=== PATIENT | female | born 1955 | race Caucasian/White ===

== ENCOUNTER 2016-05-24 12:43 | Emergency (ER) | payer MEDICARE, OTHER ==
[2016-05-24 13:16] VITALS: BP 137/92
[2016-05-24] MEDS ORDERED: ALPRAZolam 0.25 MG TABLET PO ONE (13:49)
--- NOTE | 2016-05-24 13:58 | ERNOTE ---
Psychological HPI - General Time Seen by Provider: 05/24/16 13:41 Source: patient Exam Limitations: no limitations Episode Description: Patient has a history of anxiety and depression. I last saw her about a week ago for depression with suicidal ideation. She went home with friends who took care of her medication at that time. She states that they still give her only 1- 2 days at a time. She will be moving in a site house in [place] in two days. AT that time the [employer] workers will be taking care of her medications. Even though she is looking forward to moving there she has been very anxious today and feels her heart racing. she used to be on Xanax and ativan, recently only been on vistaril which is not helping. She is scheduled to see her psychiatrist on four days and is still seeing a counsellor as well Timing/Duration: this morning - Immun/Allergies/Home Medication Immunization: IMMUNIZATION HX Immunizations Up to Date Yes History of Influenza Vaccine No Hx Pneumococcal Vaccination No Review of Systems - Review of Systems Constitutional: Absent: fever EENTM: Absent: sore throat Respiratory: Absent: short of breath Cardiology: Present: palpitations. Absent: chest pain Gastrointestinal/Abdominal: Absent: abdominal pain, nausea, vomiting Neurological: Absent: headache - Patient's Past Medical History Patient History - Medical: Anxiety, Chronic Pain, Depression, Migraines Patient History - Cardiac/Respiratory: Myocardial Infarction - per patient Patient History - Cancer: No Hx of Cancer Patient History - Surgical Procedures: Appendectomy, Cholecystectomy, , Hysterectomy, Other - Family History Father Family History - Medical: Diabetes Type 1, Other Family History - Cardiac/Respiratory: Asthma, Bronchitis, Cardiac Arrest, Coronary Heart Disease, COPD, Hypertension, Pneumonia - Social History Living Situations: home Smoking Status: Current every day smoker Have you smoked in the past 12 months: Yes Alcohol Use: none Drug Use: cocaine, marijuana Psychological Exam - Physical Exam General Appearance: Present: WD/WN, no apparent distress, anxious Neurological: Present: alert, normal mood/affect, oriented x 3 Thoughts/Hallucinations: Present: normal thought pattern, no apparent hallucination Behavior/Eye Contact/Speech: Present: cooperative, good eye contact, normal speech Respiratory: Present: lungs clear, normal breath sounds, no respiratory distress , no accessory muscle use Cardiovascular/Chest: Present: regular rate, rhythm, no murmur Skin Exam: Present: normal color, warm/dry ED Progress - PROGRESS/REASSESSMENT Chief Complaint: Anxiety - VITAL SIGNS Patient's Vital Signs:: I have reviewed the patient's vital signs. Vital Signs - Last Taken Temp 36.0 C L 05/24/16 13:13 Pulse 84 05/24/16 13:13 Resp 14 05/24/16 13:13 BP 137/92 05/24/16 13:13 Pulse Ox 98 05/24/16 13:13 Departure - Departure Clinical Impression: Anxiety attack Disposition: Home self-care Condition: Good Instructions: Panic Attacks, [id number] Additional Instructions: follow up with your psychiatrist and counselor as scheduled Referrals: Janell Galarza MD [Primary Care Provider] - Prescriptions: ALPRAZolam [Xanax] 1 mg PO TID PRN #6 tablet PRN Reason: Anxiety
[2016-05-24] MEDS ORDERED: ALPRAZolam 0.25 MG TABLET ONE (14:04)
== END 2016-05-24 14:12 | disposition home or self-care (01) ==
LOC: ER 12:43
DX: F41.0 Panic disorder [episodic paroxysmal anxiety] (principal); F17.210 Nicotine dependence, cigarettes, uncomplicated

== ENCOUNTER 2016-08-21 12:53 | Emergency (ER) | payer MEDICARE, OTHER ==
--- NOTE | 2016-08-21 13:35 | ERNOTE ---
Addendum entered and electronically signed by Jordy Thurman MD 08/22/16 03:12 : Pt here for court ordered psych eval. waiting for placement. She was given her usual night time meds from her supply once we checked the identity of the medication she had in her med organizer. Original Note: Psychological HPI - Date Date of Service: 08/21/16 - General Chief Complaint: Psychiatric Problem Source: Reports: patient, other - court committment papers Exam Limitations: Reports: clinical condition - Immun/Allergies/Home Medications Allergies/Adverse Reactions: Allergies propranolol [Propranolol] Allergy (Severe, Verified 05/24/16 13:16) Anaphylaxis rash swelling gabapentin [From Neurontin] Allergy (Unknown, Verified 05/24/16 13:16) ampicillin [Ampicillin] Adverse Reaction (Intermediate, Verified 05/24/16 13:16) Itching, rash, swelling aspirin Adverse Reaction (Intermediate, Verified 05/24/16 13:16) Shortness of Breath NSAIDS (Non-Steroidal Anti-Inflamma Adverse Reaction (Intermediate, Verified 07/09 13:16) Shortness of Breath prochlorperazine maleate [From Compazine] Adverse Reaction (Intermediate, Verified 05/24/16 13:16) Itching, rash, swelling codeine [Codeine] Adverse Reaction (Mild, Verified 05/24/16 13:16) Itching, rash, swelling diphenhydramine HCl [From Benadryl] Adverse Reaction (Mild, Verified 05/24/16 13 :16) hyper doxycycline Adverse Reaction (Mild, Verified 05/24/16 13:16) Itching ketorolac tromethamine [From Toradol] Adverse Reaction (Mild, Verified 05/24/16 13:16) rash metoclopramide HCl [From Reglan] Adverse Reaction (Mild, Verified 05/24/16 13:16 ) Itching Penicillins Adverse Reaction (Mild, Verified 05/24/16 13:16) Itching prochlorperazine edisylate [From Compazine] Adverse Reaction (Mild, Verified 07/09 13:16) Itching, rash, swelling promethazine HCl [From Phenergan] Adverse Reaction (Mild, Verified 05/24/16 13: 16) Itching Sulfa (Sulfonamide Antibiotics) [Sulfa(Sulfonamide Antibiotics)] Adverse Reaction (Mild, Verified 05/24/16 13:16) Itching trazadone Allergy (Severe, Uncoded 05/24/16 13:16) Anaphylaxis Home Medications: HOME MEDICATIONS lamoTRIgine [Lamictal Xr] 25 mg PO DAILY 03/17/16 [Last Taken 05/03/16 25 mg] Pantoprazole Sodium [Protonix] 40 mg PO DAILY 03/29/16 [Last Taken 05/03/16 40 mg] Ziprasidone HCl [Geodon] 60 mg PO HS 03/29/16 [Last Taken Unknown] Mirtazapine [Remeron] 15 mg PO HS 05/03/16 [Last Taken Unknown] Topiramate [Topiramate ER] 25 mg PO 05/03/16 [Last Taken Unknown] hydrOXYzine PAMOATE [Hydroxyzine Pamoate] 50 mg PO 05/03/16 [Last Taken 50 mg] Cyclobenzaprine HCl [Flexeril] 10 mg PO TID PRN #30 tab 05/14/16 [Last Taken Unknown] ALPRAZolam [Xanax] 1 mg PO TID PRN #6 tablet 05/24/16 [Last Taken Unknown] - History of Present Illness Narrative: Patient was brought to the [facility] ER by a law officer with court papers in hand. She is now residing in an [facility] residence. The papers alledge hallucinations , delusions and self harming behaviours, including refusing to followthrough with recommended cares. She denies all of this, and is tearful. Repeatedly says she hasn't been hurting anybody. Is worried about her son, who abuses meth and of whom she is afraid. Time Seen by Provider: 08/21/16 13:19 Arrived by: Reports: police Onset/duration: Reports: other Intent: Reports: other Prior Treament: Reports: similar symptoms before Review of Systems - Review of Systems Constitutional: Present: malaise EYE: Present: no symptoms reported ENT: Present: no symptoms reported Respiratory: Present: no symptoms reported Cardiology: Present: no symptoms reported, claudication Genitourinary: Present: no symptoms reported Musculoskeletal: Present: no symptoms reported Skin: Present: no symptoms reported Neurological: Present: emotional problems Endocrine: Present: no symptoms reported Hematologic/Lymphatic: Present: no symptoms reported Psych: Present: no symptoms reported All Other Systems: All systems neg except as marked - Patient's Past Medical History Patient History - Medical: Anxiety, Chronic Pain, Depression, Migraines Patient History - Cardiac/Respiratory: No pertinent hx Patient History - Cancer: No Hx of Cancer Patient History - Surgical Procedures: Appendectomy, Cholecystectomy, , Hysterectomy, Other Patient History - Other: None - Family History Father Family History - Medical: Diabetes Type 1, Other Family History - Cardiac/Respiratory: Asthma, Bronchitis, Cardiac Arrest, Coronary Heart Disease, COPD, Hypertension, Pneumonia - Social History Living Situations: home Abuse History: Hx of Substance Use Psych History: Hx of Anxiety, Hx of Depression Alcohol Use: none Drug Use: cocaine, marijuana - Immunizations Immunizations Up to Date: Yes Hx Pneumococcal Vaccination: No History of Influenza Vaccine: No Physical Exam - Physical Exam General Appearance: Present: wd/wn, alert, anxious Eye Exam: Normal inspection: bilateral, PERRL: bilateral, EOMI: bilateral Ears, Nose, Throat: Present: normal ENT inspection Neck: Present: nontender Respiratory: Present: no respiratory distress Cardiovascular/Chest: Present: regular rate, rhythm Gastrointestinal/Abdominal: Present: normal bowel sounds, nontender, nondistended, soft, no organomegaly Back Exam: Present: normal inspection Extremity Exam: Present: normal inspection, no edema Neurological Exam: Present: alert, disoriented to situation Skin Exam: Present: normal color, warm/dry ED Progress - Results and Orders Patient's Lab Results:: I have reviewed the patient's lab results. - Vital Signs Patient's Vital Signs:: I have reviewed the patient's vital signs. - EKG EKG: NSR EKG read: Interp. by me - Transfer of Care Physician Sign Out: Mario Payne Receiving Physician: Jordy Thurman - waiting on psych bed Expected Disposition: Transfer Departure Clinical Impression: Noncompliance by refusing service, Hallucinations, Delusions, Suicidal behavior - Departure
[2016-08-21 14:29] LABS: Hematocrit 39.9 % (37.0-47.0); Hemoglobin 13.9 gm/dL (12.5-16.0); Mean Cell Volume 85.1 fl (78-100); Mean Corpuscular Hemoglobin 29.6 pg (27-31); Mean Corpuscular Hgb Conc 34.8 g/dl (32-36); Mean Platelet Volume 10.9 fl (6.0-9.5); Neutrophil # 2.8 K/mm3 (1.3-6.0); Neutrophil % 54.3 % (42-75.0); Platelet Count 154 K/mm3 (150-450); Red Blood Count 4.69 M/mm3 (4.2-5.4); Red Cell Distribution Width 13.2 % (11.5-14.0); White Blood Count 5.1 K/mm3 (4.0-10.5)
[2016-08-21 14:45] LABS: ALT 40 U/L (19-67); AST 35 U/L (0-48); Alkaline Phosphatase * 75 U/L (50-170); BUN/Creatinine Ratio 8.1 (9.0-21.6); Bilirubin, Total 0.5 mg/dL (0.0-1.1); Blood Urea Nitrogen 8 mg/dL (3-23); Ca. Corrected For Albumin 9.2 mg/dL (8.4-10.2); Calcium * 9.5 mg/dL (7.9-10.9); Carbon Dioxide 28.3 mmol/L (24-32.6); Chloride 108 mmol/L (97-106); Glucose * 92 mg/dL (70-110); Potassium 3.3 mmol/L (3.4-4.6); Salicylate Less than 2.8 mg/dL (2.8-20.0); Sodium 146 mmol/L (132-142); TSH * 0.845 uIU/mL (0.358-3.74); Total Protein 7.4 gm/dL (6.2-8.2)
--- OUTSIDE RECORDS SUMMARY | 2016-08-21 14:53 | XMS REPORT | Continuity of Care Document ---
:1955 Demographics Address [address] [place] [address] Home Phone [phone] Home Phone [phone] Home Phone [phone] Home Phone [phone] Preferred Language Maltese Marital Status Non- or Amish Affiliation Unknown Race White or Ethnic Group Non- or Author Organization [place] [address] Care Team Providers Name Role Phone Provider, None Per Patient Primary Care Provider Unavailable Source Comments This disclosure is being made pursuant to the KeyOwner program and maynot contain all information available regarding this patient.[facility] Active Allergies and Adverse Reactions Allergen Noted Date Severity Reactions Comments Allopurinol 12/21/2011 Low Rash Codeine 12/21/2011 Low Rash Compazine 02/20/2012 Other (See Comments) Divalproex Sodium 12/21/2011 Low Rash Doxycycline 12/21/2011 Low Rash Erythromycin 12/21/2011 Low Rash Metoclopramide Hcl 12/21/2011 Low Rash Neurontin 01/11/2013 Medium Hallucinations Nsaids 12/21/2011 Other (See Comments) Liver disease Nsaids 03/29/2012 Low Rash Pcn 03/29/2012 High Anaphylaxis Penicillins 12/21/2011 Low Rash Promethazine Hcl 12/21/2011 Low Rash Propranolol 12/21/2011 High Anaphylaxis Sulfa Antibiotics 12/21/2011 Low Rash Sulfa Antibiotics 03/29/2012 Low Rash Tramadol 12/21/2011 Low Rash Trazodone 12/21/2011 High Anaphylaxis Trazodone 03/29/2012 High Anaphylaxis Current Medications Be aware that medications may not be up to date as of this document. Alwaysverify current medications with the patient. Prescription Sig. Disp. Refills Start Date End Date Status albuterol (PROVENTIL Inhale 2 puffs Active HFA;VENTOLIN HFA) 108 into the lungs (90 BASE) MCG/ACT every 6 (six) inhaler hours as needed. ALPRAZolam (XANAX) 0.25 Take 4 tablets by 30 tablet 0 11/14/2012 Active MG tablet mouth 4 (four) times daily as needed. PARoxetine (PAXIL) 20 Take 3 tablets by 90 tablet 0 11/14/2012 Active MG tablet mouth nightly. pantoprazole Sodium Take 40 mg by 05/04/2011 Active (PROTONIX) 40 MG pack mouth. ondansetron (ZOFRAN) 8 Take 8 mg by 01/04/2013 Active MG tablet mouth. clindamycin (CLEOCIN) Take 300 mg by Active 300 MG capsule mouth 4 (four) times daily. 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 Intractable nausea and vomiting 07/16/2012 Diarrhea 07/16/2012 Hypokalemia 07/16/2012 Bronchitis 07/16/2012 Urinary tract infection, site not specified 02/20/2012 Hepatitis C 02/20/2012 Migraine, unspecified, without mention of intractable migraine without 2011 mention of status migrainosus Pyelonephritis 02/20/2012 Nephrolithiasis Depression Anxiety Most Recent Encounters Date Type Specialty Providers Description 08/17/2016 Data Import Immunizations Name Dates Previously Given Next Due Tetanus Toxoid, Absorbed 05/23/2008 Social History Tobacco Use Types Packs/Day Years Used Date Current Every Day Smoker Quit: 08/04/2013 Smokeless Tobacco: Never Used Tobacco Cessation:Ready to Quit: Yes Comments: Alcohol Use Drinks/Week oz/Week Comments No Alcoholic Drinks/day: History of Alcohol Use Denied Last Filed Vital Signs Vital Sign Reading Time Taken Blood Pressure 143/101 09/21/2015 4:35 PM CDT Pulse 93 09/21/2015 4:35 PM CDT Temperature 37.1 C (98.8 F) 09/21/2015 4:44 PM CDT Respiratory Rate 20 09/21/2015 4:35 PM CDT Height 1.676 m (5' 6") 09/21/2015 4:35 PM CDT Weight 79.379 kg (175 lb) 09/21/2015 4:35 PM CDT Body Mass Index 28.26 09/21/2015 4:35 PM CDT Oxygen Saturation 100% 09/21/2015 4:35 PM CDT Plan of Care Health Maintenance Due Date Last Done Comments Mammogram 1955 Hepatitis C Screening 1974 Pneumococcal Medium Risk 19-64 yo (1 of 1 - PPSV23) 01/01/1976 Tetanus/Pertussis (1 - Tdap) 01/01/1976 Pap Smear 1977 Colonoscopy 2006 Well Adult Visit 2006 Influenza Immunization (#1) 2016 Results from Last 3 Months Not on file
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
[2016-08-21] MEDS ORDERED: POTASSIUM CHLORIDE 20 MEQ TABLET.SA PO ONE (15:05)
[2016-08-21] MEDS ORDERED: DEXTROSE 5 % IN WATER 1,000 ML IV ONE (15:10)
[2016-08-21] MEDS ORDERED: POTASSIUM CHLORIDE 20 MEQ TABLET.SA ONE (16:21)
--- NOTE | 2016-08-21 16:31 | OR ---
Anesthesia Procedure Note - Anesthesia Procedure Note Date of Service: 08/21/16 Narrative: Vital Signs - Last Taken Temp 37.0 C 08/21/16 13:01 Pulse 96 08/21/16 13:01 Resp 16 08/21/16 13:01 BP 100/48 08/21/16 13:01 Pulse Ox 94 08/21/16 13:01 O2 Oxygen Delivery Method Room Air 08/21/16 16:27 ANESTHESIA PROCEDURE NOTE Date of Procedure: 08/21/2016. Time of procedure: 1400. Performed by: Marshall Walton CRNA Final Rail Cutter: None. Preprocedure diagnosis: Difficult IV access. Post procedure diagnosis: Same. Procedure: Attempted Ultrasound-guided peripheral vein IV insertion. Indications: This a 60-year-old female in the emergency room in need of an IV. Findings: See below. Details of the procedure: Skin over the intended target site was cleansed with alcohol. Under ultrasound guidance a 22-gauge IV catheter was inserted into a right arm brachial vein without success. The vein was deeper than the length of the IV catheter. The patient wishes for no further IV attempts. As an incidental note the patient is not a candidate for PICC line's based on the size and lack of appropriate means for cannulation. EBL: Minimal. Fluids: N/A. Specimen: N/A. Post procedure condition: The patient tolerated the procedure well. No complications were noted. Thank you for this consultation. Marshall Walton CRNA
[2016-08-21] MEDS: ACETAMINOPHEN 325 MG TABLET PO PRN (16:45)
[2016-08-21] MEDS ORDERED: ACETAMINOPHEN 325 MG TABLET ONE (16:46)
[2016-08-21] MEDS ORDERED: ACETAMINOPHEN 325 MG TABLET PO PRN (18:44)
[2016-08-21] MEDS ORDERED: POTASSIUM CHLORIDE 40 MEQ/15 ML BTL PO ONE (18:45)
[2016-08-21] MEDS ORDERED: ZIPRASIDONE HCL 20 MG CAPSULE PO ONE (23:52)
[2016-08-21] MEDS ORDERED: ALPRAZolam 0.25 MG TABLET PO ONE (23:54)
[2016-08-22] MEDS ORDERED: ZIPRASIDONE HCL 20 MG CAPSULE ONE ×3 (00:03→10:26)
[2016-08-22] MEDS ORDERED: ALPRAZolam 0.25 MG TABLET ONE ×3 (00:03→20:58)
[2016-08-22] MEDS ORDERED: ALPRAZolam 1 MG TABLET ONE (00:15)
[2016-08-22] MEDS ORDERED: BENZTROPINE MESYLATE 0.5 MG TABLET PO ONE ×2 (00:15→21:30)
[2016-08-22] MEDS ORDERED: TEMAZEPAM 15 MG CAPSULE PO ONE ×2 (00:15→21:30)
[2016-08-22] MEDS ORDERED: TOPIRAMATE 50 MG TABLET PO ONE ×2 (00:15→21:30)
[2016-08-22] MEDS ORDERED: TEMAZEPAM 15 MG CAPSULE ONE ×2 (00:15→21:18)
[2016-08-22] MEDS ORDERED: VENLAFAXINE HCL 37.5 MG CAP.SR.24H PO ONE ×4 (00:15→21:30)
[2016-08-22] MEDS ORDERED: BENZTROPINE MESYLATE 0.5 MG TABLET ONE (00:16)
[2016-08-22] MEDS ORDERED: TOPIRAMATE 50 MG TABLET ONE ×2 (00:16→21:18)
[2016-08-22 04:30] LABS: Urine Bilirubin Negative (NEGATIVE); Urine Blood 50 /ul (NEGATIVE); Urine Ketone Negative (NEGATIVE); Urine Nitrite Negative (NEGATIVE); Urine Protein 100 mg/dL (NEGATIVE); Urine Specific Gravity 1.025 SP.GR. (1.005-1.010); Urine Urobilinogen Normal (NORMAL)
[2016-08-22 04:38] LABS: Urine Appearance Cloudy; Urine Bacteria 4+; Urine Color Pale Yellow; Urine RBC 0-5 /hpf (0-5); Urine Squamous Epithelial Cell Few - 1+ /hpf; Urine WBC >50 /hpf (0-5)
[2016-08-22 04:45] LABS: Cocaine Ur Negative (NEGATIVE); Urine Barbiturate Negative (NEGATIVE); Urine Opiates Negative (NEGATIVE); Urine PCP Negative (NEGATIVE); Urine THC Negative (NEGATIVE)
[2016-08-22 04:46] LABS: Urine Benzodiazepines Positive (NEGATIVE)
[2016-08-22] MEDS ORDERED: PANTOPRAZOLE SODIUM 20 MG TABLET.DR ONE ×2 (10:15→10:25)
[2016-08-22] MEDS ORDERED: NITROFURANTOIN/NITROFURAN MAC 100 MG CAPSULE ONE ×3 (10:15→20:59)
[2016-08-22] MEDS: NITROFURANTOIN/NITROFURAN MAC 100 MG CAPSULE PO SCH ×2 (10:36→21:26)
[2016-08-22] MEDS: lamoTRIgine 100 MG TABLET PO SCH (10:36)
[2016-08-22] MEDS: ALPRAZolam 0.25 MG TABLET PO SCH ×2 (10:37→21:27)
[2016-08-22] MEDS ORDERED: ZIPRASIDONE HCL 20 MG CAPSULE PO SCH ×2 (10:45→20:45)
[2016-08-22] MEDS: PANTOPRAZOLE SODIUM 40 MG TABLET.EC PO SCH (10:45)
--- NOTE | 2016-08-22 14:10 | PN ---
Progess Note - Interim Narrative: 08/22/16 14:09 remains stable. looking for placement. from time to time asks for stronger pain medication than tylenol.
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
[2016-08-23] MEDS ORDERED: ALPRAZolam 0.25 MG TABLET ONE (09:29)
[2016-08-23] MEDS ORDERED: PANTOPRAZOLE SODIUM 40 MG TABLET.EC ONE (09:29)
[2016-08-23] MEDS ORDERED: NITROFURANTOIN/NITROFURAN MAC 100 MG CAPSULE ONE (09:29)
[2016-08-23] MEDS ORDERED: ACETAMINOPHEN 325 MG TABLET ONE (09:29)
[2016-08-23] MEDS: lamoTRIgine 100 MG TABLET PO SCH (09:45)
[2016-08-23] MEDS: ALPRAZolam 0.25 MG TABLET PO SCH (09:45)
[2016-08-23] MEDS: PANTOPRAZOLE SODIUM 40 MG TABLET.EC PO SCH (09:45)
[2016-08-23] MEDS: ACETAMINOPHEN 325 MG TABLET PO PRN (09:45)
[2016-08-23] MEDS: NITROFURANTOIN/NITROFURAN MAC 100 MG CAPSULE PO SCH (09:45)
[2016-08-23 14:50] VITALS: BP 135/82
== END 2016-08-23 14:48 | disposition home or self-care (01) ==
LOC: ER 12:53
DX: R44.3 Hallucinations, unspecified (principal); F22 Delusional disorders; R45.851 Suicidal ideations; F41.8 Other specified anxiety disorders; G89.29 Other chronic pain
CPT/HCPCS: 36415; 80053; 80307; 81001; 84443; 85025; 87086; 93005; 99285; G0480; G0481

== ENCOUNTER 2016-09-03 14:48 | Emergency (ER) | payer MEDICARE, OTHER ==
[2016-09-03 16:54] VITALS: BP 113/48
--- NOTE | 2016-09-03 17:02 | ERNOTE ---
Medical Problem HPI - Narrative Date of Service: 09/03/16 - General Chief Complaint: Drug Overdose Time Seen by Provider: 09/03/16 16:59 Source: RN notes reviewed - Immun/Allergies/Home Medications Immunizations: IMMUNIZATION HX Immunizations Up to Date Yes History of Influenza Vaccine No Hx Pneumococcal Vaccination No Allergies/Adverse Reactions: Allergies propranolol [Propranolol] Allergy (Severe, Verified 09/03/16 15:15) Anaphylaxis rash swelling gabapentin [From Neurontin] Allergy (Unknown, Verified 09/03/16 15:15) ampicillin [Ampicillin] Adverse Reaction (Intermediate, Verified 09/03/16 15:15) Itching, rash, swelling aspirin Adverse Reaction (Intermediate, Verified 09/03/16 15:15) Shortness of Breath NSAIDS (Non-Steroidal Anti-Inflamma Adverse Reaction (Intermediate, Verified 15:15) Shortness of Breath prochlorperazine maleate [From Compazine] Adverse Reaction (Intermediate, Verified 09/03/16 15:15) Itching, rash, swelling codeine [Codeine] Adverse Reaction (Mild, Verified 09/03/16 15:15) Itching, rash, swelling diphenhydramine HCl [From Benadryl] Adverse Reaction (Mild, Verified 09/03/16 15 :15) hyper doxycycline Adverse Reaction (Mild, Verified 09/03/16 15:15) Itching ketorolac tromethamine [From Toradol] Adverse Reaction (Mild, Verified 09/03/16 15:15) rash metoclopramide HCl [From Reglan] Adverse Reaction (Mild, Verified 09/03/16 15:15 ) Itching Penicillins Adverse Reaction (Mild, Verified 09/03/16 15:15) Itching prochlorperazine edisylate [From Compazine] Adverse Reaction (Mild, Verified 15:15) Itching, rash, swelling promethazine HCl [From Phenergan] Adverse Reaction (Mild, Verified 09/03/16 15: 15) Itching Sulfa (Sulfonamide Antibiotics) [Sulfa(Sulfonamide Antibiotics)] Adverse Reaction (Mild, Verified 09/03/16 15:15) Itching trazadone Allergy (Severe, Uncoded 09/03/16 15:15) Anaphylaxis Home Medications: HOME MEDICATIONS Pantoprazole Sodium [Protonix] 40 mg PO DAILY 03/29/16 [Last Taken 05/03/16 40 mg] Alprazolam 1 mg PO BID 08/21/16 [Last Taken Unknown] Benztropine Mesylate 2 mg PO HS 08/21/16 [Last Taken Unknown] Lamotrigine [Lamictal] 100 mg PO DAILY 08/21/16 [Last Taken Unknown] Temazepam 30 mg PO HS 08/21/16 [Last Taken Unknown] Topiramate [Trokendi Xr] 50 mg PO HS 08/21/16 [Last Taken Unknown] Venlafaxine HCl [Effexor] 75 mg PO HS 08/21/16 [Last Taken Unknown] Ziprasidone HCl 40 mg PO HS 08/21/16 [Last Taken Unknown] Ziprasidone HCl [Geodon] 60 mg PO DAILY 08/21/16 [Last Taken Unknown] Ziprasidone HCl [Geodon] 60 mg PO HS 08/21/16 [Last Taken Unknown] - History of Present History Narrative: PT TOLD THE NURSE SHE OVERDOSED ON HER XANAX TAKING FOUR OF THEM TODAY FOR HER ANXIETY. SHE TELL THAT STORY TO ME WELL BUT ALSO C/O OF FALLLING DOWN SSTAIRSS LAST NIGHT ABOUT 2100 AT HOME AND NEED PAIN MEDS FOR BACK PAIN. INTERESTINGLY SHE CAN NOT LOCALIZE HER BACK PAIN. SHE DENIES PARALYSIS , NUMBNESSS , OR BOWEL OR BLADDER PROBLEMS. Review of Systems - Review of Systems Constitutional: Present: See HPI All Other Systems: All systems neg except as marked - Patient's Past Medical History Patient History - Medical: Anxiety, Chronic Pain, Depression, Migraines, Other Patient History - Cardiac/Respiratory: No pertinent hx Patient History - Cancer: No Hx of Cancer Patient History - Surgical Procedures: Appendectomy, Cholecystectomy, , Hysterectomy, Other Patient History - Other: None - Family History Father Family History - Medical: Diabetes Type 1, Other Family History - Cardiac/Respiratory: Asthma, Bronchitis, Cardiac Arrest, Coronary Heart Disease, COPD, Hypertension, Pneumonia - Social History Living Situations: alone Abuse History: Hx of Substance Use Psych History: Hx of Anxiety, Hx of Depression Smoking Status: Current every day smoker Alcohol Use: none Drug Use: cocaine, marijuana - Immunizations Immunizations Up to Date: Yes Hx Pneumococcal Vaccination: No History of Influenza Vaccine: No Physical Exam - Physical Exam General Appearance: Present: wd/wn, alert, no apparent distress Eye Exam: Normal inspection: bilateral, PERRL: bilateral, EOMI: bilateral Ears, Nose, Throat: Present: normal ENT inspection Neck: Present: normal inspection, nontender Respiratory: Present: no respiratory distress, normal breath sounds, no accessory muscle use, chest nontender, lungs clear Cardiovascular/Chest: Present: regular rate, rhythm, no murmur, normal peripheral pulses Peripheral Pulses: N=norm/S=strong/W=weak/B=bound/A=absent: Radial (R): Normal, Radial (L): Normal, Dorsalis-pedis (R): Normal, Dorsalis-pedis (L): Normal Gastrointestinal/Abdominal: Present: nontender, soft, no organomegaly Back Exam: Present: normal inspection, normal range of motion, no CVA tenderness , no vertebral tenderness, other - NO COMPLAINT OF PAIN TO PALPATION AND NO SIGN OF ANY BRUISE ABRASION OR SWELLING. Extremity Exam: Present: normal inspection, non-tender, normal range of motion, no edema Neurological Exam: Present: alert, oriented, normal mood/affect, no motor/ sensory deficits, appetizer packer II-XII nml as tested DTR: N=norm/NB=norm/brisk/A=abs/DD=dull/dimin/HC=hyperactive: Knee (R): Normal, Knee (L): Normal, Ankle (R): Normal, Ankle (L): Normal Skin Exam: Present: normal color, warm/dry Lymphatic Exam: Present: no adenopathy ED Progress - Vital Signs Vital Signs: Vital Signs 09/03/16 09/03/16 09/03/16 14:53 15:09 15:16 Temperature 37.0 C 36.2 C L Pulse Rate 68 68 66 Respiratory 14 14 Rate Blood Pressure 136/83 130/86 O2 Sat by Pulse 100 99 Oximetry 09/03/16 16:54 Temperature Pulse Rate Respiratory Rate Blood Pressure 113/48 O2 Sat by Pulse Oximetry - Progress/Reassessment Chief Complaint: Drug Overdose Plan - Plan Plan: I SUSPECT PT IS DRUG SEEKER SO I REMOVED HER OLD RECORDS AND 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 I EXPLAINED THAT CHRONIC PAIN COMPLAINTS WITH NO EVIDENCE OF INJURY CAN NOT BE TREATED OUT O F THE ER AND THAT SHE NEEDS TO FOLLOW UP WITH HER FAMILY DOCTOR. SHE REPORTEDLY HAD BEEN UP IN [place] AT A [facility] THERE UNTIL RECENTLY MOVING BACK DOWN HERE . THIS IS HER 12TH ER VISSIT HERE FOR SIMILAR PROBLEMS IN THE PAST 5-6 MONTHS. Departure - Departure Clinical Impression: Chronic pain syndrome Disposition: Home Follow Up Needed Condition: Good Instructions: Panic Attacks, [id number], Chronic Pain Additional Instructions: CONTINUE WITH YOUR ICE FOR 20 MINS FOLLOWED BY HEAT FOR 20 MINS , EVERY 4 HOURS TO YOUR SORE AREA. IT IS OK TO TAKE TYLENOL 650 MG EVERY 6-8 HOURS FOR COMFORT. CHRONIC PAIN PROBLEMS CAN NOT AND SHOULD NOT BE HANDLED OUT OF THE ER SO MAKE SURE TO FOLLOW UP WITH [facility] FAMILY DOCTOR OR PRIMARY CARE DOCTOR ON TUESDAY AND BE SURE TO NOT OVER USE YOUR XANAX AND WE WILL NOT BE REFILLING THAT FROM THE ER EITHER. IT IS ALSO OK TO TRY BIO-FREEZE OR PREFORM SPRAY OR OINTMENT( AVAILABLE OVER THE COUNTER. TO YOUR SORE AREA ,
--- OUTSIDE RECORDS SUMMARY | 2016-09-03 17:10 | XMS REPORT | Continuity of Care Document ---
:1955 Demographics Address [address] [place] [address] Home Phone [phone] Home Phone [phone] Home Phone [phone] Home Phone [phone] Preferred Language Bhutanese Marital Status Non- or Evangelical Affiliation Unknown Race White or Ethnic Group Non- or Author Organization [employer] [place] [address] Care Team Providers Name Role Phone Provider, None Per Patient Primary Care Provider Unavailable Source Comments This disclosure is being made pursuant to the [employer] program and maynot contain all information available regarding this patient.[employer] Active Allergies and Adverse Reactions Allergen Noted [...]
--- OUTSIDE RECORDS SUMMARY | 2016-09-03 17:10 | XMS REPORT | Continuity of Care Document ---
:1955 Author Organization [facility] ([facility]) Address [place] [address] Phone [phone] Care Team Providers Name Role Phone SonyaCecilio Primary Care Provider [phone] Source Comments This disclosure is being made pursuant to the Care Everywhere program, applicable federal and state laws, and may not contain all informaitonavailable regarding this patient.[facility] ([facility]) Active Allergies and Adverse Reactions Allergen Noted [...]
== END 2016-09-03 17:15 | disposition home or self-care (01) ==
LOC: ER 14:48
DX: G89.4 Chronic pain syndrome (principal); Z72.0 Tobacco use; F41.8 Other specified anxiety disorders

== ENCOUNTER 2016-09-27 22:59 | Emergency (ER) | payer MEDICARE, OTHER ==
[2016-09-28] MEDS ORDERED: NORMAL SALINE 1,000 ML IV ONE (00:26)
[2016-09-28] MEDS ORDERED: METHYLPREDNISOLONE SOD SUCC/PF 125 MG/2 ML VIAL IV ONE (00:26)
[2016-09-28] MEDS ORDERED: MAGNESIUM SULFATE IN WATER 50 ML IV ONE (00:27)
--- NOTE | 2016-09-28 00:29 | ERNOTE ---
Medical Problem HPI - General Chief Complaint: General Assessment Time Seen by Provider: 09/28/16 00:16 Source: patient Exam Limitations: no limitations - Immun/Allergies/Home Medications Immunizations: IMMUNIZATION HX Immunizations Up to Date Yes History of Influenza Vaccine No Hx Pneumococcal Vaccination No Allergies/Adverse Reactions: Allergies propranolol [Propranolol] Allergy (Severe, Verified 09/03/16 15:15) Anaphylaxis rash swelling gabapentin [From Neurontin] Allergy (Unknown, Verified 09/03/16 15:15) ampicillin [Ampicillin] Adverse Reaction (Intermediate, Verified 09/03/16 15:15) Itching, rash, swelling aspirin Adverse Reaction (Intermediate, Verified 09/03/16 15:15) Shortness of Breath NSAIDS (Non-Steroidal Anti-Inflamma Adverse Reaction (Intermediate, Verified 15:15) Shortness of Breath prochlorperazine maleate [From Compazine] Adverse Reaction (Intermediate, Verified 09/03/16 15:15) Itching, rash, swelling codeine [Codeine] Adverse Reaction (Mild, Verified 09/03/16 15:15) Itching, rash, swelling diphenhydramine HCl [From Benadryl] Adverse Reaction (Mild, Verified 09/03/16 15 :15) hyper doxycycline Adverse Reaction (Mild, Verified 09/03/16 15:15) Itching ketorolac tromethamine [From Toradol] Adverse Reaction (Mild, Verified 09/03/16 15:15) rash metoclopramide HCl [From Reglan] Adverse Reaction (Mild, Verified 09/03/16 15:15 ) Itching Penicillins Adverse Reaction (Mild, Verified 09/03/16 15:15) Itching prochlorperazine edisylate [From Compazine] Adverse Reaction (Mild, Verified 15:15) Itching, rash, swelling promethazine HCl [From Phenergan] Adverse Reaction (Mild, Verified 09/03/16 15: 15) Itching Sulfa (Sulfonamide Antibiotics) [Sulfa(Sulfonamide Antibiotics)] Adverse Reaction (Mild, Verified 09/03/16 15:15) Itching trazadone Allergy (Severe, Uncoded 09/03/16 15:15) Anaphylaxis Home Medications: HOME MEDICATIONS Pantoprazole Sodium [Protonix] 40 mg PO DAILY 03/29/16 [Last Taken 05/03/16 40 mg] Alprazolam 1 mg PO BID 08/21/16 [Last Taken Unknown] Benztropine Mesylate 2 mg PO HS 08/21/16 [Last Taken Unknown] Lamotrigine [Lamictal] 100 mg PO DAILY 08/21/16 [Last Taken Unknown] Temazepam 30 mg PO HS 08/21/16 [Last Taken Unknown] Topiramate [Trokendi Xr] 50 mg PO HS 08/21/16 [Last Taken Unknown] Venlafaxine HCl [Effexor] 75 mg PO HS 08/21/16 [Last Taken Unknown] Ziprasidone HCl 40 mg PO HS 08/21/16 [Last Taken Unknown] Ziprasidone HCl [Geodon] 60 mg PO DAILY 08/21/16 [Last Taken Unknown] Ziprasidone HCl [Geodon] 60 mg PO HS 08/21/16 [Last Taken Unknown] - History of Present History Narrative: Pt was released from [facility] 2 days ago after a 7 day stay. She states she had a headache since she was in the hospital there, continues to have a right sided headache. Timing: constant Severity: severe Modifying Factors - (Worsens): Present: movement Review of Systems - Review of Systems Constitutional: Present: no symptoms reported EYE: Present: see HPI, eye pain - headache behind right eye ENT: Present: ear pain - for past few days Respiratory: Present: no symptoms reported Cardiology: Present: no symptoms reported Gastrointestinal/Abdominal: Present: no symptoms reported Genitourinary: Present: no symptoms reported Musculoskeletal: Present: neck pain Skin: Present: no symptoms reported Neurological: Present: See HPI Endocrine: Present: no symptoms reported Hematologic/Lymphatic: Present: no symptoms reported Psych: Present: anxiety, depressed - Patient's Past Medical History Patient History - Medical: Anxiety, Chronic Pain, Depression, Migraines, Other Patient History - Cardiac/Respiratory: No pertinent hx Patient History - Cancer: No Hx of Cancer Patient History - Surgical Procedures: Appendectomy, Cholecystectomy, , Hysterectomy, Other Patient History - Other: None - Family History Father Family History - Medical: Diabetes Type 1, Other Family History - Cardiac/Respiratory: Asthma, Bronchitis, Cardiac Arrest, Coronary Heart Disease, COPD, Hypertension, Pneumonia - Social History Living Situations: alone Abuse History: Hx of Substance Use Psych History: Hx of Anxiety, Hx of Depression Smoking Status: Current every day smoker Alcohol Use: none Drug Use: cocaine, marijuana - Immunizations Immunizations Up to Date: Yes Hx Pneumococcal Vaccination: No History of Influenza Vaccine: No Physical Exam - Physical Exam General Appearance: Present: mild distress, lethargic Eye Exam: Normal inspection: bilateral, PERRL: bilateral, EOMI: bilateral Ears, Nose, Throat: Present: normal ENT inspection Neck: Present: normal inspection, supple Respiratory: Present: no respiratory distress, normal breath sounds, lungs clear Cardiovascular/Chest: Present: regular rate, rhythm Gastrointestinal/Abdominal: Present: normal bowel sounds, nondistended, soft Extremity Exam: Present: normal inspection, normal range of motion Neurological Exam: Present: alert, oriented, no motor/sensory deficits Skin Exam: Present: normal color Lymphatic Exam: Present: no adenopathy ED Progress - Results and Orders Patient's Lab Results:: I have reviewed the patient's lab results. Results and Orders: Laboratory Tests 09/28/16 09/28/16 01:40 01:40 WBC 8.2 Hgb 13.2 Hct 38.9 Plt Count 157 Sodium 143 H Potassium 3.3 L Chloride 106 Carbon Dioxide 26.5 Anion Gap 13.8 BUN 11 Creatinine 0.99 Est GFR (Non-Af Amer) 61 BUN/Creatinine Ratio 11.1 Random Glucose 93 Calcium 9.2 Calcium Adj for Albumin 9.1 Total Bilirubin 0.4 AST 25 ALT 28 Alkaline Phosphatase 75 Total Protein 7.1 Albumin 3.7 - Vital Signs Patient's Vital Signs:: I have reviewed the patient's vital signs. Vital Signs: Vital Signs 09/27/16 23:00 Temperature 37.0 C Pulse Rate 88 Respiratory 20 Rate Blood Pressure 127/67 O2 Sat by Pulse 98 Oximetry - X-Ray X-Ray #1 X-Ray: chest Interpretation: Interp. by me X-ray Comments: Nothing acute - Progress/Reassessment Chief Complaint: General Assessment Progress Note-Subjective: 09/28/16 02:54 pt states she is somewhat better but still has pain. Norflex ordered 09/28/16 04:00 Pt has no pain while head is still. Pain much improved even with head movement Departure - Departure Clinical Impression: Headache, chronic migraine without aura Qualifiers: Status migrainosus presence: without status migrainosus Intractability: not intractable Qualified Code(s): G43.709 - Chronic migraine without aura, not intractable, without status migrainosus Disposition: Home self-care Condition: Good Instructions: Migraine Headache, [id number] Additional Instructions: sleep today as soon as you get home. Work with your regular doctor to prevent headaches.
[2016-09-28] MEDS ORDERED: METHYLPREDNISOLONE SOD SUCC/PF 125 MG/2 ML VIAL ONE (01:35)
[2016-09-28 01:46] LABS: Hematocrit 38.9 % (37.0-47.0); Hemoglobin 13.2 gm/dL (12.5-16.0); Mean Cell Volume 88.6 fl (78-100); Mean Corpuscular Hemoglobin 30.1 pg (27-31); Mean Corpuscular Hgb Conc 33.9 g/dl (32-36); Mean Platelet Volume 10.5 fl (6.0-9.5); Neutrophil # 5.4 K/mm3 (1.3-6.0); Neutrophil % 65.3 % (42-75.0); Platelet Count 157 K/mm3 (150-450); Red Blood Count 4.39 M/mm3 (4.2-5.4); Red Cell Distribution Width 13.3 % (11.5-14.0); White Blood Count 8.2 K/mm3 (4.0-10.5)
[2016-09-28 02:01] LABS: Albumin * 3.7 gm/dl (3.4-5.0); Anion Gap 13.8 mmol/L (6.8-13.8); BUN/Creatinine Ratio 11.1 (9.0-21.6); Bilirubin, Total 0.4 mg/dL (0.0-1.1); Ca. Corrected For Albumin 9.1 mg/dL (8.4-10.2); Calcium * 9.2 mg/dL (7.9-10.9); Carbon Dioxide 26.5 mmol/L (24-32.6); Potassium 3.3 mmol/L (3.4-4.6); Total Protein 7.1 gm/dL (6.2-8.2)
[2016-09-28] MEDS ORDERED: ORPHENADRINE CITRATE 30 MG/ML VIAL IV ONE (02:51)
[2016-09-28] MEDS ORDERED: ORPHENADRINE CITRATE 30 MG/ML VIAL ONE (02:54)
[2016-09-28 04:12] VITALS: BP 115/81
--- OUTSIDE RECORDS SUMMARY | 2016-09-28 04:15 | XMS REPORT | Continuity of Care Document ---
:1955 Demographics Address [address] [place] [address] Home Phone [phone] Home Phone [phone] Home Phone [phone] Home Phone [phone] Preferred Language Maldivian Marital Status Non- or Latter-Day Affiliation Unknown Race White or Ethnic Group Non- or Author Organization [employer] [place] [address] Care Team Providers Name Role Phone Provider, None Per Patient Primary Care Provider Unavailable Source Comments This disclosure is being made pursuant to the [employer] program and maynot contain all information available regarding this patient.[employer] Active Allergies and Adverse Reactions Allergen Noted [...] status migrainosus Pyelonephritis 02/20/2012 Nephrolithiasis Depression Anxiety Immunizations Name Dates Previously Given Next Due [...]
--- OUTSIDE RECORDS SUMMARY | 2016-09-28 04:15 | XMS REPORT | Continuity of Care Document ---
:1955 Author Organization [facility] ([facility]) Address [address] [place] [address] Phone [phone] Care Team Providers Name Role Phone SonyaCecilio Primary Care Provider [phone] Source Comments This disclosure is being made pursuant to the Care Everywhere program, applicable federal and state laws, and may not contain all informaitonavailable regarding this patient.[facility] ([facility]) Active Allergies and Adverse Reactions Allergen Noted [...]
== END 2016-09-28 04:19 | disposition home or self-care (01) ==
LOC: ER 22:59
DX: G43.709 Chronic migraine without aura, not intractable, without status migrainosus (principal); Z72.0 Tobacco use

== ENCOUNTER 2016-10-02 10:55 | Emergency (ER) | payer MEDICARE, OTHER ==
[2016-10-02 11:09] VITALS: BP 147/88
--- NOTE | 2016-10-02 11:14 | ERNOTE ---
Psychological HPI - Date Date of Service: 10/02/16 - General Chief Complaint: Psychiatric Problem Source: Reports: patient - Immun/Allergies/Home Medications Allergies/Adverse Reactions: Allergies propranolol [Propranolol] Allergy (Severe, Verified 10/02/16 11:08) Anaphylaxis rash swelling gabapentin [From Neurontin] Allergy (Unknown, Verified 10/02/16 11:08) ampicillin [Ampicillin] Adverse Reaction (Intermediate, Verified 10/02/16 11:08) Itching, rash, swelling aspirin Adverse Reaction (Intermediate, Verified 10/02/16 11:08) Shortness of Breath NSAIDS (Non-Steroidal Anti-Inflamma Adverse Reaction (Intermediate, Verified 11:08) Shortness of Breath prochlorperazine maleate [From Compazine] Adverse Reaction (Intermediate, Verified 10/02/16 11:08) Itching, rash, swelling codeine [Codeine] Adverse Reaction (Mild, Verified 10/02/16 11:08) Itching, rash, swelling diphenhydramine HCl [From Benadryl] Adverse Reaction (Mild, Verified 10/02/16 11 :08) hyper doxycycline Adverse Reaction (Mild, Verified 10/02/16 11:08) Itching ketorolac tromethamine [From Toradol] Adverse Reaction (Mild, Verified 10/02/16 11:08) rash metoclopramide HCl [From Reglan] Adverse Reaction (Mild, Verified 10/02/16 11:08 ) Itching Penicillins Adverse Reaction (Mild, Verified 10/02/16 11:08) Itching prochlorperazine edisylate [From Compazine] Adverse Reaction (Mild, Verified 11:08) Itching, rash, swelling promethazine HCl [From Phenergan] Adverse Reaction (Mild, Verified 10/02/16 11: 08) Itching Sulfa (Sulfonamide Antibiotics) [Sulfa(Sulfonamide Antibiotics)] Adverse Reaction (Mild, Verified 10/02/16 11:08) Itching trazadone Allergy (Severe, Uncoded 10/02/16 11:08) Anaphylaxis Home Medications: HOME MEDICATIONS Pantoprazole Sodium [Protonix] 40 mg PO DAILY 03/29/16 [Last Taken 05/03/16 40 mg] Alprazolam 1 mg PO BID 08/21/16 [Last Taken Unknown] Benztropine Mesylate 4 mg PO BID 08/21/16 [Last Taken Unknown] Venlafaxine HCl [Effexor] 75 mg PO HS 08/21/16 [Last Taken Unknown] Ziprasidone HCl 40 mg PO HS 08/21/16 [Last Taken Unknown] Ziprasidone HCl [Geodon] 60 mg PO BID 08/21/16 [Last Taken Unknown] Alprazolam 2 mg PO HS 10/02/16 [Last Taken Unknown] Donepezil HCl [Aricept] 5 mg PO HS 10/02/16 [Last Taken Unknown] Donepezil HCl [Aricept] 10 mg PO HS 10/02/16 [Last Taken Unknown] Lamotrigine [Lamictal] 100 mg PO DAILY 10/02/16 [Last Taken Unknown] Nitrofurantoin/Nitrofuran Mac [Macrobid] 100 mg PO Q12H #20 cap 10/02/16 [Last Taken Unknown] Prazosin HCl 2 mg PO HS 10/02/16 [Last Taken Unknown] Sertraline HCl [Zoloft] 100 mg PO DAILY 10/02/16 [Last Taken Unknown] - History of Present Illness Narrative: HERE BECAUSE SHE JUST FEELS "HOPELESS". SHE SAYS SHE HAS BEEN THINKING ABOUT TAKING A BUNCH OF PILLS. APPARENTLY THEY ARE HANDLED BY [employer] AND HANDED OUT TO HER AND SHE CLAIMS SHE HAD BEEN TAKING THEM DIRECTED. SHE HAD RECENT STAY AT [facility] PS[facility]CH 2 WEEKS AGO. HAD MEDS RECENTLY ADJUSTED AT THAT TIME. PT JUST HERE 4 DAYS AGO , 2 DAYS REMOVED FROM HER DISCHARGE AT [facility] WITH H.A. COMPLAINTS AND RX'D NORFLEX THEN. SHE SAYS SHE THINKS SHE NEEDS TO BE BACK IN THE HOSPITAL. SHE SAYS HER SON IS "IN TROUBLE" AND MY DAUGHTER.... AND THEN WON' T GO ON. SHE SAYS SOMEONE FROM [facility] BROUGHT HER HERE. Time Seen by Provider: 10/02/16 11:38 Review of Systems - Review of Systems Constitutional: Present: See HPI Psych: Present: anxiety, depressed, emotional problems All Other Systems: All systems neg except as marked - Patient's Past Medical History Patient History - Medical: Anxiety, Chronic Pain, Depression, Migraines, Other Patient History - Cardiac/Respiratory: No pertinent hx Patient History - Cancer: No Hx of Cancer Patient History - Surgical Procedures: Appendectomy, Cholecystectomy, , Hysterectomy, Other Patient History - Other: None - Family History Father Family History - Medical: Diabetes Type 1, Other Family History - Cardiac/Respiratory: Asthma, Bronchitis, Cardiac Arrest, Coronary Heart Disease, COPD, Hypertension, Pneumonia - Social History Living Situations: alone Abuse History: Hx of Substance Use Psych History: Hx of Anxiety, Hx of Depression Smoking Status: Current every day smoker Have you smoked in the past 12 months: Yes Alcohol Use: none Drug Use: cocaine, marijuana - Immunizations Immunizations Up to Date: Yes Hx Pneumococcal Vaccination: No History of Influenza Vaccine: No Physical Exam - Physical Exam General Appearance: Present: wd/wn, alert, mild distress - WEEPY AND JITTERY, A & O , VSS, DEMANDING ATIVAN RIGHT AFTER SHE GOT HERE. Eye Exam: Normal inspection: bilateral, PERRL: bilateral, EOMI: bilateral Ears, Nose, Throat: Present: normal ENT inspection, other - ENDENTULOUS Neck: Present: normal inspection, nontender Respiratory: Present: no respiratory distress, normal breath sounds, chest nontender, lungs clear Cardiovascular/Chest: Present: regular rate, rhythm, no murmur Gastrointestinal/Abdominal: Present: nontender, nondistended, soft, no organomegaly Back Exam: Present: normal inspection, normal range of motion, no CVA tenderness Extremity Exam: Present: normal inspection, non-tender, normal range of motion Neurological Exam: Present: alert, oriented Skin Exam: Present: normal color, warm/dry ED Progress - Results and Orders Patient's Lab Results:: I have reviewed the patient's lab results. - HER BLOOD WORK SHOWS LOW TSH. UDS IS + FOR BENZO'S AND COCAINE. CCUA ALSO SHOWS UTI. - Vital Signs Patient's Vital Signs:: I have reviewed the patient's vital signs. Vital Signs: Vital Signs 10/02/16 10/02/16 10:55 11:04 Temperature 37.2 C Pulse Rate 95 Respiratory 14 Rate Blood Pressure 118/77 147/88 O2 Sat by Pulse 95 Oximetry - Progress/Reassessment Chief Complaint: Psychiatric Problem Plan - Plan Plan: PT NOW SAYS SHE IS WILLING TO GO HOME AND FOLLOWUP WITH HER OUTPATIENT DOCTORS. I WILL TREAT THE UTI. DANIEL IS COMING TO TALK TO HER ABOUT BETTER CRISIS MANAGEMENT IN THE FUTURE BEFORE WE DISCHARGE HER. Departure Clinical Impression: Severe recurrent major depression without psychotic features, Acute UTI - Departure Disposition: Home Follow Up Needed Condition: Fair Instructions: Urinary Tract Infection, Adult, [id number] Additional Instructions: TAKE ONLY YOUR PRESCRIBED MEDICINES. RECHECK WITH YOUR DR /PSYCHIATRIST ON TUESDAY. Referrals: NONE,NONE [Primary Care Provider] - Prescriptions: Nitrofurantoin/Nitrofuran Mac [Macrobid] 100 mg PO Q12H #20 cap
[2016-10-02 11:56] LABS: Hematocrit 41.3 % (37.0-47.0); Hemoglobin 14.2 gm/dL (12.5-16.0); Mean Corpuscular Hemoglobin 30.6 pg (27-31); Mean Corpuscular Hgb Conc 34.4 g/dl (32-36); Mean Platelet Volume 10.1 fl (6.0-9.5); Neutrophil # 5.3 K/mm3 (1.3-6.0); Neutrophil % 67.5 % (42-75.0); Platelet Count 157 K/mm3 (150-450); Red Blood Count 4.64 M/mm3 (4.2-5.4); Red Cell Distribution Width 13.3 % (11.5-14.0); White Blood Count 7.9 K/mm3 (4.0-10.5)
[2016-10-02 11:57] LABS: Urine Bilirubin Negative (NEGATIVE); Urine Blood 50 /ul (NEGATIVE); Urine Ketone Negative (NEGATIVE); Urine Protein 30 mg/dL (NEGATIVE); Urine Specific Gravity 1.025 SP.GR. (1.005-1.010); Urine Urobilinogen Normal (NORMAL)
[2016-10-02 12:02] LABS: Urine Appearance Slightly Cloudy; Urine Color Yellow; Urine Nitrite Positive (NEGATIVE)
[2016-10-02 12:03] LABS: Urine Bacteria 3+; Urine Renal Epithelial Cell Few - 1+ /hpf; Urine WBC 25-50 /hpf (0-5)
--- OUTSIDE RECORDS SUMMARY | 2016-10-02 12:05 | XMS REPORT | Continuity of Care Document ---
:1955 Author Organization [facility] ([facility]) Address [address] [place] [address] Phone [phone] Care Team Providers Name Role Phone SonyaCecilio Primary Care Provider [phone] Source Comments This disclosure is being made pursuant to the Care Everywhere program, applicable federal and state laws, and may not contain all informaitonavailable regarding this patient.[facility] ([facility]) Active Allergies and Adverse Reactions Allergen Noted [...]
--- OUTSIDE RECORDS SUMMARY | 2016-10-02 12:05 | XMS REPORT | Continuity of Care Document ---
:1955 Demographics Address [address] [place] [address] Home Phone [phone] Home Phone [phone] Home Phone [phone] Home Phone [phone] Preferred Language Maldivian Marital Status Non- or Adventist Affiliation Unknown Race White or Ethnic Group Non- or Author Organization [employer] [place] [address] Care Team Providers Name Role Phone Provider, None Per Patient Primary Care Provider Unavailable Source Comments This disclosure is being made pursuant to the [employer] program and maynot contain all information available regarding this patient.[employer] Active Allergies and Adverse Reactions Allergen Noted [...]
[2016-10-02 12:08] LABS: Urine Barbiturate Negative (NEGATIVE); Urine Opiates Negative (NEGATIVE); Urine PCP Negative (NEGATIVE); Urine THC Negative (NEGATIVE)
[2016-10-02 12:10] LABS: Cocaine Ur Positive (NEGATIVE); Urine Benzodiazepines Positive (NEGATIVE)
[2016-10-02 12:20] LABS: ALT 34 U/L (19-67); AST 27 U/L (0-48); Albumin * 3.5 gm/dl (3.4-5.0); Alkaline Phosphatase * 78 U/L (50-170); Anion Gap 12.6 mmol/L (6.8-13.8); BUN/Creatinine Ratio 14.7 (9.0-21.6); Bilirubin, Total 0.5 mg/dL (0.0-1.1); Blood Urea Nitrogen 15 mg/dL (3-23); Ca. Corrected For Albumin 9.4 mg/dL (8.4-10.2); Calcium * 9.3 mg/dL (7.9-10.9); Carbon Dioxide 28.8 mmol/L (24-32.6); Chloride 103 mmol/L (97-106); Glucose * 101 mg/dL (70-110); Potassium 3.4 mmol/L (3.4-4.6); Salicylate 3.2 mg/dL (2.8-20.0); Sodium 141 mmol/L (132-142); Total Protein 6.8 gm/dL (6.2-8.2)
== END 2016-10-02 13:01 | disposition home or self-care (01) ==
LOC: ER 10:55
DX: F33.2 Major depressive disorder, recurrent severe without psychotic features (principal); N39.0 Urinary tract infection, site not specified; F17.200 Nicotine dependence, unspecified, uncomplicated; Z79.899 Other long term (current) drug therapy
CPT/HCPCS: 36415; 80053; 80307; 81001; 84443; 85025; 87077; 87086; 87186; 99283; G0480; G0481

== ENCOUNTER 2016-10-02 17:34 | Emergency (ER) | payer MEDICARE, OTHER ==
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
--- OUTSIDE RECORDS SUMMARY | 2016-10-02 18:52 | XMS REPORT | Continuity of Care Document ---
:1955 Demographics Address [address] [place] [address] Home Phone [phone] Home Phone [phone] Home Phone [phone] Home Phone [phone] Preferred Language Pap[place] Guinean Marital Status Non- or Religion Affiliation Unknown Race White or Ethnic Group Non- or Author Organization [employer] [place] [address] Care Team Providers Name Role Phone Provider, None Per Patient Primary Care Provider Unavailable Source Comments This disclosure is being made pursuant to the [employer] program and maynot contain all information available regarding this patient.[employer] Active Allergies and Adverse Reactions Allergen Noted [...]
--- OUTSIDE RECORDS SUMMARY | 2016-10-02 18:52 | XMS REPORT | Continuity of Care Document ---
:1955 Author Organization [facility] ([facility]) Address [address] [place] [address] Phone [phone] Care Team Providers Name Role Phone SonyaCecilio Primary Care Provider [phone] Source Comments This disclosure is being made pursuant to the Care Everywhere program, applicable federal and state laws, and may not contain all informaitonavailable regarding this patient.[facility] ([facility]) Active Allergies and Adverse Reactions Allergen [...]
[2016-10-03 03:05] VITALS: BP 106/60
[2016-10-03] MEDS ORDERED: NITROFURANTOIN/NITROFURAN MAC 100 MG CAPSULE ONE (03:26)
[2016-10-03] MEDS ORDERED: NITROFURANTOIN/NITROFURAN MAC 100 MG CAPSULE PO SCH (09:00)
== END 2016-10-03 05:42 | disposition short-term general hospital (02) ==
LOC: ER 17:34
DX: T42.4X1A Poisoning by benzodiazepines, accidental (unintentional), initial encounter (principal); R45.851 Suicidal ideations
CPT/HCPCS: 36415; 93005; 94760; 99283; G0480; G0481

== ENCOUNTER 2016-10-14 10:46 | Emergency (ER) | payer MEDICARE, OTHER ==
--- NOTE | 2016-10-14 11:19 | ERNOTE ---
Medical Problem HPI - Narrative Date of Service: 10/14/16 - General Chief Complaint: General Assessment Time Seen by Provider: 10/14/16 11:18 Source: patient, RN/MD, RN notes reviewed Exam Limitations: no limitations - Immun/Allergies/Home Medications Immunizations: IMMUNIZATION HX Immunizations Up to Date Yes History of Influenza Vaccine No Hx Pneumococcal Vaccination No Allergies/Adverse Reactions: Allergies propranolol [Propranolol] Allergy (Severe, Verified 10/14/16 11:10) Anaphylaxis rash swelling gabapentin [From Neurontin] Allergy (Unknown, Verified 10/14/16 11:10) ampicillin [Ampicillin] Adverse Reaction (Intermediate, Verified 10/14/16 11:10) Itching, rash, swelling aspirin Adverse Reaction (Intermediate, Verified 10/14/16 11:10) Shortness of Breath NSAIDS (Non-Steroidal Anti-Inflamma Adverse Reaction (Intermediate, Verified 11:10) Shortness of Breath prochlorperazine maleate [From Compazine] Adverse Reaction (Intermediate, Verified 10/14/16 11:10) Itching, rash, swelling codeine [Codeine] Adverse Reaction (Mild, Verified 10/14/16 11:10) Itching, rash, swelling diphenhydramine HCl [From Benadryl] Adverse Reaction (Mild, Verified 10/14/16 11 :10) hyper doxycycline Adverse Reaction (Mild, Verified 10/14/16 11:10) Itching ketorolac tromethamine [From Toradol] Adverse Reaction (Mild, Verified 10/14/16 11:10) rash metoclopramide HCl [From Reglan] Adverse Reaction (Mild, Verified 10/14/16 11:10 ) Itching Penicillins Adverse Reaction (Mild, Verified 10/14/16 11:10) Itching prochlorperazine edisylate [From Compazine] Adverse Reaction (Mild, Verified 11:10) Itching, rash, swelling promethazine HCl [From Phenergan] Adverse Reaction (Mild, Verified 10/14/16 11: 10) Itching Sulfa (Sulfonamide Antibiotics) [Sulfa(Sulfonamide Antibiotics)] Adverse Reaction (Mild, Verified 10/14/16 11:10) Itching trazadone Allergy (Severe, Uncoded 10/14/16 11:10) Anaphylaxis Home Medications: HOME MEDICATIONS Pantoprazole Sodium [Protonix] 40 mg PO DAILY 03/29/16 [Last Taken 05/03/16 40 mg] Alprazolam 1 mg PO BID 08/21/16 [Last Taken Unknown] Benztropine Mesylate 4 mg PO BID 08/21/16 [Last Taken Unknown] Venlafaxine HCl [Effexor] 75 mg PO HS 08/21/16 [Last Taken Unknown] Ziprasidone HCl 40 mg PO HS 08/21/16 [Last Taken Unknown] Ziprasidone HCl [Geodon] 60 mg PO BID 08/21/16 [Last Taken Unknown] Alprazolam 2 mg PO HS 10/02/16 [Last Taken Unknown] Donepezil HCl [Aricept] 5 mg PO HS 10/02/16 [Last Taken Unknown] Donepezil HCl [Aricept] 10 mg PO HS 10/02/16 [Last Taken Unknown] Lamotrigine [Lamictal] 100 mg PO DAILY 10/02/16 [Last Taken Unknown] Nitrofurantoin/Nitrofuran Mac [Macrobid] 100 mg PO Q12H #20 cap 10/02/16 [Last Taken Unknown] Prazosin HCl 2 mg PO HS 10/02/16 [Last Taken Unknown] Sertraline HCl [Zoloft] 100 mg PO DAILY 10/02/16 [Last Taken Unknown] Potassium Chloride [K-Dur] 20 meq PO BID #10 tablet.sa 10/14/16 [Last Taken Unknown] - History of Present History Narrative: Delia is a 60-year-old female who presents to the emergency department for a low potassium. Her primary care provider had routine lab work done for her yesterday. Her potassium was 2.6. It was also done on October 02 in the level was 3.4 at that time. The patient reports having problems with low potassium levels in the past. She denies any vomiting and reports that her oral intake has been adequate. Date (Duration): 10/14/16 Review of Systems - Review of Systems Constitutional: Absent: recent illness, fever, weight loss EYE: Present: no symptoms reported ENT: Present: no symptoms reported Respiratory: Absent: shortness of breath, cough Cardiology: Absent: chest pain, palpitations, syncope Gastrointestinal/Abdominal: Absent: nausea, vomiting, abdominal pain, eating less, drinking less Genitourinary: Present: no symptoms reported Musculoskeletal: Absent: muscle pain, joint pain Skin: Absent: rash, lesions Neurological: Absent: dizziness/light-headedness, weakness, numbness Endocrine: Present: no symptoms reported Hematologic/Lymphatic: Present: no symptoms reported Psych: Present: no symptoms reported - Patient's Past Medical History Patient History - Medical: Anxiety, Chronic Pain, Depression, Migraines, Other Patient History - Cardiac/Respiratory: No pertinent hx Patient History - Cancer: No Hx of Cancer Patient History - Surgical Procedures: Appendectomy, Cholecystectomy, , Hysterectomy, Other Patient History - Other: None LMP (females 10-50): Menopausal - Family History Father Family History - Medical: Diabetes Type 1, Other Family History - Cardiac/Respiratory: Asthma, Bronchitis, Cardiac Arrest, Coronary Heart Disease, COPD, Hypertension, Pneumonia - Social History Living Situations: home Abuse History: Hx of Substance Use Psych History: Psychiatric Hx, Hx of Anxiety, Hx of Depression, Hx of Suicide Attempt, Current tx/ever been on anti-depressants or anti-anxiety meds Does anyone smoke in the home?: Yes Smoking Status: Current every day smoker Have you smoked in the past 12 months: Yes Alcohol Use: none Drug Use: cocaine, marijuana - Immunizations Immunizations Up to Date: Yes Hx Pneumococcal Vaccination: No History of Influenza Vaccine: No Physical Exam - Physical Exam General Appearance: Present: wd/wn, alert, no apparent distress Respiratory: Present: no respiratory distress, normal breath sounds, no accessory muscle use, lungs clear Cardiovascular/Chest: Present: regular rate, rhythm, no murmur, normal peripheral pulses Extremity Exam: Present: normal inspection, normal range of motion, no edema Neurological Exam: Present: alert, oriented, no motor/sensory deficits, other - flat affect. Absent: normal mood/affect Skin Exam: Present: normal color, warm/dry ED Progress - Results and Orders Patient's Lab Results:: I have reviewed the patient's lab results. - Vital Signs Patient's Vital Signs:: I have reviewed the patient's vital signs. Vital Signs: Vital Signs 10/14/16 11:07 Temperature 37.1 C Pulse Rate 79 Respiratory 18 Rate Blood Pressure 150/95 O2 Sat by Pulse 94 Oximetry - EKG EKG: NSR, nonspecific ST T wave changes EKG read: Reviewed by me - Progress/Reassessment Chief Complaint: General Assessment Progress:: Unchanged Departure - Departure Clinical Impression: Acute hypokalemia Disposition: Home Follow Up Needed Condition: Good Instructions: Hypokalemia Additional Instructions: Contact your doctor and let them know your potassium was 2.8 today. You were given 40 mEq here and then a prescription for 20 mEq twice a day for 5 days. Make sure you take the potassium with food. Prescriptions: Potassium Chloride [K-Dur] 20 meq PO BID #10 tablet.sa
--- OUTSIDE RECORDS SUMMARY | 2016-10-14 11:27 | XMS REPORT | Continuity of Care Document ---
:1955 Demographics Address [address] [place] [address] Home Phone [phone] Home Phone [phone] Home Phone [phone] Home Phone [phone] Preferred Language Grenadian Marital Status Non- or Rastafarian Affiliation Unknown Race White or Ethnic Group Non- or Author Organization [employer] [place] [address] Care Team Providers Name Role Phone Provider, None Per Patient Primary Care Provider Unavailable Source Comments This disclosure is being made pursuant to the [employer] program and maynot contain all information available regarding this patient.[email or web address] Active Allergies and Adverse Reactions Allergen Noted [...]
--- OUTSIDE RECORDS SUMMARY | 2016-10-14 11:28 | XMS REPORT | Continuity of Care Document ---
:1955 Author Organization [facility] ([facility]) [place] [address] Phone [phone] Care Team Providers Name Role Phone SonyaCecilio Primary Care Provider [phone] Source Comments This disclosure is being made pursuant to the Care Everywhere program, applicable federal and state laws, and may not contain all informaitonavailable regarding this patient.[facility] ([facility]) Active Allergies and Adverse Reactions Allergen [...] Current Medications Prescription Sig. Disp. Refills Start End Date Status Date donepezil 10 mg Take 1 tablet 7 tablet 4 Active tablet (10 mg total) by 7 mouth at bedtime. lamoTRIgine 100 mg Take 1 tablet 7 tablet 4 Active tablet (100 mg total) 7 by mouth daily. pantoprazole 40 mg Take 1 tablet 7 tablet 4 Active EC tablet (40 mg total) by 7 mouth at bedtime. prazosin 2 mg Take 1 capsule 7 capsule 4 Active capsule (2 mg total) by 7 mouth at bedtime. SERTraline 100 mg Take 1 tablet 7 tablet 4 Active tablet (100 mg total) 7 by mouth daily. ziprasidone 60 mg Take 1 capsule 14 capsule 4 Active capsule (60 mg total) by 7 mouth 2 times daily with meals. ALPRAZolam 1 mg Take 1 tablet (1 12 tablet 2 Active tablet mg total) by 7 mouth 3 times daily. Patient receiving 4 days worth at a time. Not to be refilled early. First refill not to be filled before 17 and so on. pantoprazole 40 mg Take 40 mg by 10/06/19 Discontinued EC tablet mouth at 17 bedtime. PARoxetine PO Take 60 mg by 10/06/19 Discontinued mouth daily. 17 ALPRAZolam 1 mg Take 1 mg by 10/06/19 Discontinued tablet mouth 3 times 17 daily as needed. cyclobenzaprine 10 Take 1 Tab by 28 Tab 0 10/06/19 Discontinued mg tablet mouth every 6 4 17 hours as needed for Muscle spasms. Indications: MUSCLE SPASM sennosides 8.6 mg Take 1-2 Tabs by 30 Tab 1 10/06/19 Discontinued tablet mouth daily. 4 17 Indications: CONSTIPATION docusate 100 mg Take 1 Cap by 30 Cap 1 10/06/19 Discontinued capsule mouth daily. 4 17 Indications: CONSTIPATION HYDROcodone-acetamin Take 1-2 Tabs by 10 Tab 0 10/06/19 Discontinued ophen 5-325 mg per mouth every 6 5 17 tablet hours as needed for Pain azithromycin 250 mg Take 2 tabs on 6 Tab 0 10/06/19 Discontinued tablet the first day 5 17 and 1 tab per day after until finished. chlorhexidine 0.12 % Swish and 473 mL 0 10/06/19 Discontinued oral rinse expectorate 5 ml 5 17 twice daily as directed. Nothing by mouth for 30 minutes after. nitrofurantoin Take 1 capsule 8 capsule 0 10/10/19 (MACROBID) 100 mg (100 mg total) 7 17 capsule by mouth 2 times daily for 4 days. ALPRAZolam 1 mg Take 1 tablet (1 12 tablet 5 10/06/19 Discontinued tablet mg total) by 7 17 mouth 3 times daily. Patient receiving 4 days worth at a time. Not to be refilled early. First refill not to be filled before 10-09-16 and so on. Active Problems Problem Noted Date History of Borderline personality disorder 10/05/2016 Gastroesophageal reflux disease without esophagitis 10/05/2016 Cognitive disorder, Unspecified Type 10/05/2016 Overview: Patient reported she was given a diagnosis of dementia by a physician in [place], [place]. Cocaine abuse 10/03/2016 Diarrhea 01/14/2014 Back pain 01/14/2014 Spinous process [...] Resolved Problems Problem Noted Date Resolved Date Suicidal ideations 10/05/2016 10/05/2016 Suicide attempt by drug ingestion 10/03/2016 10/05/2016 Right flank pain 07/27/2013 08/03/2013 Nausea with vomiting 07/27/2013 08/03/2013 Anxiety 02/13/2012 06/22/2013 Emesis 02/13/2012 08/03/2013 Chest pain, unspecified 12/15/2011 08/03/2013 Abdominal pain, unspecified site 03/03/2006 11/22/2011 Urinary tract infection, site not specified 12/29/2000 11/22/2011 Anxiety state, unspecified 10/27/2000 06/22/2013 Vaginitis and vulvovaginitis, unspecified 09/09/1999 11/22/2011 Most Recent Encounters Date Type Specialty Providers Description 10/13/2016 Office Visit Psychiatry Taisha, Chief Comp: Patient KYLIE Chaidez Reported Reason For Visit 10/03/2016 - Hospital Encounter [facility] Dx: Depressive 10/05/2016 Inpatient - Adult MD Kvng disorder, not Corinna Sanz MD classified (Primary Dx) Immunizations Name Dates Previously Given Next Due Influenza, PF 03/03/2015 Influenza, quadrivalent PF 03/31/2016,02/27/2016 Tdap 09/10/2015 Tetanus Toxoid, adsorbed 05/23/2008 Social History Tobacco Use Types Packs/Day Years Used Date Current Some Day Smoker Cigarettes, E-cigarettes 0.25 12 Smokeless Tobacco: Never Used Tobacco Cessation:Counseling Given: Yes Comments:e-cigarettes Alcohol Use Drinks/Week oz/Week Comments No Last Filed Vital Signs Vital Sign Reading Time Taken Blood Pressure 125/90 10/05/2016 9:00 AM CDT Pulse 92 10/05/2016 9:00 AM CDT Temperature 36.2 C (97.2 F) 10/05/2016 9:00 AM CDT Respiratory Rate 18 10/05/2016 9:00 AM CDT Height 1.676 m (5' 6") 10/03/2016 7:30 AM CDT Weight 75.7 kg (166 lb 14.2 oz) 10/03/2016 7:30 AM CDT Body Mass Index 26.95 10/03/2016 7:30 AM CDT Oxygen Saturation 95% 03/06/2014 11:02 PM CDT Plan of Care Health Maintenance Due Date Last Done Comments Hepatitis B Vaccine (1 of 3 - Primary 1955 Series) MMR Vaccine 1974 Pneumococcal Vaccine (1 of 1 - 01/01/1976 PPSV23) Cervical Cancer Screening 1986 Mammogram 1996 Colonoscopy 2006 Lipid Disorder Screening 10/04/2021 10/04/2016, 12/16/2011, 03/04/2006 Td Vaccine 09/09/2025 09/10/2015, 05/23/2008 HCV Screening Completed 07/21/2007, 07/27/1999 Tdap Vaccine Completed 09/10/2015 Influenza Vaccine: Seasonal Completed 03/31/2016, 02/27/2016, 03/03/2015 Results from Last 3 Months LIPID PANEL (10/04/2016 9:24 AM) Component Value Range Specimen Type Fasting Cholesterol 194Comment: mg/dL Reference Range: Less than 200 mg/dL - desirable 200 - 240 mg/dL - increased risk Above 240 mg/dL - significant risk Triglycerides 132Comment: 0-150 mg/dL Reference Ranges: Normal:<150 mg/dL Borderline-high:150-199 mg/dL High: 200-499 mg/dL Very high: > pg=578 mg/dL HDL Cholesterol 48 >=41 mg/dL LDL - Calculated 120 <=130 mg/dL Non-HDL Cholesterol (Calc) 146 mg/dL Specimen Blood HEMOGLOBIN A1C (10/04/2016 9:24 AM) Component Value Range Hemoglobin A1c 4.8Comment: 4.8-6.0 % Glycemic Control Guidelines: Non-diabetic <6% Goal <7% Therapeutic Action >8% Estimated Average Glucose 91Comment: mg/dL The estimated average glucose (eAG) calculated from the HbA1c changed on 09/01.See Laboratory Bulletins in the Department of Pathology Laboratory Services Handbook for a full discussion.Not e that the new calculated glucose will now be lower.The A1c result is unchanged. Specimen Whole Blood ECG - EKG 12 LEAD (10/03/2016 3:09 PM) Component Value Range ECG SEVERITY - NORMAL ECG - VENT. RATE 52 bpm RR 1154 ms P-R INTERVAL 156 ms QRSD INTERVAL 92 ms QT INTERVAL 452 ms QTC INTERVAL 421 ms P AXIS 51 degrees QRS AXIS 35 degrees T WAVE AXIS 42 degrees REPORT SINUS RHYTHM Interpreting Physician: Delmar Lara MD
[2016-10-14 11:41] LABS: Hematocrit 41.6 % (37.0-47.0); Hemoglobin 14.5 gm/dL (12.5-16.0); Mean Cell Volume 87.8 fl (78-100); Mean Corpuscular Hemoglobin 30.6 pg (27-31); Mean Corpuscular Hgb Conc 34.9 g/dl (32-36); Mean Platelet Volume 10.4 fl (6.0-9.5); Neutrophil # 6.6 K/mm3 (1.3-6.0); Neutrophil % 77.7 % (42-75.0); Platelet Count 182 K/mm3 (150-450); Red Blood Count 4.74 M/mm3 (4.2-5.4); Red Cell Distribution Width 13.1 % (11.5-14.0); White Blood Count 8.5 K/mm3 (4.0-10.5)
[2016-10-14 12:00] LABS: Albumin * 3.9 gm/dl (3.4-5.0); Anion Gap 12.8 mmol/L (6.8-13.8); BUN/Creatinine Ratio 15.3 (9.0-21.6); Bilirubin, Total 0.5 mg/dL (0.0-1.1); Ca. Corrected For Albumin 9.3 mg/dL (8.4-10.2); Calcium * 9.5 mg/dL (7.9-10.9); Potassium 2.8 mmol/L (3.4-4.6); Total Protein 7.6 gm/dL (6.2-8.2)
[2016-10-14] MEDS ORDERED: POTASSIUM CHLORIDE 20 MEQ TABLET.SA PO ONE (12:15)
[2016-10-14] MEDS ORDERED: POTASSIUM CHLORIDE 20 MEQ TABLET.SA ONE (12:21)
[2016-10-14 12:56] VITALS: BP 152/86
== END 2016-10-14 12:58 | disposition home or self-care (01) ==
LOC: ER 10:46
DX: E87.6 Hypokalemia (principal); F41.9 Anxiety disorder, unspecified; F17.200 Nicotine dependence, unspecified, uncomplicated

== ENCOUNTER 2016-11-15 15:40 | Emergency (ER) | payer MEDICARE, OTHER ==
[2016-11-15] MEDS ORDERED: NORMAL SALINE 1,000 ML IV ONE (16:12)
[2016-11-15] MEDS ORDERED: DICYCLOMINE HCL 10 MG/ML AMPUL IM ONE ×2 (16:12→16:20)
[2016-11-15] MEDS ORDERED: ONDANSETRON HCL/PF 2 MG/ML VIAL IV ONE (16:12)
--- OUTSIDE RECORDS SUMMARY | 2016-11-15 16:13 | XMS REPORT | Continuity of Care Document ---
:1955 Demographics Address [address] [place] [address] Home Phone [phone] Home Phone [phone] Home Phone [phone] Home Phone [phone] Preferred Language [place] Korean Marital Status Non- or Lutheran Affiliation Unknown Race White or Ethnic Group Non- or Author Organization [facility] [place] [address] Care Team Providers Name Role Phone Provider, None Per Patient Primary Care Provider Unavailable Source Comments This disclosure is being made pursuant to the [employer] program and maynot contain all information available regarding this patient.[facility] Active Allergies and Adverse Reactions Allergen Noted [...]
--- NOTE | 2016-11-15 16:19 | ERNOTE ---
GI Bleeding/Rectal Pain ER Date of Service: 11/15/16 Time Seen by Provider: 11/15/16 16:05 Source: patient Exam Limitations: no limitations Immunizations: IMMUNIZATION HX Immunizations Up to Date Yes History of Influenza Vaccine No Hx Pneumococcal Vaccination No Allergies/Adverse Reactions: Allergies propranolol [Propranolol] Allergy (Severe, Verified 11/15/16 15:47) Anaphylaxis rash swelling gabapentin [From Neurontin] Allergy (Unknown, Verified 11/15/16 15:47) ampicillin [Ampicillin] Adverse Reaction (Intermediate, Verified 11/15/16 15:47) Itching, rash, swelling aspirin Adverse Reaction (Intermediate, Verified 11/15/16 15:47) Shortness of Breath NSAIDS (Non-Steroidal Anti-Inflamma Adverse Reaction (Intermediate, Verified 15:47) Shortness of Breath prochlorperazine maleate [From Compazine] Adverse Reaction (Intermediate, Verified 11/15/16 15:47) Itching, rash, swelling codeine [Codeine] Adverse Reaction (Mild, Verified 11/15/16 15:47) Itching, rash, swelling diphenhydramine HCl [From Benadryl] Adverse Reaction (Mild, Verified 11/15/16 15 :47) hyper doxycycline Adverse Reaction (Mild, Verified 11/15/16 15:47) Itching ketorolac tromethamine [From Toradol] Adverse Reaction (Mild, Verified 11/15/16 15:47) rash metoclopramide HCl [From Reglan] Adverse Reaction (Mild, Verified 11/15/16 15:47 ) Itching Penicillins Adverse Reaction (Mild, Verified 11/15/16 15:47) Itching prochlorperazine edisylate [From Compazine] Adverse Reaction (Mild, Verified 15:47) Itching, rash, swelling promethazine HCl [From Phenergan] Adverse Reaction (Mild, Verified 11/15/16 15: 47) Itching Sulfa (Sulfonamide Antibiotics) [Sulfa(Sulfonamide Antibiotics)] Adverse Reaction (Mild, Verified 11/15/16 15:47) Itching trazadone Allergy (Severe, Uncoded 10/14/16 11:10) Anaphylaxis Home Medications: HOME MEDICATIONS Alprazolam 1 mg PO BID 08/21/16 [Last Taken Unknown] Alprazolam 2 mg PO HS 10/02/16 [Last Taken Unknown] Lamotrigine [Lamictal] 100 mg PO DAILY 10/02/16 [Last Taken Unknown] Narrative: Pt. comes in with c/o nasuea, vomiting, and diarrhea for four days. Pt. states that her stools are black. Pt. denies any SOB, CP, fevers, recent illness or injury. Pt. denies any blood in her emesis, alleviating factors, aggravating factors, or prehospital treatment. Abdominal Pain: Present: diffuse Review of Systems - Review of Systems Constitutional: Present: weakness, fatigue, malaise. Absent: fever, chills EYE: Present: no symptoms reported ENT: Present: no symptoms reported. Absent: nose pain, nose congestion Respiratory: Present: no symptoms reported. Absent: shortness of breath, cough , wheezing Cardiology: Present: no symptoms reported. Absent: chest pain, palpitations, edema Gastrointestinal/Abdominal: Present: nausea, vomiting, diarrhea, abdominal pain - diffuse, eating less, drinking less Genitourinary: Present: decreased urinary output. Absent: frequency, pain, hematuria, discharge Musculoskeletal: Present: no symptoms reported. Absent: back pain, joint pain Skin: Present: no symptoms reported. Absent: rash, change in hair/nails Neurological: Present: no symptoms reported. Absent: headache, dizziness/light- headedness, numbness, tingling All Other Systems: All systems neg except as marked - Patient's Past Medical History Patient History - Medical: Anxiety, Chronic Pain, Depression, Migraines Patient History - Cardiac/Respiratory: No pertinent hx Patient History - Cancer: No Hx of Cancer Patient History - Surgical Procedures: Appendectomy, Cholecystectomy, , Hysterectomy, Other Patient History - Other: None LMP (females 10-50): Menopausal - Family History Father Family History - Medical: Diabetes Type 1, Other Family History - Cardiac/Respiratory: Asthma, Bronchitis, Cardiac Arrest, Coronary Heart Disease, COPD, Hypertension, Pneumonia - Social History Living Situations: home Abuse History: Hx of Substance Use Psych History: Psychiatric Hx, Hx of Anxiety, Hx of Depression, Hx of Suicide Attempt, Current tx/ever been on anti-depressants or anti-anxiety meds Does anyone smoke in the home?: Yes Smoking Status: Current every day smoker Alcohol Use: none Drug Use: cocaine, marijuana - Immunizations Immunizations Up to Date: Yes Hx Pneumococcal Vaccination: No History of Influenza Vaccine: No Physical Exam - Physical Exam General Appearance: Present: wd/wn, alert, no apparent distress Eye Exam: Normal inspection: bilateral, PERRL: bilateral, EOMI: bilateral Ears, Nose, Throat: Present: normal ENT inspection, normal pharynx Neck: Present: normal inspection, nontender. Absent: lymphadenopathy (R), lymphadenopathy (L) Respiratory: Present: no respiratory distress, normal breath sounds, no accessory muscle use, chest nontender, lungs clear Cardiovascular/Chest: Present: regular rate, rhythm, no murmur, normal peripheral pulses Gastrointestinal/Abdominal: Present: nondistended, soft, no organomegaly, tenderness - diffuse. Absent: McBurney sign, Obturator sign, Faith sign, mass , hernia, hepatomegaly Back Exam: Present: normal inspection, normal range of motion, no CVA tenderness , no vertebral tenderness Neurological Exam: Present: alert, oriented, no motor/sensory deficits, other - forgetful slow to respond appears under the influence Skin Exam: Present: warm/dry, pallor ED Progress - Date and Time Seen: Date and Time: 11/15/16 17:53 Pt. requested to leave without medications or tfurther testing. Feel that this is ok as pt. likely has acute gastroenteritis. Pt. states that she has bentyl and zofran at home. - Vital Signs Patient's Vital Signs:: I have reviewed the patient's vital signs. Vital Signs: Vital Signs 11/15/16 15:44 Temperature 36.8 C Pulse Rate 80 Respiratory 17 Rate Blood Pressure 135/63 O2 Sat by Pulse 98 Oximetry - Progress/Reassessment Chief Complaint: GI Bleed Departure Clinical Impression: Acute gastroenteritis - Departure Disposition: Home self-care Condition: Good Instructions: Rehydration, Adult Additional Instructions: Please follow up with primary provider in 2-3 days.
[2016-11-15 17:01] LABS: Hematocrit 43.4 % (37.0-47.0); Hemoglobin 14.9 gm/dL (12.5-16.0); Mean Cell Volume 87.7 fl (78-100); Mean Corpuscular Hemoglobin 30.1 pg (27-31); Mean Corpuscular Hgb Conc 34.3 g/dl (32-36); Mean Platelet Volume 11.1 fl (6.0-9.5); Neutrophil % 64.1 % (42-75.0); Platelet Count 126 K/mm3 (150-450); Red Blood Count 4.95 M/mm3 (4.2-5.4); Red Cell Distribution Width 12.6 % (11.5-14.0); White Blood Count 6.3 K/mm3 (4.0-10.5)
[2016-11-15] MEDS ORDERED: ONDANSETRON 4 MG TAB.RAPDIS PO ONE (17:20)
[2016-11-15] MEDS ORDERED: ONDANSETRON 4 MG TAB.RAPDIS ONE (17:24)
[2016-11-15 17:31] LABS: Albumin * 3.8 gm/dl (3.4-5.0); Bilirubin, Total 0.5 mg/dL (0.0-1.1); Ca. Corrected For Albumin 9.4 mg/dL (8.4-10.2); Calcium * 9.6 mg/dL (7.9-10.9); Carbon Dioxide 25.8 mmol/L (24-32.6); Potassium 3.8 mmol/L (3.4-4.6); Total Protein 7.1 gm/dL (6.2-8.2)
[2016-11-15 17:44] VITALS: BP 127/56
== END 2016-11-15 16:48 | disposition home or self-care (01) ==
LOC: ER 15:40
DX: K52.9 Noninfective gastroenteritis and colitis, unspecified (principal); F17.200 Nicotine dependence, unspecified, uncomplicated

== ENCOUNTER 2016-11-28 15:02 | Emergency (ER) | payer MEDICARE, OTHER ==
--- OUTSIDE RECORDS SUMMARY | 2016-11-28 15:29 | XMS REPORT | Continuity of Care Document ---
:1955 Demographics Address [address] [place] [address] Home Phone [phone] Home Phone [phone] Home Phone [phone] Home Phone [phone] Preferred Language Estonian Marital Status Non- or Religion Affiliation Unknown Race White or Ethnic Group Non- or Author Organization [facility] [employer] [place] [address] Care Team Providers Name Role Phone Provider, None Per Patient Primary Care Provider Unavailable Source Comments This disclosure is being made pursuant to the [employer] program and maynot contain all information available regarding this patient.[employer] Active Allergies and Adverse Reactions Allergen [...] from Last 3 Months Not on file Insurance Payer Benefit Plan / Subscriber ID Type Phone Address Group MEDICARE MEDICARE A AND B [id number] [phone] [address] [place] [address] MEDICAID MEDICAID [place] PLAN [id number] [phone] [address] [place] [address] [facility] [id number] Managed [phone] [address] MEDICAID [place], [place] [id number] Guarantor Name Account Type Relation to Date of Phone Billing Patient Address CHAPARRITAELIZABETH Personal/Family Self 1955 Home: [address] [phone] [place] [address] IZZY LAO Personal/Family Self 1955 Home: [address] [phone] [place] [address] ELIZABETH CHEATHAM Personal/Family Self 1955 Home: [address] [phone] [place] [address]
[2016-11-28] MEDS ORDERED: ASPIRIN 81 MG TAB.CHEW PO ONE (15:30)
[2016-11-28 15:48] LABS: Hemoglobin 15.4 gm/dL (12.5-16.0); Mean Cell Volume 86.4 fl (78-100); Mean Corpuscular Hemoglobin 30.3 pg (27-31); Mean Platelet Volume 10.8 fl (6.0-9.5); Neutrophil # 5.3 K/mm3 (1.3-6.0); Neutrophil % 71.3 % (42-75.0); Platelet Count 183 K/mm3 (150-450); Red Blood Count 5.09 M/mm3 (4.2-5.4); Red Cell Distribution Width 12.8 % (11.5-14.0); White Blood Count 7.5 K/mm3 (4.0-10.5)
[2016-11-28] MEDS ORDERED: LORazepam 2 MG/ML DISP.SYRIN IM ONE (15:53)
[2016-11-28] MEDS ORDERED: LORazepam 2 MG/ML DISP.SYRIN ONE (15:57)
[2016-11-28 15:59] LABS: Prothrombin Time (Patient) 11.4 Seconds (9.4-11.4)
[2016-11-28 16:00] LABS: INR 1.1 INR (0.90-1.10); Partial Thrombolplastin Time 22.6 Seconds (24-32)
--- NOTE | 2016-11-28 16:01 | ERNOTE ---
Chest Pain/Cardiac HPI Date of Service: 11/28/16 Chief Complaint: Chest Pain Time Seen by Provider: 11/28/16 15:23 Source: patient Exam Limitations: no limitations Immunizations: IMMUNIZATION HX Immunizations Up to Date Yes History of Influenza Vaccine Yes Hx Pneumococcal Vaccination No Allergies/Adverse Reactions: Allergies propranolol [Propranolol] Allergy (Severe, Verified 11/28/16 15:17) Anaphylaxis rash swelling gabapentin [From Neurontin] Allergy (Unknown, Verified 11/28/16 15:17) ampicillin [Ampicillin] Adverse Reaction (Intermediate, Verified 11/28/16 15:17) Itching, rash, swelling aspirin Adverse Reaction (Intermediate, Verified 11/28/16 15:17) Shortness of Breath NSAIDS (Non-Steroidal Anti-Inflamma Adverse Reaction (Intermediate, Verified 02/06 15:17) Shortness of Breath prochlorperazine maleate [From Compazine] Adverse Reaction (Intermediate, Verified 11/28/16 15:17) Itching, rash, swelling codeine [Codeine] Adverse Reaction (Mild, Verified 11/28/16 15:17) Itching, rash, swelling diphenhydramine HCl [From Benadryl] Adverse Reaction (Mild, Verified 11/28/16 15 :17) hyper doxycycline Adverse Reaction (Mild, Verified 11/28/16 15:17) Itching ketorolac tromethamine [From Toradol] Adverse Reaction (Mild, Verified 11/28/16 15:17) rash metoclopramide HCl [From Reglan] Adverse Reaction (Mild, Verified 11/28/16 15:17 ) Itching Penicillins Adverse Reaction (Mild, Verified 11/28/16 15:17) Itching prochlorperazine edisylate [From Compazine] Adverse Reaction (Mild, Verified 02/06 15:17) Itching, rash, swelling promethazine HCl [From Phenergan] Adverse Reaction (Mild, Verified 11/28/16 15: 17) Itching Sulfa (Sulfonamide Antibiotics) [Sulfa(Sulfonamide Antibiotics)] Adverse Reaction (Mild, Verified 11/28/16 15:17) Itching trazadone Allergy (Severe, Uncoded 11/28/16 15:17) Anaphylaxis Home Medications: HOME MEDICATIONS Alprazolam 1 mg PO BID 08/21/16 [Last Taken Unknown] Alprazolam 2 mg PO HS 10/02/16 [Last Taken Unknown] Lamotrigine [Lamictal] 100 mg PO DAILY 10/02/16 [Last Taken Unknown] Escitalopram Oxalate [Lexapro] 10 mg PO DAILY 11/28/16 [Last Taken Unknown] hydrOXYzine PAMOATE [Vistaril] 50 mg PO Q4H PRN #30 cap 11/28/16 [Last Taken Unknown] Narrative: Pt. comes in with c/o chest pain that began 15 minutes prior to arrival. Pt. denies any SOB, NVD, fever, recent illness, but does state that she has had palpitations, anxiety, and diaphoresis. Pt. denies any prehospital treatment and that she was ambulating outside when the pain began. Review of Systems - Review of Systems Constitutional: Present: no symptoms reported. Absent: recent illness, fever, chills, weakness, fatigue, malaise EYE: Present: no symptoms reported ENT: Present: no symptoms reported Respiratory: Present: no symptoms reported. Absent: shortness of breath, cough , wheezing Cardiology: Present: chest pain, palpitations. Absent: edema Gastrointestinal/Abdominal: Present: no symptoms reported. Absent: nausea, vomiting, diarrhea Genitourinary: Present: no symptoms reported Musculoskeletal: Present: no symptoms reported. Absent: back pain, joint pain Skin: Present: no symptoms reported Neurological: Present: anxiety, tingling - in hands All Other Systems: All systems neg except as marked - Patient's Past Medical History Patient History - Medical: Anxiety, Chronic Pain, Depression, Migraines Patient History - Cardiac/Respiratory: No pertinent hx Patient History - Cancer: No Hx of Cancer Patient History - Surgical Procedures: Appendectomy, Cholecystectomy, , Hysterectomy, Other Patient History - Other: None - Family History Father Family History - Medical: Diabetes Type 1, Other Family History - Cardiac/Respiratory: Asthma, Bronchitis, Cardiac Arrest, Coronary Heart Disease, COPD, Hypertension, Pneumonia - Social History Living Situations: home Abuse History: Hx of Substance Use Psych History: Psychiatric Hx, Hx of Anxiety, Hx of Depression, Hx of Suicide Attempt, Current tx/ever been on anti-depressants or anti-anxiety meds Does anyone smoke in the home?: Yes Smoking Status: Former smoker Alcohol Use: none Drug Use: cocaine, marijuana - Immunizations Immunizations Up to Date: Yes Hx Pneumococcal Vaccination: No History of Influenza Vaccine: Yes Physical Exam - Physical Exam General Appearance: Present: wd/wn, alert, no apparent distress Eye Exam: Normal inspection: bilateral, PERRL: bilateral, EOMI: bilateral Ears, Nose, Throat: Present: normal ENT inspection, normal pharynx Neck: Present: normal inspection, nontender. Absent: lymphadenopathy (R), lymphadenopathy (L) Respiratory: Present: no respiratory distress, normal breath sounds, no accessory muscle use, chest nontender, lungs clear Cardiovascular/Chest: Present: no murmur, normal peripheral pulses, tachycardia Gastrointestinal/Abdominal: Present: normal bowel sounds, nontender, nondistended, soft, no organomegaly Back Exam: Present: normal inspection, normal range of motion, no CVA tenderness , no vertebral tenderness Extremity Exam: Present: normal inspection, non-tender, normal range of motion, no edema Neurological Exam: Present: alert, oriented, no motor/sensory deficits, other - anxious Skin Exam: Present: normal color, warm/dry. Absent: pallor, skin rash ED Progress - Date and Time Seen: Date and Time: 11/28/16 16:54 Pt. drank 1 liter water and was given 40meq potassium will recheck in 2-3 days on outpt. and have her follow up with pcp. - Results and Orders Patient's Lab Results:: I have reviewed the patient's lab results. - Vital Signs Patient's Vital Signs:: I have reviewed the patient's vital signs. Vital Signs: Vital Signs 11/28/16 11/28/16 15:12 15:20 Temperature 36.8 C Pulse Rate 65 63 Respiratory 15 19 Rate Blood Pressure 152/92 O2 Sat by Pulse 96 97 Oximetry - EKG EKG: NSR EKG read: Reviewed by me EKG Comments: interp by Dr Howell - X-Ray X-Ray #1 X-Ray: chest Interpretation: Interp. by me X-ray Comments: no obvious acute cardiopulmonary process. - Progress/Reassessment Chief Complaint: Chest Pain Progress:: Pain free at discharge Departure - Departure Clinical Impression: Anxiety Disposition: Home self-care Condition: Good Instructions: Panic Attacks, [id number] Additional Instructions: Please follow up with your psychiatrist for medication changes. Please return here in 2-3 days for follow up potassium level and follow up with primary provider in same time frame to discuss results. Prescriptions: hydrOXYzine PAMOATE [Vistaril] 50 mg PO Q4H PRN #30 cap PRN Reason: Anxiety
[2016-11-28 16:06] LABS: ALT 23 U/L (19-67); AST 20 U/L (0-48); Albumin * 3.8 gm/dl (3.4-5.0); Alkaline Phosphatase * 79 U/L (50-170); BUN/Creatinine Ratio 7.1 (9.0-21.6); Bilirubin, Total 0.4 mg/dL (0.0-1.1); Blood Urea Nitrogen 8 mg/dL (3-23); Ca. Corrected For Albumin 9.2 mg/dL (8.4-10.2); Calcium * 9.4 mg/dL (7.9-10.9); Carbon Dioxide 29.8 mmol/L (24-32.6); Chloride 106 mmol/L (97-106); Glucose * 115 mg/dL (70-110); Potassium 2.8 mmol/L (3.4-4.6); Sodium 144 mmol/L (132-142); Total Protein 7.4 gm/dL (6.2-8.2); Troponin I Less than 0.017 ng/ml (0.00-0.10)
[2016-11-28] MEDS ORDERED: POTASSIUM CHLORIDE 20 MEQ TABLET.SA PO ONE (16:19)
[2016-11-28] MEDS ORDERED: POTASSIUM CHLORIDE 20 MEQ TABLET.SA ONE (16:22)
[2016-11-28 16:55] VITALS: BP 131/81
[2016-11-28] MEDS ORDERED: hydrOXYzine PAMOATE 25 MG CAPSULE PO ONE (17:10)
[2016-11-28] MEDS ORDERED: hydrOXYzine PAMOATE 25 MG CAPSULE ONE (17:37)
== END 2016-11-28 17:40 | disposition home or self-care (01) ==
LOC: ER 15:02
DX: R07.89 Other chest pain (principal); F41.9 Anxiety disorder, unspecified

== ENCOUNTER 2016-12-01 12:35 | Emergency (ER) | payer MEDICARE, OTHER ==
[2016-12-01 12:44] VITALS: BP 126/93
[2016-12-01] MEDS ORDERED: LORazepam 2 MG/ML DISP.SYRIN IM ONE (13:32)
[2016-12-01] MEDS ORDERED: LORazepam 2 MG/ML DISP.SYRIN ONE (13:33)
--- OUTSIDE RECORDS SUMMARY | 2016-12-01 13:34 | XMS REPORT | Continuity of Care Document ---
:1955 Demographics Address [address] [place] [address] Home Phone [phone] Home Phone [phone] Home Phone [phone] Home Phone [phone] Preferred Language Czech Marital Status Non- or Islam Affiliation Unknown Race White or Ethnic Group Non- or Author Organization [employer] [place] [address] Care Team Providers Name Role Phone Provider, None Per Patient Primary Care Provider Unavailable Source Comments This disclosure is being made pursuant to the [employer] program and maynot contain all information available regarding this patient.[employer] Active Allergies and Adverse Reactions Allergen Noted [...] Address Group MEDICARE MEDICARE A AND B [id number] [phone] [address] [place] [address] MEDICAID MEDICAID [place] PLAN [id number] [phone] [address] [place] [address] [facility] [id number] Managed [phone] [address] MEDICAID [place], [place] [id number] Guarantor Name Account Type Relation to Date of Phone Billing Patient Address CHAPARRITAELIZABETH Personal/Family Self 1955 Home: [address] [phone] [place] [address] IZZY LAO Personal/Family Self 1955 [address]: [address] [phone] [place] [address] ELIZABETH CHEATHAM Personal/Family Self 1955 [address]: [address] [phone] [place] [address]
--- NOTE | 2016-12-01 13:38 | ERNOTE ---
Psychological HPI - General Chief Complaint: Psychiatric Problem Source: Reports: patient Exam Limitations: Reports: no limitations - Immun/Allergies/Home Medications Allergies/Adverse Reactions: Allergies propranolol [Propranolol] Allergy (Severe, Verified 12/01/16 12:44) Anaphylaxis rash swelling gabapentin [From Neurontin] Allergy (Unknown, Verified 12/01/16 12:44) ampicillin [Ampicillin] Adverse Reaction (Intermediate, Verified 12/01/16 12:44) Itching, rash, swelling aspirin Adverse Reaction (Intermediate, Verified 12/01/16 12:44) Shortness of Breath NSAIDS (Non-Steroidal Anti-Inflamma Adverse Reaction (Intermediate, Verified 05/08 12:44) Shortness of Breath prochlorperazine maleate [From Compazine] Adverse Reaction (Intermediate, Verified 12/01/16 12:44) Itching, rash, swelling codeine [Codeine] Adverse Reaction (Mild, Verified 12/01/16 12:44) Itching, rash, swelling diphenhydramine HCl [From Benadryl] Adverse Reaction (Mild, Verified 12/01/16 12 :44) hyper doxycycline Adverse Reaction (Mild, Verified 12/01/16 12:44) Itching ketorolac tromethamine [From Toradol] Adverse Reaction (Mild, Verified 12/01/16 12:44) rash metoclopramide HCl [From Reglan] Adverse Reaction (Mild, Verified 12/01/16 12:44 ) Itching Penicillins Adverse Reaction (Mild, Verified 12/01/16 12:44) Itching prochlorperazine edisylate [From Compazine] Adverse Reaction (Mild, Verified 05/08 12:44) Itching, rash, swelling promethazine HCl [From Phenergan] Adverse Reaction (Mild, Verified 12/01/16 12: 44) Itching Sulfa (Sulfonamide Antibiotics) [Sulfa(Sulfonamide Antibiotics)] Adverse Reaction (Mild, Verified 12/01/16 12:44) Itching trazadone Allergy (Severe, Uncoded 12/01/16 12:44) Anaphylaxis Home Medications: HOME MEDICATIONS Alprazolam 2 mg PO HS 10/02/16 [Last Taken Unknown] Lamotrigine [Lamictal] 100 mg PO DAILY 10/02/16 [Last Taken Unknown] Escitalopram Oxalate [Lexapro] 10 mg PO DAILY 11/28/16 [Last Taken Unknown] hydrOXYzine PAMOATE [Vistaril] 50 mg PO Q4H PRN #30 cap 11/28/16 [Last Taken Unknown] Alprazolam 1 mg PO BID #10 tablet 12/01/16 [Last Taken Unknown] Pantoprazole Sodium [Protonix] 40 mg PO DAILY 12/01/16 [Last Taken Unknown] - History of Present Illness Narrative: Patient has a long history of psychiatric problems including depression and anxiety. She denies any current stressors, is back living with her daughter and a friend in town as living in the housing with [facility] didn't work out as she had troubles with her room mate. She gets on well with her daughter and friend, he son is still in custodial, her dentures are still lost and she has not been able to afford new ones but she manages to eat okay without them. She has recurrent thoughts of giving up, thinking of taking some of her old pills from left over prior prescription. She is scheduled to see her psychiatrist next week but ran out of alprazolam a couple of days ago and is feeling very anxious which is what bothers her the most. Time Seen by Provider: 12/01/16 13:21 Review of Systems - Review of Systems Constitutional: Absent: recent illness, fever EYE: Absent: vision changes ENT: Absent: sore throat Respiratory: Absent: shortness of breath Cardiology: Absent: chest pain Gastrointestinal/Abdominal: Absent: nausea, abdominal pain Genitourinary: Present: no symptoms reported Neurological: Absent: headache - Patient's Past Medical History Patient History - Medical: Anxiety, Chronic Pain, Depression, Migraines Patient History - Cardiac/Respiratory: No pertinent hx Patient History - Cancer: No Hx of Cancer Patient History - Surgical Procedures: Appendectomy, Cholecystectomy, , Hysterectomy, Other Patient History - Other: None - Family History Father Family History - Medical: Diabetes Type 1, Other Family History - Cardiac/Respiratory: Asthma, Bronchitis, Cardiac Arrest, Coronary Heart Disease, COPD, Hypertension, Pneumonia - Social History Living Situations: home Abuse History: Hx of Substance Use Psych History: Psychiatric Hx, Hx of Anxiety, Hx of Depression, Hx of Suicide Attempt, Current tx/ever been on anti-depressants or anti-anxiety meds Does anyone smoke in the home?: Yes Smoking Status: Former smoker Alcohol Use: none Drug Use: cocaine, marijuana - Immunizations Immunizations Up to Date: Yes Hx Pneumococcal Vaccination: No History of Influenza Vaccine: Yes Physical Exam - Physical Exam General Appearance: Present: wd/wn, alert, no apparent distress, anxious Ears, Nose, Throat: Present: normal pharynx Respiratory: Present: no respiratory distress, normal breath sounds, no accessory muscle use, lungs clear Cardiovascular/Chest: Present: regular rate, rhythm, no murmur Gastrointestinal/Abdominal: Present: nontender, nondistended, soft Neurological Exam: Present: alert, oriented, other - depressed mood Skin Exam: Present: normal color, warm/dry ED Progress - Vital Signs Patient's Vital Signs:: I have reviewed the patient's vital signs. Vital Signs: Vital Signs 12/01/16 12:39 Temperature 36.3 C L Pulse Rate 78 Respiratory 18 Rate Blood Pressure 126/93 O2 Sat by Pulse 98 Oximetry - Progress/Reassessment Chief Complaint: Psychiatric Problem Progress Note-Subjective: 12/01/16 13:30 patient states that if she can gets something for anxiety she thinks that she should be okay till she sees her psychiatrist, discussed with [facility] worker that is present to discard all old medication that she is not currently taking Departure Clinical Impression: Anxiety - Departure Disposition: Home self-care Condition: Fair Instructions: Panic Attacks, [id number] Additional Instructions: follow up with your psychiatrist next week as scheduled Prescriptions: Alprazolam 1 mg PO BID #10 tablet
== END 2016-12-01 13:45 | disposition home or self-care (01) ==
LOC: ER 12:35
DX: R45.851 Suicidal ideations (principal); F41.8 Other specified anxiety disorders

== ENCOUNTER 2016-12-17 11:43 | Emergency (ER) | payer MEDICARE ==
[2016-12-17 11:49] VITALS: BP 140/78
[2016-12-17] MEDS ORDERED: NALBUPHINE HCL 20 MG/ML AMPUL IM ONE (11:52)
[2016-12-17] MEDS ORDERED: ONDANSETRON HCL/PF 2 MG/ML VIAL IV ONE (11:52)
--- NOTE | 2016-12-17 11:54 | ERNOTE ---
Headache ER HPI - Narrative Date of Service: 12/17/16 - General Presenting Symptoms: headache, "migraine" Time Seen by Provider: 12/17/16 11:46 Source: patient - Immun/Allergies/Home Medications Immunizations: IMMUNIZATION HX Immunizations Up to Date Yes History of Influenza Vaccine Yes Hx Pneumococcal Vaccination No Allergies/Adverse Reactions: Allergies propranolol [Propranolol] Allergy (Severe, Verified 12/17/16 11:50) Anaphylaxis rash swelling gabapentin [From Neurontin] Allergy (Unknown, Verified 12/17/16 11:50) ampicillin [Ampicillin] Adverse Reaction (Intermediate, Verified 12/17/16 11:50) Itching, rash, swelling aspirin Adverse Reaction (Intermediate, Verified 12/17/16 11:50) Shortness of Breath NSAIDS (Non-Steroidal Anti-Inflamma Adverse Reaction (Intermediate, Verified 11:50) Shortness of Breath prochlorperazine maleate [From Compazine] Adverse Reaction (Intermediate, Verified 12/17/16 11:50) Itching, rash, swelling codeine [Codeine] Adverse Reaction (Mild, Verified 12/17/16 11:50) Itching, rash, swelling diphenhydramine HCl [From Benadryl] Adverse Reaction (Mild, Verified 12/17/16 11 :50) hyper doxycycline Adverse Reaction (Mild, Verified 12/17/16 11:50) Itching ketorolac tromethamine [From Toradol] Adverse Reaction (Mild, Verified 12/17/16 11:50) rash metoclopramide HCl [From Reglan] Adverse Reaction (Mild, Verified 12/17/16 11:50 ) Itching Penicillins Adverse Reaction (Mild, Verified 12/17/16 11:50) Itching prochlorperazine edisylate [From Compazine] Adverse Reaction (Mild, Verified 11:50) Itching, rash, swelling promethazine HCl [From Phenergan] Adverse Reaction (Mild, Verified 12/17/16 11: 50) Itching Sulfa (Sulfonamide Antibiotics) [Sulfa(Sulfonamide Antibiotics)] Adverse Reaction (Mild, Verified 12/17/16 11:50) Itching trazadone Allergy (Severe, Uncoded 12/17/16 11:50) Anaphylaxis Home Medications: HOME MEDICATIONS Alprazolam 2 mg PO HS 10/02/16 [Last Taken Unknown] Lamotrigine [Lamictal] 100 mg PO DAILY 10/02/16 [Last Taken Unknown] Escitalopram Oxalate [Lexapro] 10 mg PO DAILY 11/28/16 [Last Taken Unknown] hydrOXYzine PAMOATE [Vistaril] 50 mg PO Q4H PRN #30 cap 11/28/16 [Last Taken Unknown] Alprazolam 1 mg PO BID #10 tablet 12/01/16 [Last Taken Unknown] Pantoprazole Sodium [Protonix] 40 mg PO DAILY 12/01/16 [Last Taken Unknown] - Pain Pain Score: 4 - History of Present Illness Narrative: 60-year-old feel female presents to the emergency room for headache for 2 days. Patient states that she has taken her headache medicine at home and she has not had relief. Patient states that she has as has had emesis for one day and is nauseated. Date (Duration): 12/17/16 Timing of Headache: abrupt Context Headache: Present: new onset Quality: Present: achy Severity Maximum: Present: mild Severity-Currently: Present: mild Headache frequency: Present: chronic headaches, similar to previous headache Modifying Factors - (Improves): Reports: rest Modifying Factors - (Worsens): Reports: movement Associated Symptoms: Reports: denies symptoms Exacerbated by:: Reports: movement Prior Treament: Reports: recently seen, similar symptoms before Review of Systems - Review of Systems Constitutional: Present: no symptoms reported EYE: Present: no symptoms reported ENT: Present: no symptoms reported Respiratory: Present: no symptoms reported Cardiology: Present: no symptoms reported Gastrointestinal/Abdominal: Present: See HPI, nausea, vomiting Genitourinary: Present: no symptoms reported Musculoskeletal: Present: no symptoms reported Skin: Present: no symptoms reported Neurological: Present: See HPI, headache Endocrine: Present: no symptoms reported Hematologic/Lymphatic: Present: no symptoms reported Psych: Present: no symptoms reported All Other Systems: All systems neg except as marked - Patient's Past Medical History Patient History - Medical: Anxiety, Chronic Pain, Depression, Migraines Patient History - Cardiac/Respiratory: No pertinent hx Patient History - Cancer: No Hx of Cancer Patient History - Surgical Procedures: Appendectomy, Cholecystectomy, , Hysterectomy, Other Patient History - Other: None LMP (females 10-50): Menopausal - Family History Father Family History - Medical: Diabetes Type 1, Other Family History - Cardiac/Respiratory: Asthma, Bronchitis, Cardiac Arrest, Coronary Heart Disease, COPD, Hypertension, Pneumonia - Social History Living Situations: other Abuse History: Hx of Substance Use, Hx -Substance Use Tx, Hx-Community Resource Use Psych History: Psychiatric Hx, Hx of Anxiety, Hx of Depression, Hx of Suicide Attempt, Current tx/ever been on anti-depressants or anti-anxiety meds Does anyone smoke in the home?: Yes Alcohol Use: none Drug Use: benzodiazepine, cocaine, marijuana, other - Immunizations Immunizations Up to Date: Yes Hx Pneumococcal Vaccination: No History of Influenza Vaccine: Yes Physical Exam - Physical Exam General Appearance: Present: wd/wn, alert, no apparent distress Head Exam: Present: normal inspection, no evidence of injury Eye Exam: Normal inspection: bilateral Ears, Nose, Throat: Present: normal ENT inspection, normal pharynx Neck: Present: normal inspection, nontender, supple, full range of motion Respiratory: Present: no respiratory distress, normal breath sounds, no accessory muscle use, chest nontender, lungs clear Cardiovascular/Chest: Present: regular rate, rhythm, no murmur, normal peripheral pulses Gastrointestinal/Abdominal: Present: normal bowel sounds, nontender, nondistended, soft, no organomegaly Extremity Exam: Present: normal inspection, non-tender, normal range of motion, no edema Neurological Exam: Present: oriented, normal mood/affect, no motor/sensory deficits Skin Exam: Present: normal color, warm/dry Lymphatic Exam: Present: no adenopathy ED Progress - Vital Signs Patient's Vital Signs:: I have reviewed the patient's vital signs. Vital Signs: Vital Signs 12/17/16 11:46 Temperature 36.6 C Pulse Rate 68 Respiratory 17 Rate Blood Pressure 140/78 O2 Sat by Pulse 98 Oximetry - Progress/Reassessment Chief Complaint: Headache Progress:: Improved Plan - Plan Plan: patient states that her ORTEGA has improved after her medications and she is nolonger nauseated Departure Clinical Impression: Headache, chronic migraine without aura Qualifiers: Status migrainosus presence: without status migrainosus Intractability: not intractable Qualified Code(s): G43.709 - Chronic migraine without aura, not intractable, without status migrainosus - Departure Disposition: Home Follow Up Needed Condition: Stable Instructions: Nausea, Adult, Migraine Headache, [id number] Additional Instructions: Continue previous home medications. Follow up with your provider at the migraine headache clinic use. Return to emergency room if symptoms return or persist. Follow-up with her primary care provider in the next 2-3 days if necessary continue to drink plenty fluids to keep hydrated.
--- OUTSIDE RECORDS SUMMARY | 2016-12-17 11:56 | XMS REPORT | Clinical Summary ---
:1955 Demographics Address [address] [place] [address] Home Phone Home Phone Home Phone Home Phone Preferred Language Uzbek Marital Status Not or Yazidi Affiliation Unknown Race White Ethnic Group Not or Author Organization [employer] [place] [address] Care Team Providers Name Role Phone Unavailable Primary Care Provider Unavailable Source Comments This disclosure is being made pursuant to the [employer] program and maynot contain all information available regarding this patient.[employer] Allergies Active Allergy Reactions Severity Noted Date Comments Allopurinol Rash Low 12/21/2011 Codeine Rash Low 12/21/2011 Compazine Other (See Comments) 02/20/2012 Divalproex Sodium Rash Low 12/21/2011 Doxycycline Rash Low 12/21/2011 Erythromycin Rash Low 12/21/2011 Metoclopramide Hcl Rash Low 12/21/2011 Gabapentin Hallucinations Medium 01/11/2013 Nsaids Other (See Comments) 12/21/2011 Liver disease Nsaids Rash Low 03/29/2012 Penicillins Anaphylaxis High 03/29/2012 Penicillins Rash Low 12/21/2011 Promethazine Hcl Rash Low 12/21/2011 Propranolol Anaphylaxis High 12/21/2011 Sulfa Antibiotics Rash Low 12/21/2011 Sulfa Antibiotics Rash Low 03/29/2012 Tramadol Rash Low 12/21/2011 Trazodone Anaphylaxis High 12/21/2011 Trazodone Anaphylaxis High 03/29/2012 Current Medications Be aware that medications may [...] Given Next Due Tetanus Toxoid, Absorbed 05/23/2008 Family History Medical History Relation Name Comments Diabetes Father Heart disease Father High cholesterol Father Hypertension Father Diabetes Mother Heart disease Mother High cholesterol Mother Hypertension Mother Other Other Bipolar disorder - All Family: Noted on 2011-05-04 14:07:01 Other Other Depressive disorder - All Family: Noted on 2011-05-04 14:07:01 Other Other Endometriosis - All Family: Noted on 2011-05-04 14:07:01 Other Other Skin cancer - All Family: Noted on 2011-05-04 14:07:01 Other Other Heart Disease - Father: Noted on Other Other Heart Disease - Mother: Noted on Relation Name Status Comments Father Mother Alive Other Other Other Other Other Other Social History Tobacco Use Types Packs/Day Years Used Date Current Every Day Smoker Quit: 08/04/2013 Smokeless Tobacco: Never Used Tobacco Cessation:Ready to Quit: Yes Alcohol Use Drinks/Week oz/Week Comments No Alcoholic Drinks/day: History of Alcohol Use Denied Sex Assigned at Date Recorded Not on file Last Filed Vital Signs Vital Sign Reading Time Taken Blood Pressure 143/101 09/21/2015 4:35 PM CDT Pulse 93 09/21/2015 4:35 PM CDT Temperature 37.1 C (98.8 F) 09/21/2015 4:44 PM CDT Respiratory Rate 20 09/21/2015 4:35 PM CDT Oxygen Saturation 100% 09/21/2015 4:35 PM CDT Inhaled Oxygen Concentration - - Weight 79.4 kg (175 lb) 09/21/2015 4:35 PM CDT Height 167.6 cm (5' 6") 09/21/2015 4:35 PM CDT Body Mass Index 28.25 09/21/2015 4:35 PM CDT Plan of Treatment Health Maintenance Due Date Last Done Comments Mammogram 1955 Hepatitis C Screening 1974 Pneumococcal Medium Risk 19-64 yo (1 of 1 - PPSV23) 01/01/1976 Tetanus/Pertussis (1 - Tdap) 01/01/1976 Pap Smear 1977 Colonoscopy 2006 Well Adult Visit 2006 INFLUENZA IMMUNIZATION (#1) 2017 Results Not on filefrom Last 3 Months Insurance Payer Benefit Plan / Subscriber ID Type Phone Address Group MEDICARE MEDICARE A AND B [id number] [phone] [address] [place] [address] MEDICAID MEDICAID [place]AN [id number] [phone] [phone] [place] [address] [facility] [id number] Managed [phone] [address] MEDICAID [facility] [address] [place], [place]ICAID [id number] [address]: [address] [phone] [address] RON-IZZY REYES Personal/Family Self 1955 [address] [phone] [address] ELIZABETH REYES Personal/Family Self 1955 [address] [phone] [address]
--- OUTSIDE RECORDS SUMMARY | 2016-12-17 11:56 | XMS REPORT | Encounter Summary ---
:1955 Demographics Address [address] [place] [address] Home Phone Home Phone Home Phone Home Phone Preferred Language Croatian Marital Status Not or Yazdanism Affiliation Unknown Race White Ethnic Group Not or Author Organization [employer] [place] [address] Care Team Providers Name Role Phone Unavailable Primary Care Provider Unavailable Reason for Visit Reason Comments Chest Pain "I was in [place] for [place] drug overdose. I am having really bad chest pains. I can't find my nitro so I walked over to the [facility] and they gave me a baby aspirin. I don't know what to do." Encounter Details Date Type Department Care Team Description 03/22/2016 Nurse Triage [facility] Nurse Julia Jaimes, RN Chest Pain ("I was in Call [facility] for a drug [address] [place], [place] overdose. I am [place] [address] having really bad [address] chest pains. I can't [place] find my nitro [place] [phone] walked over to the [facility] and they gave me a baby aspirin. I don't know what to do.") Social History Tobacco Use Types Packs/Day Years Used Date Current Every Day Smoker Quit: 08/04/2013 Smokeless Tobacco: Never Used Alcohol Use Drinks/Week oz/Week Comments No Alcoholic Drinks/day: History of Alcohol Use Denied Sex Assigned at Date Recorded Not on file as of this encounter Plan of Treatment Not on fileas of this encounter Visit Diagnoses Not on filein this encounter
[2016-12-17] MEDS ORDERED: NALBUPHINE HCL 20 MG/ML AMPUL ONE (11:58)
[2016-12-17] MEDS ORDERED: ONDANSETRON HCL/PF 2 MG/ML VIAL ONE (11:58)
[2016-12-17] MEDS ORDERED: ONDANSETRON HCL/PF 2 MG/ML VIAL IM ONE (12:00)
== END 2016-12-17 12:28 | disposition home or self-care (01) ==
LOC: ER 11:43
DX: G43.709 Chronic migraine without aura, not intractable, without status migrainosus (principal)
CPT/HCPCS: 96372; 99284; J2405

== ENCOUNTER 2016-12-18 15:10 | Observation (INO) | payer MEDICARE ==
--- OUTSIDE RECORDS SUMMARY | 2016-12-18 15:25 | XMS REPORT | Encounter Summary ---
:1955 Demographics Address [address] [place] [address] Home Phone Home Phone Home Phone Home Phone Preferred Language Tajik Marital Status Not or Sikh Affiliation Unknown Race White Ethnic Group Not or Author Organization [employer] [place] [address] Care Team Providers Name Role Phone Unavailable Primary Care Provider Unavailable Reason for Visit Reason Comments Chest Pain "I was in [place] for a drug overdose. I am having really bad chest pains. I can't find my nitro so I walked [facility] to [facility] and they gave me a baby aspirin. I don't know what to do." Encounter Details Date Type Department Care Team Description 03/22/2016 Nurse Triage My [facility] Nurse Julia Jaimes, RN Chest Pain ("I was in Call Center [facility] for a drug [address] [place], [place] overdose. I am [place] [address] having really bad [address] chest pains. I can't [place], [place] find my nitro so I [phone] walked [facility] to the [facility] and they gave me a baby aspirin. [...]
--- OUTSIDE RECORDS SUMMARY | 2016-12-18 15:25 | XMS REPORT | Clinical Summary ---
:1955 Demographics Address [address] [place] [address] Home Phone Home Phone Home Phone Home Phone Preferred Language Macanese Marital Status Not or Jain Affiliation Unknown Race White Ethnic Group Not or Author Organization [facility] [place] [address] Care Team Providers Name Role Phone Unavailable Primary Care Provider Unavailable Source Comments This disclosure is being made pursuant to the [facility] [facility] program and maynot contain all information available regarding this patient.[facility] Allergies Active Allergy Reactions Severity Noted Date [...] Address Group MEDICARE MEDICARE A AND B [id number] [phone] [address] [place] [address] MEDICAID MEDICAID [place] [id number] [phone] [phone] [place] [address] [facility] [id number] Managed [phone] [address] MEDICAID [facility] [place] [address] [place], [place] [id number] Home: [address] [phone] [address] RON-IZZY REYES Personal/Family Self 1955 Home: [address] [phone] [address] ELIZABETH REYES Personal/Family Self 1955 Home: [address] [phone] [address]
--- NOTE | 2016-12-18 15:27 | ERNOTE ---
Medical Problem HPI - General Chief Complaint: Drug Overdose Time Seen by Provider: 12/18/16 15:14 Source: patient Exam Limitations: no limitations - Immun/Allergies/Home Medications Immunizations: IMMUNIZATION HX Immunizations Up to Date Yes History of Influenza Vaccine Yes Hx Pneumococcal Vaccination No Allergies/Adverse Reactions: Allergies propranolol [Propranolol] Allergy (Severe, Verified 12/18/16 15:16) Anaphylaxis rash swelling gabapentin [From Neurontin] Allergy (Unknown, Verified 12/18/16 15:16) ampicillin [Ampicillin] Adverse Reaction (Intermediate, Verified 12/18/16 15:16) Itching, rash, swelling aspirin Adverse Reaction (Intermediate, Verified 12/18/16 15:16) Shortness of Breath NSAIDS (Non-Steroidal Anti-Inflamma Adverse Reaction (Intermediate, Verified 15:16) Shortness of Breath prochlorperazine maleate [From Compazine] Adverse Reaction (Intermediate, Verified 12/18/16 15:16) Itching, rash, swelling codeine [Codeine] Adverse Reaction (Mild, Verified 12/18/16 15:16) Itching, rash, swelling diphenhydramine HCl [From Benadryl] Adverse Reaction (Mild, Verified 12/18/16 15 :16) hyper doxycycline Adverse Reaction (Mild, Verified 12/18/16 15:16) Itching ketorolac tromethamine [From Toradol] Adverse Reaction (Mild, Verified 12/18/16 15:16) rash metoclopramide HCl [From Reglan] Adverse Reaction (Mild, Verified 12/18/16 15:16 ) Itching Penicillins Adverse Reaction (Mild, Verified 12/18/16 15:16) Itching prochlorperazine edisylate [From Compazine] Adverse Reaction (Mild, Verified 15:16) Itching, rash, swelling promethazine HCl [From Phenergan] Adverse Reaction (Mild, Verified 12/18/16 15: 16) Itching Sulfa (Sulfonamide Antibiotics) [Sulfa(Sulfonamide Antibiotics)] Adverse Reaction (Mild, Verified 12/18/16 15:16) Itching trazadone Allergy (Severe, Uncoded 12/18/16 15:16) Anaphylaxis Home Medications: HOME MEDICATIONS Alprazolam 2 mg PO HS 10/02/16 [Last Taken Unknown] Lamotrigine [Lamictal] 100 mg PO DAILY 10/02/16 [Last Taken Unknown] Escitalopram Oxalate [Lexapro] 10 mg PO DAILY 11/28/16 [Last Taken Unknown] hydrOXYzine PAMOATE [Vistaril] 50 mg PO Q4H PRN #30 cap 11/28/16 [Last Taken Unknown] Alprazolam 1 mg PO BID #10 tablet 12/01/16 [Last Taken Unknown] Pantoprazole Sodium [Protonix] 40 mg PO DAILY 12/01/16 [Last Taken Unknown] Ziprasidone HCl [Geodon] 60 mg PO BID 12/18/16 [Last Taken Unknown] - History of Present History Narrative: Patient states that two hours prior to coming she took 10-15 lamictal as 'I just can't take it anymore that Jose Alberto is in longterm'. She then woke up the friend that she is staying with and they called the EMS. She denies taking anything else. She is well known to the ER as she comes for multiple visits per month, has a history of drug use and psychiatric problems Date (Duration): 12/18/16 Time (Timing): 13:00 Review of Systems - Review of Systems Constitutional: Absent: recent illness, fever EYE: Absent: vision changes ENT: Absent: sore throat Respiratory: Absent: shortness of breath Cardiology: Absent: chest pain Gastrointestinal/Abdominal: Present: nausea. Absent: vomiting, diarrhea, abdominal pain Genitourinary: Present: no symptoms reported Musculoskeletal: Absent: neck pain Neurological: Present: headache. Absent: weakness, numbness - Patient's Past Medical History Patient History - Medical: Anxiety, Chronic Pain, Depression, Migraines Patient History - Cardiac/Respiratory: No pertinent hx Patient History - Cancer: No Hx of Cancer Patient History - Surgical Procedures: Appendectomy, Cholecystectomy, , Hysterectomy, Other Patient History - Other: None - Family History Father Family History - Medical: Diabetes Type 1, Other Family History - Cardiac/Respiratory: Asthma, Bronchitis, Cardiac Arrest, Coronary Heart Disease, COPD, Hypertension, Pneumonia - Social History Living Situations: home Abuse History: Hx of Substance Use, Hx -Substance Use Tx, Hx-Community Resource Use Psych History: Psychiatric Hx, Hx of Anxiety, Hx of Depression, Hx of Suicide Attempt, Current tx/ever been on anti-depressants or anti-anxiety meds Does anyone smoke in the home?: Yes Alcohol Use: none Drug Use: benzodiazepine, cocaine, marijuana, other - Immunizations Immunizations Up to Date: Yes Hx Pneumococcal Vaccination: No History of Influenza Vaccine: Yes Physical Exam - Physical Exam General Appearance: Present: wd/wn, alert, no apparent distress Head Exam: Present: normal inspection, no evidence of injury Eye Exam: Normal inspection: bilateral, PERRL: bilateral Ears, Nose, Throat: Present: normal ENT inspection, normal pharynx Neck: Present: normal inspection, nontender Respiratory: Present: no respiratory distress, normal breath sounds, no accessory muscle use, lungs clear Cardiovascular/Chest: Present: regular rate, rhythm, no murmur Gastrointestinal/Abdominal: Present: normal bowel sounds, nontender, nondistended, soft Neurological Exam: Present: alert, oriented, normal mood/affect Skin Exam: Present: normal color, warm/dry ED Progress - Results and Orders Patient's Lab Results:: I have reviewed the patient's lab results. - Vital Signs Patient's Vital Signs:: I have reviewed the patient's vital signs. Vital Signs: Vital Signs 12/18/16 15:11 Temperature 36.6 C Pulse Rate 77 Respiratory 13 Rate Blood Pressure 140/78 O2 Sat by Pulse 97 Oximetry - Progress/Reassessment Chief Complaint: Drug Overdose Progress Note-Subjective: 12/18/16 16:57 patient asking repeatedly to go home, explained as she took all that medication she needs to be observed for at least 12 hours (per poison control) Asking for food and drink, needs to stay NPO as she might get more sedated. Asking for headache medication, cannot have any medication that might affect her mental status 12/18/16 17:30 discussed with jordon Skinner to admit for observation Departure - Departure Clinical Impression: Polysubstance abuse Depression Qualifiers: Depression Type: unspecified Qualified Code(s): F32.9 - Major depressive disorder, single episode, unspecified Chronic pain Qualifiers: Chronic pain type: other chronic pain Qualified Code(s): G89.29 - Other chronic pain Overdose Qualifiers: Encounter type: initial encounter Injury intent: intentional self-harm Qualified Code(s): T50.902A - Poisoning by unspecified drugs, medicaments and biological substances, intentional self-harm, initial encounter Disposition: [facility] Condition: Stable
[2016-12-18 16:02] LABS: ALT 26 U/L (19-67); AST 24 U/L (0-48); Albumin * 3.9 gm/dl (3.4-5.0); Alkaline Phosphatase * 76 U/L (50-170); Anion Gap 11.8 mmol/L (6.8-13.8); BUN/Creatinine Ratio 6.7 (9.0-21.6); Bilirubin, Total 0.4 mg/dL (0.0-1.1); Blood Urea Nitrogen 7 mg/dL (3-23); Ca. Corrected For Albumin 9.3 mg/dL (8.4-10.2); Calcium * 9.5 mg/dL (7.9-10.9); Carbon Dioxide 28.7 mmol/L (24-32.6); Chloride 106 mmol/L (97-106); Glucose * 125 mg/dL (70-110); Potassium 3.5 mmol/L (3.4-4.6); Salicylate 6.3 mg/dL (2.8-20.0); Sodium 143 mmol/L (132-142); Total Protein 7.3 gm/dL (6.2-8.2)
[2016-12-18 16:05] LABS: Hemoglobin 14.6 gm/dL (12.5-16.0); Mean Corpuscular Hemoglobin 30.2 pg (27-31); Mean Platelet Volume 10.7 fl (6.0-9.5); Neutrophil # 4.4 K/mm3 (1.3-6.0); Neutrophil % 67.2 % (42-75.0); Platelet Count 185 K/mm3 (150-450); Red Blood Count 4.83 M/mm3 (4.2-5.4); Red Cell Distribution Width 13.4 % (11.5-14.0); White Blood Count 6.5 K/mm3 (4.0-10.5)
[2016-12-18 17:19] LABS: Cocaine Ur Positive (NEGATIVE); Urine Barbiturate Negative (NEGATIVE); Urine Benzodiazepines Positive (NEGATIVE); Urine Opiates Negative (NEGATIVE); Urine PCP Negative (NEGATIVE); Urine THC Positive (NEGATIVE)
[2016-12-18 17:26] LABS: Urine Appearance Clear; Urine Bilirubin Negative (NEGATIVE); Urine Blood 50 /ul (NEGATIVE); Urine Color Yellow; Urine Ketone Negative (NEGATIVE); Urine Nitrite Negative (NEGATIVE); Urine Protein Negative (NEGATIVE); Urine Specific Gravity 1.005 SP.GR. (1.005-1.010); Urine Urobilinogen Normal (NORMAL)
[2016-12-18 17:27] LABS: Urine Bacteria 1+; Urine RBC 0-5 /hpf (0-5)
[2016-12-18] MEDS ORDERED: NORMAL SALINE 1,000 ML IV ONE (17:27)
[2016-12-18] MEDS ORDERED: ONDANSETRON HCL/PF 2 MG/ML VIAL ONE (17:32)
[2016-12-18] MEDS ORDERED: ONDANSETRON HCL/PF 2 MG/ML VIAL IV ONE (17:32)
--- OUTSIDE RECORDS SUMMARY | 2016-12-18 17:40 | XMS REPORT | Clinical Summary ---
:1955 Demographics Address [address] [place] [address] Home Phone Home Phone Home Phone Home Phone Preferred Language [place] Citizen Marital Status Not or Mosque Affiliation Unknown Race White Ethnic Group Not or Author Organization [employer] [place] [address] Care Team Providers Name Role Phone Unavailable Primary Care Provider Unavailable Source Comments This disclosure is being made pursuant to the [email or web address] program and maynot contain all information available regarding this patient.[facility] Allergies Active Allergy Reactions Severity Noted Date [...] Address Group MEDICARE MEDICARE A AND B [id number] [phone] [address] [place] [address] MEDICAID [place] [id number] [phone] [phone] [place] [address] [facility] [id number] Managed [phone] [address] MEDICAID [facility] [address] [place], [place] [id number] Home: [address] [phone] [address] RON-IZZY REYES Personal/Family Self 1955 Home: [address] [phone] [address] ELIZABETH REYES Personal/Family Self 1955 Home: [address] [phone] [address]
--- OUTSIDE RECORDS SUMMARY | 2016-12-18 17:40 | XMS REPORT | Encounter Summary ---
:1955 Demographics Address [address] [place] [address] Home Phone Home Phone Home Phone Home Phone Preferred Language Nepali Marital Status Not or Congregation Affiliation Unknown Race White Ethnic Group Not or Author Organization [employer] [place] [address] Care Team Providers Name Role Phone Unavailable Primary Care Provider Unavailable Reason for Visit Reason Comments Chest Pain "I was in [facility] for a drug overdose. I am having really bad chest pains. I can't find my nitro so I walked over to the [facility] and they gave me a baby aspirin. I don't know what to do." Encounter Details Date Type Department Care Team Description 03/22/2016 Nurse Triage [facility] Nurse Julia Jaimes, RN Chest Pain ("I was in [facility] for a drug [address] [place], [place] overdose. I am [place] [address] having really bad [address] chest pains. I can't [place], [place] find my nitro so I [address] walked over to the [facility] and they gave me a baby aspirin. [...]
[2016-12-18] MEDS ORDERED: ONDANSETRON HCL/PF 2 MG/ML VIAL IV PRN (19:54)
--- NOTE | 2016-12-18 21:12 | HP ---
Chief Complaint - Chief Complaint Date of Service: 12/18/16 Time of Service: 20:44 Chief Complaint: " Intentional Drug Oversode". Source of HPI- Pt; reliable, ER provider report. History of Present Illness: Ms. Reyes is a 60-yr-old WF with a PMH of: Asthma, Anxiety, Depression, Chronic Pain Syndrome, GERD, Kidney Stones, Hep C, Migraines, VICTORINA, PID. Pt states that she intentionally overdosed on 10 tablets of 100mg Lamactical. She reports that her son is serving usp sentence for marijuana distribution and use, and her daughter suffers from Lupus. She states that she felt overwhelmed from emotional problems involving her son and daughter and overdosed on medications "in order to forget her problems." After taking the lamictal pills, she called her friend to tell her that she had intentionally overdosed on pills. Her friend brought her to the ED. While at the ED, her toxicology screen showed she was positive Benzodiazepines,Cocaine & Marijuana. The ERP contacted the poison control and it was felt advisable to admit pt under observation status to monitor for unstable V.S and for deterioration of mental status. - Patient's Past Medical History Patient History - Medical: Anxiety, Arthritis, Chronic Pain, Depression, GERD, Kidney stone - Hepatitis C., Migraines, Other Patient History - Cardiac/Respiratory: Asthma, Hypertension, Hyperlipidemia, Sleep Apnea Patient History - Surgical Procedures: Appendectomy, Cholecystectomy, , Hysterectomy, Other Patient History - Other: None - Family History Father Family History - Medical: Diabetes Type 1, Other Family History - Cardiac/Respiratory: Asthma, Bronchitis, Cardiac Arrest, Coronary Heart Disease, COPD, Hypertension, Pneumonia Mother Family History - Medical: No pertinent hx - Social History Living Situations: home Abuse History: Hx of Substance Use, Hx -Substance Use Tx, Hx-Community Resource Use Psych History: Psychiatric Hx, Hx of Anxiety, Hx of Depression, Hx of Suicide Attempt, Current tx/ever been on anti-depressants or anti-anxiety meds Does anyone smoke in the home?: Yes Alcohol Use: none Drug Use: benzodiazepine, cocaine, marijuana, other - Immunizations Immunizations Up to Date: Yes Hx Pneumococcal Vaccination: No History of Influenza Vaccine: Yes Review Of Systems (GEN) - Review of Systems Generalized/Overall Review: Absent: Weakness, Chills, Fever, Malaise EENTM: Absent: Eye Pain, Blurred Vision, Tearing Respiratory: Absent: Cough, Shortness of Breath, Orthopnea Cardiac: Absent: Chest Pain, Edema, Palpitations Abdominal: Absent: Nausea, Vomiting, Hematemesis Genitourinary: Absent: Burning, Frequency, Hesitancy, Dysuria Musculoskeletal: Absent: Joint Pain, Back Pain, Joint Swelling Neurological: Absent: Headache, Anxiety, Depressed Skin: Absent: Dryness, Lesions Endocrine: Absent: Intolerance to Cold, Increased Thirst Misc: All systems neg except as marked Immunizations: IMMUNIZATION HX Immunizations Up to Date Yes History of Influenza Vaccine Yes Hx Pneumococcal Vaccination No Allergies/Adverse Reactions: Allergies Allergy/AdvReac Type Severity Reaction Status Date / Time propranolol [Propranolol] Allergy Severe Anaphylaxis Verified 12/18/16 15:16 gabapentin [From Neurontin] Allergy Unknown Verified 12/18/16 15:16 ampicillin [Ampicillin] AdvReac Intermediate Itching, Verified 12/18/16 15:16 rash, swelling aspirin AdvReac Intermediate Shortness Verified 12/18/16 15:16 of Breath NSAIDS (Non-Steroidal AdvReac Intermediate Shortness Verified 12/18/16 15:16 Anti-Inflamma of Breath prochlorperazine maleate AdvReac Intermediate Itching, Verified 12/18/16 15:16 [From Compazine] rash, swelling codeine [Codeine] AdvReac Mild Itching, Verified 12/18/16 15:16 rash, swelling diphenhydramine HCl AdvReac Mild hyper Verified 12/18/16 15:16 [From Benadryl] doxycycline AdvReac Mild Itching Verified 12/18/16 15:16 ketorolac tromethamine AdvReac Mild rash Verified 12/18/16 15:16 [From Toradol] metoclopramide HCl AdvReac Mild Itching Verified 12/18/16 15:16 [From Reglan] Penicillins AdvReac Mild Itching Verified 12/18/16 15:16 prochlorperazine edisylate AdvReac Mild Itching, Verified 12/18/16 15:16 [From Compazine] rash, swelling promethazine HCl AdvReac Mild Itching Verified 12/18/16 15:16 [From Phenergan] Sulfa (Sulfonamide AdvReac Mild Itching Verified 12/18/16 15:16 Antibiotics) [Sulfa(Sulfonamide Antibiotics)] trazadone Allergy Severe Anaphylaxis Uncoded 12/18/16 15:16 Home Medications: HOME MEDICATIONS Alprazolam 2 mg PO HS 10/02/16 [Last Taken Unknown] Lamotrigine [Lamictal] 100 mg PO DAILY 10/02/16 [Last Taken Unknown] Escitalopram Oxalate [Lexapro] 10 mg PO DAILY 11/28/16 [Last Taken Unknown] hydrOXYzine PAMOATE [Vistaril] 50 mg PO Q4H PRN #30 cap 11/28/16 [Last Taken Unknown] Alprazolam 1 mg PO BID #10 tablet 12/01/16 [Last Taken Unknown] Pantoprazole Sodium [Protonix] 40 mg PO DAILY 12/01/16 [Last Taken Unknown] Ziprasidone HCl [Geodon] 60 mg PO BID 12/18/16 [Last Taken Unknown] Exam - Exam Vital Signs: Vital Signs - Last Taken Temp 36.8 C 12/18/16 17:45 Pulse 61 12/18/16 17:45 Resp 13 12/18/16 17:45 BP 124/73 12/18/16 17:45 Pulse Ox 96 12/18/16 17:45 Constitutional: Present: Alert, Oriented x3, Cooperative, No distress ENT Exam: Present: normal ENT inspection, hearing grossly normal, hard of hearing Eye Exam: bilateral eye: normal inspection, PERRL Neck: Present: full range of motion, supple, normal inspection Back Exam: Present: normal inspection, no CVA tenderness Respiratory: Present: lungs clear, normal breath sounds, no respiratory distress Cardiovascular/Chest: Present: normal peripheral pulses, regular rate, rhythm, no chest tenderness Abdomen: Present: Normal bowel sounds, soft, nontender, nondistended /Rectal: Present: Exam deferred Extremity: Present: non-tender, normal inspection, no pedal edema Skin Exam: Present: warm/dry, no cyanosis Lymphatic: Present: no adenopathy Neurologic: Present: no motor/sensory deficits, alert, normal mood/affect, oriented x 3 Appearance: Present: appropriate appearance, appropriate insight Eye contact: Present: cooperative, good eye contact, normal speech Thoughts: Present: normal thought pattern, no apparent hallucination Diagnostic Studies: Abnormal Lab Results 12/18/16 Range/Units Unknown U Benzodiazepines Scrn Positive H (NEGATIVE) Urine Cocaine Screen Positive H (NEGATIVE) Urine Marijuana (THC) Positive H (NEGATIVE) Laboratory Results WBC 6.5 K/mm3 (4.0-10.5) 12/18/16 15:24 RBC 4.83 M/mm3 (4.2-5.4) 12/18/16 15:24 Hgb 14.6 gm/dL (12.5-16.0) 12/18/16 15:24 Hct 43.0 % (37.0-47.0) 12/18/16 15:24 MCV 89.0 fl (78-100) 12/18/16 15:24 MCH 30.2 pg (27-31) 12/18/16 15:24 MCHC 34.0 g/dl (32-36) 12/18/16 15:24 RDW 13.4 % (11.5-14.0) 12/18/16 15:24 Plt Count 185 K/mm3 (150-450) 12/18/16 15:24 MPV 10.7 fl (6.0-9.5) H 12/18/16 15:24 Immature Gran % (Auto) 0.30 % (0.001-0.429) 12/18/16 15:24 Immature Gran # (Auto) 0.02 K/mm3 (0.000-0.0310) 12/18/16 15:24 Neutrophils % 67.2 % (42-75.0) 12/18/16 15:24 Lymphocytes % 24.1 % (20-51) 12/18/16 15:24 Monocytes % 6.5 % (0.0-9) 12/18/16 15:24 Eosinophils % 1.4 % (0.0-3.0) 12/18/16 15:24 Basophils % 0.5 % (0.0-1.0) 12/18/16 15:24 Nucleated RBC % 0.0 k/mm3 (0-1) 12/18/16 15:24 Neutrophils # 4.4 K/mm3 (1.3-6.0) 12/18/16 15:24 Lymphocytes # 1.6 k/mm3 (1.5-3.5) 12/18/16 15:24 Monocytes # 0.4 k/mm3 (0.0-1.0) 12/18/16 15:24 Eosinophils # 0.1 k/mm3 (0.0-0.7) 12/18/16 15:24 Absolute Basophils 0.0 k/mm3 (0.0-0.1) 12/18/16 15:24 Sodium 143 mmol/L (132-142) H 12/18/16 15:24 Plasma Sodium 143 mmol/L (130-142) H 12/18/16 15:24 Potassium 3.5 mmol/L (3.4-4.6) D 12/18/16 15:24 Chloride 106 mmol/L (97-106) 12/18/16 15:24 Carbon Dioxide 28.7 mmol/L (24-32.6) 12/18/16 15:24 Anion Gap 11.8 mmol/L (6.8-13.8) 12/18/16 15:24 BUN 7 mg/dL (3-23) 12/18/16 15:24 Creatinine 1.04 mg/dL (0.4-1.4) 12/18/16 15:24 Est GFR (Non-Af Amer) 58 mL/min (60-130) L 12/18/16 15:24 BUN/Creatinine Ratio 6.7 (9.0-21.6) L 12/18/16 15:24 Random Glucose 125 mg/dL (70-110) H 12/18/16 15:24 Calcium 9.5 mg/dL (7.9-10.9) 12/18/16 15:24 Calcium Adj for Albumin 9.3 mg/dL (8.4-10.2) 12/18/16 15:24 Total Bilirubin 0.4 mg/dL (0.0-1.1) 12/18/16 15:24 AST 24 U/L (0-48) 12/18/16 15:24 ALT 26 U/L (19-67) 12/18/16 15:24 Alkaline Phosphatase 76 U/L (50-170) 12/18/16 15:24 Total Protein 7.3 gm/dL (6.2-8.2) 12/18/16 15:24 Albumin 3.9 gm/dl (3.4-5.0) 12/18/16 15:24 Urine Color Yellow 12/18/16 17:01 Urine Appearance Clear 12/18/16 17:01 Urine pH 6.0 pH (5.0-7.0) 12/18/16 17:01 Ur Specific [place] 1.005 SP.GR. (1.005-1.010) 12/18/16 17:01 Urine Protein Negative mg/dL (NEGATIVE) 12/18/16 17:01 Urine Glucose (UA) Negative mg/dL (NEGATIVE) 12/18/16 17:01 Urine Ketones Negative mg/dL (NEGATIVE) 12/18/16 17:01 Urine Blood 50 /ul (NEGATIVE) H 12/18/16 17:01 Urine Nitrate Negative (NEGATIVE) 12/18/16 17:01 Urine Bilirubin Negative mg/dl (NEGATIVE) 12/18/16 17:01 Urine Urobilinogen Normal EU/dl (NORMAL) 12/18/16 17:01 Ur Leukocyte Esterase 100 /ul (NEGATIVE) H 12/18/16 17:01 Urine RBC 0-5 /hpf (0-5) 12/18/16 17:01 Urine WBC 5-10 /hpf (0-5) H 12/18/16 17:01 Ur Epithelial Cells 0-5 /hpf (0-5) 12/18/16 17:01 Urine Bacteria 1+ (NONE) H 12/18/16 17:01 Urine Culture Comments Culture to follow 12/18/16 17:01 Salicylates 6.3 mg/dL (2.8-20.0) 12/18/16 15:24 Urine Opiates Screen Negative (NEGATIVE) 12/18/16 Unknown Acetaminophen Less than 0.2 mcg/mL (10.0-30.0) L 12/18/16 15:24 Barbiturate Screen Negative (NEGATIVE) 12/18/16 Unknown Ur Phencyclidine Scrn Negative (NEGATIVE) 12/18/16 Unknown Urine Amphetamine Negative (NEGATIVE) 12/18/16 Unknown U Benzodiazepines Scrn Positive (NEGATIVE) H 12/18/16 Unknown Urine Cocaine Screen Positive (NEGATIVE) H 12/18/16 Unknown Urine Marijuana (THC) Positive (NEGATIVE) H 12/18/16 Unknown Ethyl Alcohol Less than 3.0 mg/dL (0.0-10.0) 12/18/16 15:24 Assessment/Plan - Assessment/Plan (1) Intentional drug overdose Assessment: Ms. Reyes is a 60-yr-old WF who had an intentional drug overdose with Lamictal due to emotional problems that she felt she could not handle and wanted to forget about them. She denies having the intent to kill herself. She informed her friend about the overdose, who then brought her to the ED. She has a long history of Psychiatric disorders and Substance abuse. [facility]'s toxicology screen showed she was positive for Benzodiazepines, cocaine & Marijuana.She was noted to have drowsiness. Since she overdosed on an anticonvulsant, it is best that she be observed/monitored for seizures. Due to other presence of Benzodiazepines, cocaine & Marijuana in her system, she will be monitored to ensure she can protect her airway and will receive Supportive care with IVF to prevent hypotension. So far, V.S have remained stable. She has been able to control her airway. At the time of physical examination, she complains of headache and demands IV Nubain stating that's 'its the only medication that can work for her headache.' I asked her what her home regimen is for her migraines and she stated that she takes "oxycodone," which is not listed in her home medication list. I reiterated to her that since she was here for drug overdose, the medications that could cause or worsen somnolences needed to be avoided and that any IV narcotics could cause hypotension, thus going against treatment goals prior to discharge. Pt became silent, refusing to answer additional questions. She then demanded to know when she can be allowed to eat. She will be monitored through the night for changing V.S and LOC. If no other acute events overnight, she may be discharged home in am and will be advised to follow up with her psychiatry provider and Counselor as she has been terminated from the [facility] due to, non- compliance with treatment. Problem: Acute (2) Noncompliance by refusing service Problem: Acute (3) Depression Problem: Chronic Qualifiers: Depression Type: unspecified Qualified Code(s): F32.9 - Major depressive disorder, single episode, unspecified (4) Polysubstance abuse Problem: Chronic (5) Anxiety Problem: Chronic (6) Chronic pain syndrome Problem: Chronic (7) Marijuana intoxication Problem: Chronic (8) Migraine Problem: Chronic
[2016-12-18] MEDS ORDERED: ACETAMINOPHEN 325 MG TABLET PO PRN (21:25)
[2016-12-18 22:04] VITALS: BP 104/49
--- NOTE | 2016-12-18 23:32 | DS ---
(1) Intentional drug overdose Problem: Acute (2) Noncompliance by refusing service Problem: Acute (3) Depression Problem: Chronic Qualifiers: Depression Type: unspecified Qualified Code(s): F32.9 - Major depressive disorder, single episode, unspecified (4) Polysubstance abuse Problem: Chronic (5) Anxiety Problem: Chronic (6) Chronic pain syndrome Problem: Chronic (7) Marijuana intoxication Problem: Chronic (8) Migraine Problem: Chronic Description of Stay: Mrs. Reyes was admitted on 12/18/16 for Intentional Drug overdose on Lamictal. While at the ED, her toxicology screen showed she was also positive Benzodiazepines,Cocaine & Marijuana. The ERP contacted the poison control and it was felt advisable to admit pt under observation status to monitor for unstable V.S and for deterioration of mental status. She was admitted to the [facility] for closed monitoring due to the overdose. Sometime after 2199, nursing reported that pt was refusing her V.S to be checked and demanded her IV site to be pulled out when she had IVF running for supportive purpose due to the overdose. She then pulled out her IV. I reiterated to her that her actions were interfering with the medical treatment and the importance of staying through the observation period. Pt demanded her purse which had been locked up, stating she wanted to retrieve it so she can pay for a cab to go home. She chose to leave sometime after 2229, refusing to sign the AMA paper. She was alert & oriented x 4 and last obtained v.s were stable. Procedures Performed: none Discharge Disposition: AMA Disposition: Home self-care Condition: Good Discharge Activity: Activity as tolerated Discharge Diet: General/regular food Complete Home Medications List: Complete Home Medication List: Alprazolam 2 mg PO HS 10/02/16 Lamotrigine [Lamictal] 100 mg PO DAILY 10/02/16 Escitalopram Oxalate [Lexapro] 10 mg PO DAILY 11/28/16 hydrOXYzine PAMOATE [Vistaril] 50 mg PO Q4H PRN #30 cap 11/28/16 Alprazolam 1 mg PO BID #10 tablet 12/01/16 Pantoprazole Sodium [Protonix] 40 mg PO DAILY 12/01/16 Ziprasidone HCl [Geodon] 60 mg PO BID 12/18/16
== END 2016-12-18 22:55 | disposition left against medical advice (07) ==
LOC: ER 15:10 → MS 17:35 → SCU 17:37
PROVIDERS: ADMIT Internal Medicine; ATTEND Internal Medicine
DX: T42.6X2A Poisoning by other antiepileptic and sedative-hypnotic drugs, intentional self-harm, initial encounter (principal); Y92.9 Unspecified place or not applicable; F32.9 Major depressive disorder, single episode, unspecified; F19.10 Other psychoactive substance abuse, uncomplicated; F41.9 Anxiety disorder, unspecified; G89.4 Chronic pain syndrome; G43.909 Migraine, unspecified, not intractable, without status migrainosus
CPT/HCPCS: 36415; 80053; 80307; 81001; 85025; 87086; 93005; 94760; 96374; 99283; G0378; G0480; G0481; J2405

== ENCOUNTER 2016-12-21 11:20 | Emergency (ER) | payer MEDICARE ==
[2016-12-21 11:32] VITALS: BP 160/100
[2016-12-21 11:51] LABS: Urine Bilirubin Negative (NEGATIVE); Urine Blood 250 /ul (NEGATIVE); Urine Ketone Negative (NEGATIVE); Urine Protein 15 mg/dL (NEGATIVE); Urine Urobilinogen Normal (NORMAL)
[2016-12-21 11:56] LABS: Urine Appearance Cloudy; Urine Color Dark Yellow; Urine Nitrite Positive (NEGATIVE)
[2016-12-21 11:57] LABS: Urine Amorphous Sediment Moderate - 2+ (NONE-FEW); Urine Bacteria 1+; Urine WBC 25-50 /hpf (0-5)
[2016-12-21] MEDS ORDERED: ONDANSETRON HCL/PF 2 MG/ML VIAL IM ONE (12:17)
--- OUTSIDE RECORDS SUMMARY | 2016-12-21 12:17 | XMS REPORT | Clinical Summary ---
:1955 Demographics Address [address] [place] [address] Home Phone Home Phone Home Phone Home Phone Preferred Language Pashto Marital Status Not or Adventist Affiliation Unknown Race White Ethnic Group Not or Author Organization [employer] [place] [address] Care Team Providers Name Role Phone Unavailable Primary Care Provider Unavailable Source Comments This disclosure is being made pursuant to the [employer] program and maynot contain all information available regarding this patient.[employer] Allergies Active Allergy Reactions Severity Noted Date [...] Address Group MEDICARE MEDICARE A AND B [id number] [phone] [address] [place] [address] MEDICAID MEDICAID [place] PLAN [id number] [phone] [place] [address] [facility] [id number] Managed [phone] [address] MEDICAID [facility] [place] [address] [place], [place] [id number] Home: [address] [phone] [address] RON-IZZY REYES Personal/Family Self 1955 Home: [address] [phone] [address] ELIZABETH REYES Personal/Family Self 1955 Home: [address] [phone] [address]
--- NOTE | 2016-12-21 12:22 | ERNOTE ---
ER Female HPI Stated Complaint: KIDNEY PAIN Presenting Symptoms: dysuria Time Seen by Provider: 12/21/16 12:10 Source: patient Exam Limitations: no limitations Immunizations: IMMUNIZATION HX Immunizations Up to Date Yes History of Influenza Vaccine No Hx Pneumococcal Vaccination No Allergies/Adverse Reactions: Allergies propranolol [Propranolol] Allergy (Severe, Verified 12/21/16 11:30) Anaphylaxis rash swelling gabapentin [From Neurontin] Allergy (Unknown, Verified 12/21/16 11:30) ampicillin [Ampicillin] Adverse Reaction (Intermediate, Verified 12/21/16 11:30) Itching, rash, swelling aspirin Adverse Reaction (Intermediate, Verified 12/21/16 11:30) Shortness of Breath NSAIDS (Non-Steroidal Anti-Inflamma Adverse Reaction (Intermediate, Verified 06/08 11:30) Shortness of Breath prochlorperazine maleate [From Compazine] Adverse Reaction (Intermediate, Verified 12/21/16 11:30) Itching, rash, swelling codeine [Codeine] Adverse Reaction (Mild, Verified 12/21/16 11:30) Itching, rash, swelling diphenhydramine HCl [From Benadryl] Adverse Reaction (Mild, Verified 12/21/16 11 :30) hyper doxycycline Adverse Reaction (Mild, Verified 12/21/16 11:30) Itching ketorolac tromethamine [From Toradol] Adverse Reaction (Mild, Verified 12/21/16 11:30) rash metoclopramide HCl [From Reglan] Adverse Reaction (Mild, Verified 12/21/16 11:30 ) Itching Penicillins Adverse Reaction (Mild, Verified 12/21/16 11:30) Itching prochlorperazine edisylate [From Compazine] Adverse Reaction (Mild, Verified 06/08 11:30) Itching, rash, swelling promethazine HCl [From Phenergan] Adverse Reaction (Mild, Verified 12/21/16 11: 30) Itching Sulfa (Sulfonamide Antibiotics) [Sulfa(Sulfonamide Antibiotics)] Adverse Reaction (Mild, Verified 12/21/16 11:30) Itching trazadone Allergy (Severe, Uncoded 12/21/16 11:30) Anaphylaxis Home Medications: HOME MEDICATIONS Alprazolam 2 mg PO HS 10/02/16 [Last Taken Unknown] Lamotrigine [Lamictal] 100 mg PO DAILY 10/02/16 [Last Taken Unknown] Escitalopram Oxalate [Lexapro] 10 mg PO DAILY 11/28/16 [Last Taken Unknown] hydrOXYzine PAMOATE [Vistaril] 50 mg PO Q4H PRN #30 cap 11/28/16 [Last Taken Unknown] Alprazolam 1 mg PO BID #10 tablet 12/01/16 [Last Taken Unknown] Ziprasidone HCl [Geodon] 60 mg PO BID 12/18/16 [Last Taken Unknown] Ondansetron [Zofran Odt] 4 mg PO Q4H PRN #10 tab 12/21/16 [Last Taken Unknown] Pantoprazole Sodium [Protonix] 40 mg PO DAILY #30 tablet. 12/21/16 [Last Taken Unknown] Sulfamethoxazole/Trimethoprim [Bactrim Ds] 1 tab PO BID #20 tab 12/21/16 [Last Taken Unknown] - History of Present Illness Narrative: Patient started to have dysuria and frequency since yesterday, vomiting since last night, lower abdominal pain since being admitted for a geodon overdose three days ago Date (Duration): 12/20/16 Timing: Present: constant, getting worse Review of Systems - Review of Systems Constitutional: Present: recent illness. Absent: fever ENT: Absent: sore throat Respiratory: Absent: shortness of breath Cardiology: Absent: chest pain Gastrointestinal/Abdominal: Present: See HPI, nausea, vomiting, abdominal pain. Absent: diarrhea Genitourinary: Present: See HPI, frequency, dysuria Musculoskeletal: Absent: back pain Skin: Absent: rash Neurological: Absent: headache - Patient's Past Medical History Patient History - Medical: Anxiety, Arthritis, Chronic Pain, Depression, GERD, Kidney stone, Migraines, Other Patient History - Cardiac/Respiratory: Asthma, Hypertension, Hyperlipidemia, Sleep Apnea Patient History - Cancer: No Hx of Cancer Patient History - Surgical Procedures: Appendectomy, Cholecystectomy, , Hysterectomy, Other Patient History - Other: None LMP (females 10-50): Menopausal - Family History Father Family History - Medical: Diabetes Type 1, Other Family History - Cardiac/Respiratory: Asthma, Bronchitis, Cardiac Arrest, Coronary Heart Disease, COPD, Hypertension, Pneumonia Mother Family History - Medical: No pertinent hx - Social History Living Situations: other Abuse History: Hx of Substance Use, Hx -Substance Use Tx, Hx-Community Resource Use Psych History: Psychiatric Hx, Hx of Anxiety, Hx of Depression, Hx of Suicide Attempt, Current tx/ever been on anti-depressants or anti-anxiety meds Does anyone smoke in the home?: Yes Smoking Status: Current every day smoker Alcohol Use: none Drug Use: benzodiazepine, cocaine, marijuana, other - Immunizations Immunizations Up to Date: Yes Hx Pneumococcal Vaccination: No History of Influenza Vaccine: No Physical Exam - Physical Exam General Appearance: Present: wd/wn, alert, mild distress - crying, anxious Eye Exam: Normal inspection: bilateral, PERRL: bilateral Respiratory: Present: no respiratory distress, normal breath sounds, no accessory muscle use, lungs clear Cardiovascular/Chest: Present: regular rate, rhythm, no murmur Gastrointestinal/Abdominal: Present: normal bowel sounds, nondistended, soft, tenderness - suprapubic Back Exam: Present: no CVA tenderness Neurological Exam: Present: alert, oriented, normal mood/affect Skin Exam: Present: normal color, warm/dry ED Progress - Results and Orders Patient's Lab Results:: I have reviewed the patient's lab results. - Vital Signs Patient's Vital Signs:: I have reviewed the patient's vital signs. Vital Signs: Vital Signs 12/21/16 12/21/16 11:28 11:31 Temperature 36.7 C Pulse Rate 67 75 Respiratory 16 16 Rate Blood Pressure 161/109 160/100 O2 Sat by Pulse 99 99 Oximetry - Progress/Reassessment Chief Complaint: Genitourinary Problem Progress Note-Subjective: 12/21/16 13:02 tolerated po Departure Clinical Impression: Acute UTI - Departure Disposition: Home self-care Condition: Fair Instructions: Urinary Tract Infection, Adult, [id number] Additional Instructions: call your doctor for follow Prescriptions: Ondansetron [Zofran Odt] 4 mg PO Q4H PRN #10 tab PRN Reason: Nausea And Vomiting Pantoprazole Sodium [Protonix] 40 mg PO DAILY #30 tablet. Sulfamethoxazole/Trimethoprim [Bactrim Ds] 1 tab PO BID #20 tab
[2016-12-21] MEDS ORDERED: ONDANSETRON HCL/PF 2 MG/ML VIAL ONE (12:24)
[2016-12-21] MEDS ORDERED: LORazepam 2 MG/ML DISP.SYRIN IM ONE (12:47)
[2016-12-21] MEDS ORDERED: LORazepam 2 MG/ML DISP.SYRIN ONE (12:57)
== END 2016-12-21 13:08 | disposition home or self-care (01) ==
LOC: ER 11:20
DX: Z87.442 Personal history of urinary calculi (principal); F17.200 Nicotine dependence, unspecified, uncomplicated; N39.0 Urinary tract infection, site not specified; F41.9 Anxiety disorder, unspecified; F32.9 Major depressive disorder, single episode, unspecified; K21.9 Gastro-esophageal reflux disease without esophagitis
CPT/HCPCS: 81001; 87077; 87086; 87186; 96372; 99284; J2405

== ENCOUNTER 2016-12-23 17:05 | Emergency (ER) | payer MEDICARE ==
[2016-12-23 17:16] VITALS: BP 149/95
--- OUTSIDE RECORDS SUMMARY | 2016-12-23 17:31 | XMS REPORT | Clinical Summary ---
:1955 Demographics Address [address] [place] [address] Home Phone Home Phone Home Phone Home Phone Preferred Language Belarusian Marital Status Not or Baptist Affiliation Unknown Race White Ethnic Group Not or Author Organization [employer] [place] [address] Care Team Providers Name Role Phone Unavailable Primary Care Provider Unavailable Source Comments This disclosure is being made pursuant to the [employer] program and maynot contain all information available regarding this patient.[employer] Allergies Active Allergy Reactions Severity Noted Date [...] Address Group MEDICARE MEDICARE A AND B [id number] [phone] [address] [place] [address] MEDICAID MEDICAID [place] PLAN [id number] [phone] [place] [address] [facility] [id number] Managed [phone] MEDICAID [facility] [place] [address] [place], [place] [id number] Home: [address] [phone] [address] RON-IZZY REYES Personal/Family Self 1955 Home: [address] [phone] [address] ELIZABETH REYES Personal/Family Self 1955 Home: [address] [phone] [address]
[2016-12-23] MEDS ORDERED: LORazepam 2 MG/ML DISP.SYRIN IM ONE (17:32)
[2016-12-23] MEDS ORDERED: LORazepam 2 MG/ML DISP.SYRIN ONE (17:34)
--- NOTE | 2016-12-23 17:44 | ERNOTE ---
Psychological HPI - General Chief Complaint: Anxiety Source: Reports: patient Exam Limitations: Reports: no limitations - Immun/Allergies/Home Medications Allergies/Adverse Reactions: Allergies propranolol [Propranolol] Allergy (Severe, Verified 12/23/16 17:17) Anaphylaxis rash swelling gabapentin [From Neurontin] Allergy (Unknown, Verified 12/23/16 17:17) ampicillin [Ampicillin] Adverse Reaction (Intermediate, Verified 12/23/16 17:17) Itching, rash, swelling aspirin Adverse Reaction (Intermediate, Verified 12/23/16 17:17) Shortness of Breath NSAIDS (Non-Steroidal Anti-Inflamma Adverse Reaction (Intermediate, Verified 08/06 17:17) Shortness of Breath prochlorperazine maleate [From Compazine] Adverse Reaction (Intermediate, Verified 12/23/16 17:17) Itching, rash, swelling codeine [Codeine] Adverse Reaction (Mild, Verified 12/23/16 17:17) Itching, rash, swelling diphenhydramine HCl [From Benadryl] Adverse Reaction (Mild, Verified 12/23/16 17 :17) hyper doxycycline Adverse Reaction (Mild, Verified 12/23/16 17:17) Itching ketorolac tromethamine [From Toradol] Adverse Reaction (Mild, Verified 12/23/16 17:17) rash metoclopramide HCl [From Reglan] Adverse Reaction (Mild, Verified 12/23/16 17:17 ) Itching Penicillins Adverse Reaction (Mild, Verified 12/23/16 17:17) Itching prochlorperazine edisylate [From Compazine] Adverse Reaction (Mild, Verified 08/06 17:17) Itching, rash, swelling promethazine HCl [From Phenergan] Adverse Reaction (Mild, Verified 12/23/16 17: 17) Itching Sulfa (Sulfonamide Antibiotics) [Sulfa(Sulfonamide Antibiotics)] Adverse Reaction (Mild, Verified 12/23/16 17:17) Itching trazadone Allergy (Severe, Uncoded 12/23/16 17:17) Anaphylaxis Home Medications: HOME MEDICATIONS Alprazolam 2 mg PO HS 10/02/16 [Last Taken Unknown] Lamotrigine [Lamictal] 100 mg PO DAILY 10/02/16 [Last Taken Unknown] Escitalopram Oxalate [Lexapro] 10 mg PO DAILY 11/28/16 [Last Taken Unknown] hydrOXYzine PAMOATE [Vistaril] 50 mg PO Q4H PRN #30 cap 11/28/16 [Last Taken Unknown] Alprazolam 1 mg PO BID #10 tablet 12/01/16 [Last Taken Unknown] Ziprasidone HCl [Geodon] 60 mg PO BID 12/18/16 [Last Taken Unknown] Ondansetron [Zofran Odt] 4 mg PO Q4H PRN #10 tab 12/21/16 [Last Taken Unknown] Pantoprazole Sodium [Protonix] 40 mg PO DAILY #30 tablet. 12/21/16 [Last Taken Unknown] Sulfamethoxazole/Trimethoprim [Bactrim Ds] 1 tab PO BID #20 tab 12/21/16 [Last Taken Unknown] - History of Present Illness Narrative: Patient is here as she is very stressed about her bank account. She got her social security check, paid her bills and thinks that she should have more money than she does. She has multiple ER visits per month for varying concerns, decreasing social functioning, denies any recent drug use (it has been a few weeks) Time Seen by Provider: 12/23/16 17:25 Arrived by: Reports: private car Review of Systems - Review of Systems Constitutional: Present: recent illness Respiratory: Present: no symptoms reported Cardiology: Present: no symptoms reported Gastrointestinal/Abdominal: Absent: vomiting Neurological: Present: emotional problems Psych: Present: emotional problems - Patient's Past Medical History Patient History - Medical: Anxiety, Arthritis, Chronic Pain, Depression, GERD, Kidney stone, Migraines, Other Patient History - Cardiac/Respiratory: Asthma, Hypertension, Hyperlipidemia, Sleep Apnea Patient History - Cancer: No Hx of Cancer Patient History - Surgical Procedures: Appendectomy, Cholecystectomy, , Hysterectomy, Other Patient History - Other: None - Family History Father Family History - Medical: Diabetes Type 1, Other Family History - Cardiac/Respiratory: Asthma, Bronchitis, Cardiac Arrest, Coronary Heart Disease, COPD, Hypertension, Pneumonia Mother Family History - Medical: No pertinent hx - Social History Living Situations: home Abuse History: Hx of Substance Use, Hx -Substance Use Tx, Hx-Community Resource Use Psych History: Psychiatric Hx, Hx of Anxiety, Hx of Depression, Hx of Suicide Attempt, Current tx/ever been on anti-depressants or anti-anxiety meds Does anyone smoke in the home?: Yes Smoking Status: Current every day smoker Alcohol Use: none Drug Use: benzodiazepine, cocaine, marijuana, other - Immunizations Immunizations Up to Date: Yes Hx Pneumococcal Vaccination: Yes History of Influenza Vaccine: Yes Physical Exam - Physical Exam General Appearance: Present: wd/wn, alert, anxious, crying Head Exam: Present: normal inspection Eye Exam: Normal inspection: bilateral - crying Respiratory: Present: no respiratory distress Neurological Exam: Present: alert, oriented Skin Exam: Present: normal color, warm/dry ED Progress - Vital Signs Patient's Vital Signs:: I have reviewed the patient's vital signs. Vital Signs: Vital Signs 12/23/16 17:08 Temperature 36.0 C L Pulse Rate 111 H Respiratory 24 H Rate Blood Pressure 149/95 O2 Sat by Pulse 96 Oximetry - Progress/Reassessment Chief Complaint: Anxiety Progress Note-Subjective: 12/23/16 17:48 patient states that she is ready to go home Departure Clinical Impression: Anxiety disorder - Departure Disposition: Home self-care Condition: Fair Instructions: Panic Attacks, [id number] Additional Instructions: call your doctor for follow up
== END 2016-12-23 17:48 | disposition home or self-care (01) ==
LOC: ER 17:05
DX: F41.9 Anxiety disorder, unspecified (principal); Z87.442 Personal history of urinary calculi; F17.200 Nicotine dependence, unspecified, uncomplicated; K21.9 Gastro-esophageal reflux disease without esophagitis; F32.9 Major depressive disorder, single episode, unspecified

== ENCOUNTER 2016-12-31 09:51 | Emergency (ER) | payer MEDICARE, OTHER ==
[2016-12-31] MEDS ORDERED: LORazepam 2 MG/ML DISP.SYRIN IM ONE ×2 (10:34→16:33)
[2016-12-31 10:51] LABS: Hematocrit 46.4 % (37.0-47.0); Hemoglobin 15.6 gm/dL (12.5-16.0); Mean Cell Volume 88.4 fl (78-100); Mean Corpuscular Hemoglobin 29.7 pg (27-31); Mean Corpuscular Hgb Conc 33.6 g/dl (32-36); Mean Platelet Volume 10.9 fl (6.0-9.5); Neutrophil # 6.2 K/mm3 (1.3-6.0); Neutrophil % 71.8 % (42-75.0); Platelet Count 187 K/mm3 (150-450); Red Blood Count 5.25 M/mm3 (4.2-5.4); White Blood Count 8.7 K/mm3 (4.0-10.5)
[2016-12-31] MEDS ORDERED: LORazepam 2 MG/ML DISP.SYRIN ONE ×2 (10:53→16:48)
[2016-12-31 11:15] LABS: BUN/Creatinine Ratio 14.3 (9.0-21.6); Blood Urea Nitrogen 14 mg/dL (3-23); Glucose * 109 mg/dL (70-110); Potassium 3.7 mmol/L (3.4-4.6); Sodium 140 mmol/L (132-142)
[2016-12-31 11:16] LABS: ALT 29 U/L (19-67); AST 35 U/L (0-48); Albumin * 4.3 gm/dl (3.4-5.0); Alkaline Phosphatase * 83 U/L (50-170); Anion Gap 18.5 mmol/L (6.8-13.8); Bilirubin, Total 0.7 mg/dL (0.0-1.1); Ca. Corrected For Albumin 9.3 mg/dL (8.4-10.2); Calcium * 9.9 mg/dL (7.9-10.9); Carbon Dioxide 22.2 mmol/L (24-32.6); Chloride 103 mmol/L (97-106); Salicylate 4.1 mg/dL (2.8-20.0); TSH * 0.437 uIU/mL (0.358-3.74); Total Protein 8.2 gm/dL (6.2-8.2)
--- OUTSIDE RECORDS SUMMARY | 2016-12-31 11:34 | XMS REPORT | Clinical Summary ---
:1955 Demographics Address [address] [place] [address] Home Phone Home Phone Home Phone Home Phone Preferred Language Czech Marital Status Not or Mormonism Affiliation Unknown Race White Ethnic Group Not or Author Organization [employer] [place] [address] Care Team Providers Name Role Phone Unavailable Primary Care Provider Unavailable Source Comments This disclosure is being made pursuant to the [email or web address] program and maynot contain all information available regarding this patient.[employer] Allergies Active Allergy Reactions Severity Noted Date [...] 1977 Colonoscopy 2006 Well Adult Visit 2006 Zoster Vaccine 60+ 2016 INFLUENZA IMMUNIZATION (#1) 2017 Results Not on filefrom Last 3 Months Insurance Payer Benefit Plan / Subscriber ID Type Phone Address Group MEDICARE MEDICARE A AND B [id number] [phone] [place] [address] MEDICAID MEDICAID [place] PLAN [id number] [phone] [place] [address] [facility] [id number] Managed [phone] MEDICAID [facility] [address] [place], [place]ID [id number] Home: [address] [phone] [place] [address] [place] [address] RON-IZZY CHEATHAM Personal/Family Self 1955 Home: [address] [phone] [place] [address] [place] [address] ELIZABETH CHEATHAM Personal/Family Self 1955 Home: [address] [phone] [place] [address] [place] [address]
[2016-12-31 12:23] LABS: Urine Bilirubin Negative (NEGATIVE); Urine Blood 50 /ul (NEGATIVE); Urine Ketone Negative (NEGATIVE); Urine Nitrite Negative (NEGATIVE); Urine Protein Negative (NEGATIVE); Urine Specific Gravity <=1.005 SP.GR. (1.005-1.010); Urine Urobilinogen Normal (NORMAL)
[2016-12-31 12:32] LABS: Urine Appearance Clear; Urine Bacteria 1+; Urine Color Yellow
[2016-12-31 12:44] LABS: Urine Barbiturate Negative (NEGATIVE); Urine Opiates Negative (NEGATIVE); Urine PCP Negative (NEGATIVE)
[2016-12-31 12:45] LABS: Cocaine Ur Positive (NEGATIVE); Urine Benzodiazepines Positive (NEGATIVE); Urine THC Positive (NEGATIVE)
--- NOTE | 2016-12-31 15:42 | ERNOTE ---
Psychological HPI - Date Date of Service: 12/31/16 - General Chief Complaint: Psychiatric Problem Source: Reports: patient Exam Limitations: Reports: no limitations - Immun/Allergies/Home Medications Allergies/Adverse Reactions: Allergies propranolol [Propranolol] Allergy (Severe, Verified 12/31/16 10:25) Anaphylaxis rash swelling gabapentin [From Neurontin] Allergy (Unknown, Verified 12/31/16 10:25) ampicillin [Ampicillin] Adverse Reaction (Intermediate, Verified 12/31/16 10:25) Itching, rash, swelling aspirin Adverse Reaction (Intermediate, Verified 12/31/16 10:25) Shortness of Breath NSAIDS (Non-Steroidal Anti-Inflamma Adverse Reaction (Intermediate, Verified 04/08 10:25) Shortness of Breath prochlorperazine maleate [From Compazine] Adverse Reaction (Intermediate, Verified 12/31/16 10:25) Itching, rash, swelling codeine [Codeine] Adverse Reaction (Mild, Verified 12/31/16 10:25) Itching, rash, swelling diphenhydramine HCl [From Benadryl] Adverse Reaction (Mild, Verified 12/31/16 10 :25) hyper doxycycline Adverse Reaction (Mild, Verified 12/31/16 10:25) Itching ketorolac tromethamine [From Toradol] Adverse Reaction (Mild, Verified 12/31/16 10:25) rash metoclopramide HCl [From Reglan] Adverse Reaction (Mild, Verified 12/31/16 10:25 ) Itching Penicillins Adverse Reaction (Mild, Verified 12/31/16 10:25) Itching prochlorperazine edisylate [From Compazine] Adverse Reaction (Mild, Verified 04/08 10:25) Itching, rash, swelling promethazine HCl [From Phenergan] Adverse Reaction (Mild, Verified 12/31/16 10: 25) Itching Sulfa (Sulfonamide Antibiotics) [Sulfa(Sulfonamide Antibiotics)] Adverse Reaction (Mild, Verified 12/31/16 10:25) Itching trazadone Allergy (Severe, Uncoded 12/31/16 10:25) Anaphylaxis Home Medications: HOME MEDICATIONS Alprazolam 2 mg PO HS 10/02/16 [Last Taken Unknown] Lamotrigine [Lamictal] 100 mg PO DAILY 10/02/16 [Last Taken Unknown] Escitalopram Oxalate [Lexapro] 10 mg PO DAILY 11/28/16 [Last Taken Unknown] hydrOXYzine PAMOATE [Vistaril] 50 mg PO Q4H PRN #30 cap 11/28/16 [Last Taken Unknown] Alprazolam 1 mg PO BID #10 tablet 12/01/16 [Last Taken Unknown] Ziprasidone HCl [Geodon] 60 mg PO BID 12/18/16 [Last Taken Unknown] Ondansetron [Zofran Odt] 4 mg PO Q4H PRN #10 tab 12/21/16 [Last Taken Unknown] Pantoprazole Sodium [Protonix] 40 mg PO DAILY #30 tablet. 12/21/16 [Last Taken Unknown] - History of Present Illness Narrative: patient present to ed claiming to be sucidal. lots of stress lately and overdosed on meds, wasa [facility], since then has had increasing depression Arrived by: Reports: private car Onset/duration: Reports: gradual onset Intent: Reports: suicide, prior thoughts of suicide, wants to escape Mechanism: Reports: overdose Situational Problems: Reports: other Associated Symptoms: Reports: depressed, frustrated, suicidal thoughts, specific plan Prior Treament: Reports: recently seen, treated by physician, recently hospitalized Review of Systems - Review of Systems Constitutional: Present: See HPI, weakness, fatigue, malaise EYE: Present: no symptoms reported ENT: Present: no symptoms reported Respiratory: Present: no symptoms reported Cardiology: Present: no symptoms reported Gastrointestinal/Abdominal: Present: no symptoms reported Genitourinary: Present: no symptoms reported Musculoskeletal: Present: no symptoms reported Skin: Present: no symptoms reported Neurological: Present: no symptoms reported Endocrine: Present: no symptoms reported Hematologic/Lymphatic: Present: no symptoms reported Psych: Present: See HPI, depressed, emotional problems All Other Systems: All systems neg except as marked - Patient's Past Medical History Patient History - Medical: Anxiety, Arthritis, Chronic Pain, Depression, GERD, Kidney stone, Migraines, Other Patient History - Cardiac/Respiratory: Asthma, Hypertension, Hyperlipidemia, Sleep Apnea Patient History - Cancer: No Hx of Cancer Patient History - Surgical Procedures: Appendectomy, Cholecystectomy, , Hysterectomy, Other Patient History - Other: None - Family History Family History:: no untoward family reactions to anesthesia, no familial bleeding tendencies - Family History Father Family History - Medical: Diabetes Type 1, Other Family History - Cardiac/Respiratory: Asthma, Bronchitis, Cardiac Arrest, Coronary Heart Disease, COPD, Hypertension, Pneumonia Mother Family History - Medical: No pertinent hx Family History - Cardiac/Respiratory: History Unknown Family History - Cancer: No pertinent family hx - Social History Living Situations: home Abuse History: Hx of Substance Use, Hx -Substance Use Tx, Hx-Community Resource Use Psych History: Psychiatric Hx, Hx of Anxiety, Hx of Depression, Hx of Suicide Attempt, Current tx/ever been on anti-depressants or anti-anxiety meds Does anyone smoke in the home?: Yes Smoking Status: Current every day smoker Have you smoked in the past 12 months: Yes Do you dip or chew tobacco: No Patient requests Smoking Cessation Consult: No Initiate information on Smoking Cessation: No Alcohol Use: none Drug Use: benzodiazepine, cocaine, marijuana, other - Immunizations Immunizations Up to Date: Yes Hx Pneumococcal Vaccination: Yes History of Influenza Vaccine: Yes Physical Exam - Physical Exam General Appearance: Present: no apparent distress, mild distress, moderate distress, severe distress, anxious Head Exam: Present: normal inspection, no evidence of injury Eye Exam: Normal inspection: bilateral, PERRL: bilateral, EOMI: bilateral Ears, Nose, Throat: Present: normal ENT inspection Neck: Present: normal inspection, nontender Respiratory: Present: no respiratory distress, normal breath sounds, no accessory muscle use, chest nontender, lungs clear Cardiovascular/Chest: Present: regular rate, rhythm, no murmur, normal peripheral pulses Peripheral Pulses: N=norm/S=strong/W=weak/B=bound/A=absent: Carotid (R): Normal , Carotid (L): Normal, Radial (R): Normal, Radial (L): Normal, Femoral (R): Normal, Femoral (L): Normal, Dorsalis-pedis (R): Normal Gastrointestinal/Abdominal: Present: normal bowel sounds, nontender, nondistended, soft, no organomegaly Back Exam: Present: normal inspection, normal range of motion, no CVA tenderness , no vertebral tenderness Extremity Exam: Present: normal inspection, non-tender, normal range of motion, no edema Neurological Exam: Present: alert, oriented, normal mood/affect, no motor/ sensory deficits DTR: N=norm/NB=norm/brisk/A=abs/DD=dull/dimin/HC=hyperactive: Bicep (R): Normal , Bicep (L): Normal, Tricep (R): Normal, Tricep (L): Normal, Knee (R): Normal, Knee (L): Normal, Ankle (R): Normal, Ankle (L): Normal Skin Exam: Present: normal color, warm/dry Lymphatic Exam: Present: no adenopathy ED Progress - Vital Signs Vital Signs: Vital Signs 12/31/16 12/31/16 10:20 13:13 Temperature 36.9 C 36.9 C Pulse Rate 77 76 Respiratory 12 12 Rate Blood Pressure 189/117 187/98 O2 Sat by Pulse 97 97 Oximetry - Progress/Reassessment Chief Complaint: Psychiatric Problem Plan - Plan Plan: patient to be transferred to [facility] on voluntary basis for psychiatric services Departure Clinical Impression: Suicidal ideation - Departure Disposition: Other health care facility Condition: Fair
[2016-12-31] MEDS ORDERED: LORazepam 1 MG TABLET PO ONE (23:27)
[2016-12-31] MEDS ORDERED: LORazepam 1 MG TABLET ONE (23:35)
[2017-01-01] MEDS ORDERED: ACETAMINOPHEN 325 MG TABLET PO ONE (06:50)
[2017-01-01] MEDS ORDERED: LORazepam 1 MG TABLET PO ONE (06:50)
[2017-01-01] MEDS ORDERED: LORazepam 1 MG TABLET ONE (06:51)
[2017-01-01] MEDS ORDERED: ACETAMINOPHEN 325 MG TABLET ONE (06:51)
[2017-01-01] MEDS ORDERED: LORazepam 2 MG/ML DISP.SYRIN IM ONE (11:15)
[2017-01-01] MEDS ORDERED: LORazepam 2 MG/ML DISP.SYRIN ONE (11:18)
[2017-01-01 11:21] VITALS: BP 112/72
== END 2017-01-01 12:01 | disposition short-term general hospital (02) ==
LOC: ER 09:51
DX: R45.851 Suicidal ideations (principal); F41.9 Anxiety disorder, unspecified; F32.9 Major depressive disorder, single episode, unspecified; K21.9 Gastro-esophageal reflux disease without esophagitis; Z79.899 Other long term (current) drug therapy
CPT/HCPCS: 36415; 80053; 80307; 81001; 84443; 85025; 87086; 93005; 96372; 99283; G0480; G0481

== ENCOUNTER 2017-01-05 17:33 | Emergency (ER) | payer MEDICARE, OTHER ==
--- OUTSIDE RECORDS SUMMARY | 2017-01-05 18:07 | XMS REPORT | Clinical Summary ---
:1955 Demographics Address [address] [place] [address] Home Phone Home Phone Home Phone Home Phone Preferred Language Latvian Marital Status Not or Evangelical Affiliation Unknown Race White Ethnic Group Not or Author Organization [facility] [place] [address] Care Team Providers Name Role Phone Unavailable Primary Care Provider Unavailable Source Comments This disclosure is being made pursuant to the [employer] program and maynot contain all information available regarding this patient.[facility] Allergies Active Allergy Reactions Severity Noted Date [...] (1 - Tdap) 01/01/1976 Pap Smear 1977 Colon CA Screening-Colonoscopy 2006 Well Adult Visit 2006 Zoster Vaccine 60+ 2016 INFLUENZA IMMUNIZATION (#1) 2017 Results Not on filefrom Last 3 Months Insurance Payer Benefit Plan / Subscriber ID Type Phone Address Group MEDICARE MEDICARE A AND B [id number] [phone] [address] [place] [address] MEDICAID [place] [id number] [phone] [phone] [place] [address] [facility] [id number] Man[facility] [phone] [address] [place] [address] [place], [place] [id number] Home: [address] [phone] [place] [address] [place] [address] RON-IZZY REYES Personal/Family Self 1955 [address] [phone] [place] [address] [place] [address] ELIZABETH REYES Personal/Family Self 1955 [address]: [address] [phone] [place] [address] [place] [address]
[2017-01-05] MEDS ORDERED: HALOPERIDOL LACTATE 5 MG/ML VIAL IV ONE (18:13)
[2017-01-05] MEDS ORDERED: LORazepam 2 MG/ML DISP.SYRIN IV ONE (18:13)
[2017-01-05] MEDS ORDERED: diphenhydrAMINE HCL 50 MG/ML VIAL IV ONE ×2 (18:13)
[2017-01-05] MEDS ORDERED: diphenhydrAMINE HCL 50 MG/ML VIAL ONE (18:17)
--- NOTE | 2017-01-05 18:17 | ERNOTE ---
<Tito Howell - Last Filed: 01/05/17 19:59> Medical Problem HPI - General Chief Complaint: Drug Overdose Time Seen by Provider: 01/05/17 17:57 Source: patient, EMS Exam Limitations: no limitations - Immun/Allergies/Home Medications Immunizations: IMMUNIZATION HX Immunizations Up to Date Yes History of Influenza Vaccine Yes Hx Pneumococcal Vaccination No Allergies/Adverse Reactions: Allergies propranolol [Propranolol] Allergy (Severe, Verified 01/05/17 17:51) Anaphylaxis rash swelling gabapentin [From Neurontin] Allergy (Unknown, Verified 01/05/17 17:51) ampicillin [Ampicillin] Adverse Reaction (Intermediate, Verified 01/05/17 17:51) Itching, rash, swelling aspirin Adverse Reaction (Intermediate, Verified 01/05/17 17:51) Shortness of Breath NSAIDS (Non-Steroidal Anti-Inflamma Adverse Reaction (Intermediate, Verified 17:51) Shortness of Breath prochlorperazine maleate [From Compazine] Adverse Reaction (Intermediate, Verified 01/05/17 17:51) Itching, rash, swelling codeine [Codeine] Adverse Reaction (Mild, Verified 01/05/17 17:51) Itching, rash, swelling diphenhydramine HCl [From Benadryl] Adverse Reaction (Mild, Verified 01/05/17 17 :51) hyper doxycycline Adverse Reaction (Mild, Verified 01/05/17 17:51) Itching ketorolac tromethamine [From Toradol] Adverse Reaction (Mild, Verified 01/05/17 17:51) rash metoclopramide HCl [From Reglan] Adverse Reaction (Mild, Verified 01/05/17 17:51 ) Itching Penicillins Adverse Reaction (Mild, Verified 01/05/17 17:51) Itching prochlorperazine edisylate [From Compazine] Adverse Reaction (Mild, Verified 17:51) Itching, rash, swelling promethazine HCl [From Phenergan] Adverse Reaction (Mild, Verified 01/05/17 17: 51) Itching Sulfa (Sulfonamide Antibiotics) [Sulfa(Sulfonamide Antibiotics)] Adverse Reaction (Mild, Verified 01/05/17 17:51) Itching trazadone Allergy (Severe, Uncoded 01/05/17 17:51) Anaphylaxis Home Medications: HOME MEDICATIONS Alprazolam 2 mg PO TID 10/02/16 [Last Taken Unknown] Lamotrigine [Lamictal] 100 mg PO DAILY 10/02/16 [Last Taken Unknown] Escitalopram Oxalate [Lexapro] 10 mg PO DAILY 11/28/16 [Last Taken Unknown] Alprazolam 1 mg PO BID #10 tablet 12/01/16 [Last Taken Unknown] Pantoprazole Sodium [Protonix] 40 mg PO DAILY #30 tablet. 12/21/16 [Last Taken Unknown] - History of Present History Narrative: Patient was discharged from [facility] in [place] yesterday and was frustrated because she felt she was discharged home soon so she took 1 g of Lamotrigine so that [place] could [place] asleep [place]. Patient admits to having chronic suicidal thoughts and has had frequent admissions and multiple overdoses in the past. Timing: constant Severity: mild Review of Systems - Review of Systems Constitutional: Present: See HPI EYE: Present: no symptoms reported ENT: Present: no symptoms reported Respiratory: Present: no symptoms reported Cardiology: Present: no symptoms reported Gastrointestinal/Abdominal: Present: no symptoms reported Genitourinary: Present: no symptoms reported Musculoskeletal: Present: no symptoms reported Skin: Present: no symptoms reported Neurological: Present: no symptoms reported Endocrine: Present: no symptoms reported Hematologic/Lymphatic: Present: no symptoms reported Psych: Present: emotional problems, other - patient just being chronically suicidal - Patient's Past Medical History Patient History - Medical: Anxiety, Arthritis, Chronic Pain, Depression, GERD, Kidney stone, Migraines, Other - chronic suicidal ideation Patient History - Cardiac/Respiratory: Asthma, Hypertension, Hyperlipidemia, Sleep Apnea Patient History - Cancer: No Hx of Cancer Patient History - Surgical Procedures: Appendectomy, Cholecystectomy, , Hysterectomy, Other Patient History - Other: None - Family History Father Family History - Medical: Diabetes Type 1, Other Family History - Cardiac/Respiratory: Asthma, Bronchitis, Cardiac Arrest, Coronary Heart Disease, COPD, Hypertension, Pneumonia Mother Family History - Medical: No pertinent hx Family History - Cardiac/Respiratory: History Unknown Family History - Cancer: No pertinent family hx - Social History Living Situations: other Abuse History: Hx of Substance Use, Hx -Substance Use Tx, Hx-Community Resource Use Psych History: Psychiatric Hx, Hx of Anxiety, Hx of Depression, Hx of Suicide Attempt, Current tx/ever been on anti-depressants or anti-anxiety meds Does anyone smoke in the home?: Yes Smoking Status: Current every day smoker Have you smoked in the past 12 months: Yes Alcohol Use: none Drug Use: benzodiazepine, cocaine, marijuana, other - Immunizations Immunizations Up to Date: Yes Hx Pneumococcal Vaccination: No History of Influenza Vaccine: Yes Physical Exam - Physical Exam General Appearance: Present: wd/wn, alert, moderate distress - mostly the patient is profoundly anxious and having a panic attack Head Exam: Present: normal inspection, no evidence of injury Eye Exam: Normal inspection: bilateral, PERRL: bilateral Ears, Nose, Throat: Present: normal ENT inspection, H, normal pharynx Neck: Present: normal inspection, nontender Respiratory: Present: no respiratory distress, normal breath sounds, no accessory muscle use, chest nontender, lungs clear Cardiovascular/Chest: Present: regular rate, rhythm, no murmur, normal peripheral pulses Gastrointestinal/Abdominal: Present: normal bowel sounds, nontender, nondistended, soft, no organomegaly Rectal Exam: Present: deferred Back Exam: Present: normal inspection, normal range of motion Extremity Exam: Present: normal inspection, non-tender, no edema, normal range of motion Neurological Exam: Present: alert, oriented, other - severe panic attack Skin Exam: Present: normal color, warm/dry Lymphatic Exam: Present: no adenopathy ED Progress - Results and Orders Patient's Lab Results:: I have reviewed the patient's lab results. - Vital Signs Patient's Vital Signs:: I have reviewed the patient's vital signs. Vital Signs: Vital Signs 01/05/17 17:43 Temperature 37.5 C Pulse Rate 98 Respiratory 24 H Rate Blood Pressure 153/78 O2 Sat by Pulse 96 Oximetry - EKG EKG: NSR EKG read: Interp. by wi - Progress/Reassessment Chief Complaint: Drug Overdose - Transfer of Care Physician Sign Out: Tito Howell Receiving Physician: Dylan Yanez Departure - Departure Clinical Impression: Suicidal behavior Qualifiers: Attempted self-injury: with attempted self-injury Qualified Code(s): T14.91 - Suicide attempt <Dylan Yanez - Last Filed: 01/06/17 07:28> Medical Problem HPI - Immun/Allergies/Home Medications Immunizations: IMMUNIZATION HX Immunizations Up to Date Yes History of Influenza Vaccine Yes Hx Pneumococcal Vaccination No ED Progress - Results and Orders Patient's Lab Results:: I have reviewed the patient's lab results. Results and Orders: Laboratory Tests 01/05/17 01/05/17 01/05/17 18:15 18:35 18:35 WBC 8.5 Hgb 13.6 Hct 39.6 Plt Count 175 pCO2 31.4 L pO2 72.0 L HCO3 23.3 Total CO2 24.2 H Base Excess 0.7 ABG pH 7.49 H ABG O2 Sat (Measured) 95.7 Sodium 142 Potassium 4.7 H D Chloride 106 Carbon Dioxide 24.1 Anion Gap 16.6 H BUN 17 Creatinine 1.01 Random Glucose 83 Calcium 9.6 Magnesium 2.0 Total Bilirubin 0.3 AST 28 ALT 30 Alkaline Phosphatase 74 Creatine Kinase 105 Total Protein 7.3 Albumin 4.0 Vitamin B12 Folate Salicylates 3.4 Urine Opiates Screen Acetaminophen 6.2 L Barbiturate Screen Ur Phencyclidine Scrn Urine Amphetamine U Benzodiazepines Scrn Urine Cocaine Screen Urine Marijuana (THC) Ethyl Alcohol Less than 3.0 01/05/17 01/05/17 18:35 22:55 WBC Hgb Hct Plt Count pCO2 pO2 HCO3 Total CO2 Base Excess ABG pH ABG O2 Sat (Measured) Sodium Potassium Chloride Carbon Dioxide Anion Gap BUN Creatinine Random Glucose Calcium Magnesium Total Bilirubin AST ALT Alkaline Phosphatase Creatine Kinase Total Protein Albumin Vitamin B12 430 Folate 5.6 Salicylates Urine Opiates Screen Negative Acetaminophen 2.7 L Barbiturate Screen Negative Ur Phencyclidine Scrn Negative Urine Amphetamine Negative U Benzodiazepines Scrn Positive H Urine Cocaine Screen Positive H Urine Marijuana (THC) Positive H Ethyl Alcohol - Vital Signs Patient's Vital Signs:: I have reviewed the patient's vital signs. Vital Signs: Vital Signs 01/05/17 01/05/17 01/05/17 17:43 18:17 18:20 Temperature 37.5 C Pulse Rate 98 84 96 Respiratory 24 H 16 Rate Blood Pressure 153/78 155/92 O2 Sat by Pulse 96 96 Oximetry 01/05/17 01/05/17 01/05/17 18:39 19:02 19:27 Temperature Pulse Rate 79 76 72 Respiratory 18 20 18 Rate Blood Pressure 154/85 141/93 139/71 O2 Sat by Pulse 96 96 96 Oximetry 01/05/17 01/05/17 01/05/17 19:47 20:09 20:28 Temperature 37.3 C 37.1 C Pulse Rate 60 60 62 Respiratory 18 16 16 Rate Blood Pressure 135/81 137/78 130/68 O2 Sat by Pulse 96 96 96 Oximetry 01/05/17 01/05/17 01/05/17 20:48 21:22 22:01 Temperature 37.1 C Pulse Rate 66 68 68 Respiratory 18 16 16 Rate Blood Pressure 140/69 132/75 129/77 O2 Sat by Pulse 96 96 96 Oximetry 01/05/17 01/05/17 01/05/17 22:31 22:54 23:35 Temperature 37.0 C 37.0 C Pulse Rate 64 60 72 Respiratory 18 18 16 Rate Blood Pressure 121/70 125/72 118/66 O2 Sat by Pulse 96 97 96 Oximetry 01/06/17 00:09 Temperature 37.0 C Pulse Rate 69 Respiratory 18 Rate Blood Pressure 133/70 O2 Sat by Pulse 97 Oximetry - Progress/Reassessment Progress Note-Subjective: 01/06/17 06:40 Pt mostly slept throughout the night. Awakened around midnight with headache and was given acetaminophen. Awoke around 03:00 and was anxious, was given 0.5 mg xanax po. At this time she is asking for something for both pain and anxiety. I did talk to her about the difficulty we are having in placement. Benadryl 25 mg IV, acetaminophen 650 mg and xanax 0.5 mg given 01/06/17 06:56 - Transfer of Care Physician Sign Out: Dylan Yanez Receiving Physician: Gigi Flores - awaiting placement Expected Disposition: Transfer
[2017-01-05] MEDS ORDERED: HALOPERIDOL LACTATE 5 MG/ML VIAL ONE (18:18)
[2017-01-05] MEDS ORDERED: LORazepam 2 MG/ML DISP.SYRIN ONE (18:18)
[2017-01-05 18:30] LABS: Hematocrit 39.6 % (37.0-47.0); Hemoglobin 13.6 gm/dL (12.5-16.0); Mean Corpuscular Hemoglobin 29.9 pg (27-31); Mean Corpuscular Hgb Conc 34.3 g/dl (32-36); Neutrophil # 5.9 K/mm3 (1.3-6.0); Neutrophil % 68.8 % (42-75.0); Platelet Count 175 K/mm3 (150-450); Red Blood Count 4.55 M/mm3 (4.2-5.4); Red Cell Distribution Width 13.5 % (11.5-14.0); White Blood Count 8.5 K/mm3 (4.0-10.5)
[2017-01-05 18:50] LABS: ALT 30 U/L (19-67); AST 28 U/L (0-48); Acetaminophen * 6.2 mcg/mL (10.0-30.0); Alkaline Phosphatase * 74 U/L (50-170); Anion Gap 16.6 mmol/L (6.8-13.8); BUN/Creatinine Ratio 16.8 (9.0-21.6); Bilirubin, Total 0.3 mg/dL (0.0-1.1); Blood Urea Nitrogen 17 mg/dL (3-23); CK Total * 105 U/L (0-259); Ca. Corrected For Albumin 9.3 mg/dL (8.4-10.2); Calcium * 9.6 mg/dL (7.9-10.9); Carbon Dioxide 24.1 mmol/L (24-32.6); Chloride 106 mmol/L (97-106); Glucose * 83 mg/dL (70-110); Potassium 4.7 mmol/L (3.4-4.6); Salicylate 3.4 mg/dL (2.8-20.0); Sodium 142 mmol/L (132-142); Total Protein 7.3 gm/dL (6.2-8.2)
[2017-01-05 19:05] LABS: Cocaine Ur Positive (NEGATIVE); Urine Barbiturate Negative (NEGATIVE); Urine Benzodiazepines Positive (NEGATIVE); Urine Opiates Negative (NEGATIVE); Urine PCP Negative (NEGATIVE); Urine THC Positive (NEGATIVE)
[2017-01-05 23:34] LABS: Acetaminophen * 2.7 mcg/mL (10.0-30.0); Folate 5.6 ng/mL (>5.4)
[2017-01-06] MEDS ORDERED: ACETAMINOPHEN 325 MG TABLET ONE ×2 (00:02→07:01)
[2017-01-06] MEDS ORDERED: ALPRAZolam 0.25 MG TABLET PO ONE ×2 (03:09→06:54)
[2017-01-06] MEDS ORDERED: ALPRAZolam 0.25 MG TABLET ONE (03:15)
[2017-01-06] MEDS ORDERED: diphenhydrAMINE HCL 50 MG/ML VIAL IV ONE (06:54)
[2017-01-06] MEDS ORDERED: ACETAMINOPHEN 325 MG TABLET PO ONE ×2 (06:54)
[2017-01-06] MEDS ORDERED: diphenhydrAMINE HCL 50 MG/ML VIAL ONE (07:01)
[2017-01-06] MEDS ORDERED: LORazepam 1 MG TABLET ONE (07:01)
[2017-01-06 10:10] VITALS: BP 138/79
[2017-01-06] MEDS ORDERED: LORazepam 2 MG/ML DISP.SYRIN IV ONE (10:51)
[2017-01-06] MEDS ORDERED: LORazepam 2 MG/ML DISP.SYRIN ONE (10:52)
== END 2017-01-06 10:40 | disposition short-term general hospital (02) ==
LOC: ER 17:33
DX: T14.91 Suicide attempt (principal); F17.200 Nicotine dependence, unspecified, uncomplicated
CPT/HCPCS: 36415; 36600; 51701; 80053; 80307; 82550; 82607; 82746; 82803; 83735; 85025; 96374; 96375; 99285; G0480; G0481

== ENCOUNTER 2017-04-18 16:56 | Emergency (ER) | payer MEDICARE, OTHER ==
[2017-04-18 17:11] VITALS: BP 155/75
[2017-04-18] MEDS ORDERED: NORMAL SALINE 1,000 ML IV ONE (17:22)
[2017-04-18] MEDS ORDERED: HALOPERIDOL LACTATE 5 MG/ML VIAL IV ONE (17:24)
[2017-04-18] MEDS ORDERED: BENZTROPINE MESYLATE 1 MG/ML AMPUL IV ONE (17:30)
[2017-04-18] MEDS ORDERED: HALOPERIDOL LACTATE 5 MG/ML VIAL ONE (17:38)
[2017-04-18] MEDS ORDERED: HALOPERIDOL LACTATE 5 MG/ML VIAL IM ONE (17:41)
[2017-04-18] MEDS ORDERED: BENZTROPINE MESYLATE 1 MG/ML AMPUL IM ONE (17:45)
[2017-04-18] MEDS ORDERED: hydrOXYzine PAMOATE 25 MG CAPSULE PO ONE (18:02)
[2017-04-18] MEDS ORDERED: hydrOXYzine PAMOATE 25 MG CAPSULE ONE (18:03)
--- NOTE | 2017-04-18 18:07 | ERNOTE ---
Headache ER HPI - General Presenting Symptoms: headache Time Seen by Provider: 04/18/17 17:15 Source: patient Exam Limitations: no limitations - Immun/Allergies/Home Medications Immunizations: IMMUNIZATION HX Immunizations Up to Date Yes History of Influenza Vaccine Yes Hx Pneumococcal Vaccination No Allergies/Adverse Reactions: Allergies propranolol [Propranolol] Allergy (Severe, Verified 04/18/17 17:11) Anaphylaxis rash swelling gabapentin [From Neurontin] Allergy (Unknown, Verified 04/18/17 17:11) ampicillin [Ampicillin] Adverse Reaction (Intermediate, Verified 04/18/17 17:11) Itching, rash, swelling aspirin Adverse Reaction (Intermediate, Verified 04/18/17 17:11) Shortness of Breath NSAIDS (Non-Steroidal Anti-Inflamma Adverse Reaction (Intermediate, Verified 17:11) Shortness of Breath prochlorperazine maleate [From Compazine] Adverse Reaction (Intermediate, Verified 04/18/17 17:11) Itching, rash, swelling codeine [Codeine] Adverse Reaction (Mild, Verified 04/18/17 17:11) Itching, rash, swelling diphenhydramine HCl [From Benadryl] Adverse Reaction (Mild, Verified 04/18/17 17 :11) hyper doxycycline Adverse Reaction (Mild, Verified 04/18/17 17:11) Itching ketorolac tromethamine [From Toradol] Adverse Reaction (Mild, Verified 04/18/17 17:11) rash metoclopramide HCl [From Reglan] Adverse Reaction (Mild, Verified 04/18/17 17:11 ) Itching Penicillins Adverse Reaction (Mild, Verified 04/18/17 17:11) Itching prochlorperazine edisylate [From Compazine] Adverse Reaction (Mild, Verified 17:11) Itching, rash, swelling promethazine HCl [From Phenergan] Adverse Reaction (Mild, Verified 04/18/17 17: 11) Itching Sulfa (Sulfonamide Antibiotics) [Sulfa(Sulfonamide Antibiotics)] Adverse Reaction (Mild, Verified 04/18/17 17:11) Itching trazadone Allergy (Severe, Uncoded 04/18/17 17:11) Anaphylaxis Home Medications: HOME MEDICATIONS Lamotrigine [Lamictal] 100 mg PO DAILY 10/02/16 [Last Taken Unknown] Escitalopram Oxalate [Lexapro] 10 mg PO DAILY 11/28/16 [Last Taken Unknown] Alprazolam 1 mg PO TID 04/18/17 [Last Taken Unknown] - Pain Pain Score: 8 - History of Present Illness Narrative: Patient presents with another migraine headache. Patient has profound long- standing migraine headaches and has been on a variety of medications, however she has roughly 119 different diagnoses. Timing of Headache: gradual, constant Context Headache: Present: other - chronic recurrent migraines Quality: Present: throbbing Severity Maximum: Present: moderate Severity-Currently: Present: moderate Headache frequency: Present: chronic headaches Modifying Factors - (Improves): Reports: medication - some medications Associated Symptoms: Reports: nausea Exacerbated by:: Reports: light, noise Prior Treament: Reports: recently seen, treated by physician, similar symptoms before Review of Systems - Review of Systems Constitutional: Present: See HPI EYE: Present: no symptoms reported ENT: Present: no symptoms reported Respiratory: Present: no symptoms reported Cardiology: Present: no symptoms reported Gastrointestinal/Abdominal: Present: no symptoms reported Genitourinary: Present: no symptoms reported Musculoskeletal: Present: no symptoms reported Skin: Present: no symptoms reported Neurological: Present: See HPI Endocrine: Present: no symptoms reported Hematologic/Lymphatic: Present: no symptoms reported Psych: Present: no symptoms reported - Patient's Past Medical History Patient History - Medical: Anxiety, Arthritis, Chronic Pain, Depression, GERD, Kidney stone, Migraines, Other Patient History - Cardiac/Respiratory: Asthma, Hypertension, Hyperlipidemia, Sleep Apnea Patient History - Cancer: No Hx of Cancer Patient History - Surgical Procedures: Appendectomy, Cholecystectomy, , Hysterectomy, Other Patient History - Other: None LMP (females 10-50): post men - Family History Father Family History - Medical: Diabetes Type 1, Other Family History - Cardiac/Respiratory: Asthma, Bronchitis, Cardiac Arrest, Coronary Heart Disease, COPD, Hypertension, Pneumonia Mother Family History - Medical: No pertinent hx Family History - Cardiac/Respiratory: History Unknown Family History - Cancer: No pertinent family hx - Social History Living Situations: home Abuse History: Hx of Substance Use, Hx -Substance Use Tx, Hx-Community Resource Use Psych History: Psychiatric Hx, Hx of Anxiety, Hx of Depression, Hx of Suicide Attempt, Current tx/ever been on anti-depressants or anti-anxiety meds Smoking Status: Former smoker Alcohol Use: none Drug Use: none - Immunizations Immunizations Up to Date: Yes Hx Pneumococcal Vaccination: No History of Influenza Vaccine: Yes Physical Exam - Physical Exam General Appearance: Present: wd/wn, alert, moderate distress Head Exam: Present: normal inspection Eye Exam: Normal inspection: bilateral, PERRL: bilateral Ears, Nose, Throat: Present: normal ENT inspection, H, normal pharynx Neck: Present: normal inspection, nontender Respiratory: Present: no respiratory distress, normal breath sounds, no accessory muscle use, chest nontender, lungs clear Cardiovascular/Chest: Present: regular rate, rhythm, no murmur, normal peripheral pulses Gastrointestinal/Abdominal: Present: normal bowel sounds, nontender, nondistended, soft, no organomegaly Rectal Exam: Present: deferred Back Exam: Present: normal inspection, normal range of motion Extremity Exam: Present: normal inspection, non-tender, no edema, normal range of motion Neurological Exam: Present: alert, oriented, normal mood/affect, other - photophobia Skin Exam: Present: normal color, warm/dry Lymphatic Exam: Present: no adenopathy ED Progress - Vital Signs Patient's Vital Signs:: I have reviewed the patient's vital signs. Vital Signs: Vital Signs 04/18/17 17:00 Temperature 36.0 C L Pulse Rate 61 Respiratory 15 Rate Blood Pressure 155/75 O2 Sat by Pulse 98 Oximetry - Progress/Reassessment Chief Complaint: Headache Progress:: Improved Plan - Plan Plan: Patient was fairly adamant about stating that she wanted narcotics in the form of Nubain, as well as Phenergan that she is allergic to, to help resolve her headache. When she was told we do not give narcotics for chronic migraines she initially refused anything and then relented. Patient apparently feels somewhat better and is requesting to go home. Departure Clinical Impression: Headache, chronic migraine without aura Qualifiers: Status migrainosus presence: without status migrainosus Intractability: not intractable Qualified Code(s): G43.709 - Chronic migraine without aura, not intractable, without status migrainosus - Departure Disposition: Home self-care Condition: Good Instructions: Recurrent Migraine Headache, [id number] Referrals: Cecilio Peraza MD [Primary Care Provider] -
== END 2017-04-18 18:26 | disposition home or self-care (01) ==
LOC: ER 16:56
DX: G43.709 Chronic migraine without aura, not intractable, without status migrainosus (principal)

== ENCOUNTER 2017-04-21 10:55 | Emergency (ER) | payer MEDICARE, OTHER ==
[2017-04-21 11:24] VITALS: BP 123/77
[2017-04-21] MEDS ORDERED: ORPHENADRINE CITRATE 30 MG/ML VIAL IM ONE (13:00)
--- NOTE | 2017-04-21 13:07 | ERNOTE ---
Lower Extremity HPI - Narrative Date of Service: 04/21/17 - General Lower Extremities Pain: knee: right, ankle: left Time Seen by Provider: 04/21/17 12:47 Source: patient Exam Limitations: no limitations - Immun/Allergies/Home Medications Immunizations: IMMUNIZATION HX Immunizations Up to Date Yes History of Influenza Vaccine Yes Hx Pneumococcal Vaccination No Allergies/Adverse Reactions: Allergies Allergy/AdvReac Type Severity Reaction Status Date / Time propranolol [Propranolol] Allergy Severe Anaphylaxis Verified 04/18/17 17:11 gabapentin [From Neurontin] Allergy Unknown Verified 04/18/17 17:11 ampicillin [Ampicillin] AdvReac Intermediate Itching, Verified 04/18/17 17:11 rash, swelling aspirin AdvReac Intermediate Shortness Verified 04/18/17 17:11 of Breath NSAIDS (Non-Steroidal AdvReac Intermediate Shortness Verified 04/18/17 17:11 Anti-Inflamma of Breath prochlorperazine maleate AdvReac Intermediate Itching, Verified 04/18/17 17:11 [From Compazine] rash, swelling codeine [Codeine] AdvReac Mild Itching, Verified 04/18/17 17:11 rash, swelling diphenhydramine HCl AdvReac Mild hyper Verified 04/18/17 17:11 [From Benadryl] doxycycline AdvReac Mild Itching Verified 04/18/17 17:11 ketorolac tromethamine AdvReac Mild rash Verified 04/18/17 17:11 [From Toradol] metoclopramide HCl AdvReac Mild Itching Verified 04/18/17 17:11 [From Reglan] Penicillins AdvReac Mild Itching Verified 04/18/17 17:11 prochlorperazine edisylate AdvReac Mild Itching, Verified 04/18/17 17:11 [From Compazine] rash, swelling promethazine HCl AdvReac Mild Itching Verified 04/18/17 17:11 [From Phenergan] Sulfa (Sulfonamide AdvReac Mild Itching Verified 04/18/17 17:11 Antibiotics) [Sulfa(Sulfonamide Antibiotics)] trazadone Allergy Severe Anaphylaxis Uncoded 04/18/17 17:11 Home Medications: HOME MEDICATIONS Lamotrigine [Lamictal] 100 mg PO DAILY 10/02/16 [Last Taken Unknown] Escitalopram Oxalate [Lexapro] 10 mg PO DAILY 11/28/16 [Last Taken Unknown] Alprazolam 1 mg PO TID 04/18/17 [Last Taken Unknown] - History of Present Illness Narrative: Pt. comes in with c/o R knee pain and L ankle pain after falling down three stairs two days ago. Pt. denies any numbness, tingling, SOB, CP, NVD, alleviating factros despite taking tylenol, and statest aht movement and ambulation exacerbates the pain. Location of Incident: home Method of Injury: Reports: fell Reason for Fall: Reports: slipped Loss of Consciousness: Reports: no loss of consciousness Other Injuries: Reports: none Review of Systems - Review of Systems Constitutional: Present: no symptoms reported. Absent: recent illness, fever, chills, weakness, fatigue, malaise EYE: Present: no symptoms reported ENT: Present: no symptoms reported Respiratory: Present: no symptoms reported. Absent: shortness of breath, cough , wheezing Cardiology: Present: no symptoms reported. Absent: chest pain, palpitations, edema Gastrointestinal/Abdominal: Present: no symptoms reported Genitourinary: Present: no symptoms reported Musculoskeletal: Present: joint pain - R knee L ankle Skin: Present: no symptoms reported. Absent: rash, change in color Neurological: Present: no symptoms reported. Absent: headache, dizziness/light- headedness, numbness, tingling All Other Systems: All systems neg except as marked - Patient's Past Medical History Patient History - Medical: Anxiety, Arthritis, Chronic Pain, Depression, GERD, Kidney stone, Migraines Patient History - Cardiac/Respiratory: Asthma, Hypertension, Hyperlipidemia, Sleep Apnea Patient History - Cancer: No Hx of Cancer Patient History - Surgical Procedures: Appendectomy, Cholecystectomy, , Hysterectomy, Other Patient History - Other: None - Family History Father Family History - Medical: Diabetes Type 1, Other Family History - Cardiac/Respiratory: Asthma, Bronchitis, Cardiac Arrest, Coronary Heart Disease, COPD, Hypertension, Pneumonia Mother Family History - Medical: No pertinent hx Family History - Cardiac/Respiratory: History Unknown Family History - Cancer: No pertinent family hx - Social History Abuse History: Hx of Substance Use, Hx -Substance Use Tx, Hx-Community Resource Use Psych History: Psychiatric Hx, Hx of Anxiety, Hx of Depression, Hx of Suicide Attempt, Current tx/ever been on anti-depressants or anti-anxiety meds - Immunizations Immunizations Up to Date: Yes Hx Pneumococcal Vaccination: No History of Influenza Vaccine: Yes Physical Exam - Physical Exam General Appearance: Present: wd/wn, alert, no apparent distress Head Exam: Present: normal inspection, no evidence of injury Eye Exam: Normal inspection: bilateral, PERRL: bilateral, EOMI: bilateral Ears, Nose, Throat: Present: normal ENT inspection, normal pharynx Neck: Present: normal inspection, nontender, supple, full range of motion. Absent: lymphadenopathy (R), lymphadenopathy (L) Respiratory: Present: no respiratory distress, normal breath sounds, no accessory muscle use, chest nontender, lungs clear Cardiovascular/Chest: Present: regular rate, rhythm, no murmur, normal peripheral pulses Back Exam: Present: normal inspection, normal range of motion, no vertebral tenderness Extremity Exam: Present: bony tenderness - R medial lateral knee and L dorsal foot and L distal tibia, joint swelling - R knee, L ankle Neurological Exam: Present: alert, oriented, normal mood/affect, no motor/ sensory deficits Skin Exam: Present: normal color, warm/dry. Absent: pallor, skin rash ED Progress - Date and Time Seen: Date and Time: 04/21/17 13:26 As pt. has extreme history of substance abuse and mental illness feel that narcotics are too dangerous to give to pt. for a mild injury. Discussed with Dr Alarcon and she agrees. - Results and Orders Patient's Lab Results:: I have reviewed the patient's lab results. - Vital Signs Patient's Vital Signs:: I have reviewed the patient's vital signs. Vital Signs: Vital Signs 04/21/17 11:20 Temperature 36.6 C Pulse Rate 64 Respiratory 14 Rate Blood Pressure 123/77 O2 Sat by Pulse 100 Oximetry - Progress/Reassessment Chief Complaint: Lower Extremity Pain/ Injury Progress:: Unchanged Departure Clinical Impression: Right knee sprain Qualifiers: Encounter type: initial encounter Involved ligament of knee: unspecified ligament Qualified Code(s): S83.91XA - Sprain of unspecified site of right knee , initial encounter Left ankle sprain Qualifiers: Encounter type: initial encounter Involved ligament of ankle: unspecified ligament Qualified Code(s): S93.402A - Sprain of unspecified ligament of left ankle, initial encounter - Departure Disposition: Home self-care Condition: Good Instructions: Knee Pain, Ankle Sprain, [id number], Muscle Strain, Easy-to- Read Additional Instructions: Please keep R knee and L ankle wrapped, elevated and use Tylenol as needed for pain. Please follow up with orthopedics in 2-3 days. Referrals: Cecilio Peraza MD [Primary Care Provider] -
[2017-04-21] MEDS ORDERED: ORPHENADRINE CITRATE 30 MG/ML VIAL ONE (13:13)
== END 2017-04-21 13:27 | disposition home or self-care (01) ==
LOC: ER 10:55
DX: S83.91XA Sprain of unspecified site of right knee, initial encounter (principal); S93.402A Sprain of unspecified ligament of left ankle, initial encounter; W10.9XXA Fall (on) (from) unspecified stairs and steps, initial encounter; Y92.009 Unspecified place in unspecified non-institutional (private) residence as the place of occurrence of the external cause; Z87.442 Personal history of urinary calculi

== ENCOUNTER 2017-06-03 14:35 | Emergency (ER) | payer MEDICARE, MEDICAID ==
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
[2017-06-03] MEDS ORDERED: NALBUPHINE HCL 20 MG/ML AMPUL IM ONE (15:25)
[2017-06-03] MEDS ORDERED: NALBUPHINE HCL 20 MG/ML AMPUL ONE (15:52)
[2017-06-03 16:02] VITALS: BP 122/58
== END 2017-06-03 16:05 | disposition home or self-care (01) ==
LOC: ER 14:35
DX: Y92.009 Unspecified place in unspecified non-institutional (private) residence as the place of occurrence of the external cause; W19.XXXA Unspecified fall, initial encounter; Z87.442 Personal history of urinary calculi; R40.2410 Glasgow coma scale score 13-15, unspecified time; F32.9 Major depressive disorder, single episode, unspecified; F41.9 Anxiety disorder, unspecified; Z87.891 Personal history of nicotine dependence; S20.212A Contusion of left front wall of thorax, initial encounter

== ENCOUNTER 2017-06-13 15:43 | Emergency (ER) | payer MEDICARE, MEDICAID ==
[2017-06-13 15:52] VITALS: BP 155/88
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
== END 2017-06-13 16:33 | disposition home or self-care (01) ==
LOC: ER 15:43
DX: F41.1 Generalized anxiety disorder (principal); G43.909 Migraine, unspecified, not intractable, without status migrainosus; Z53.29 Procedure and treatment not carried out because of patient's decision for other reasons